=== PATIENT | female | born 1990 | race Caucasian/White ===

== ENCOUNTER → 2020-06-16 | Outpatient (CLI) | payer OTHER ==
[2020-06-16 12:48] LABS: HEMATOCRIT 42.8 % (36.0-47.0); HEMOGLOBIN 13.2 g/dl (12.0-15.5); MEAN CORPUSCULAR HEMOGLOBIN 25.3 pg (27.0-33.0); MEAN CORPUSCULAR HGB CONC 30.8 g/dl (32.0-36.5); PLATELET COUNT, AUTOMATED 232 10^3/uL (150-450); RED BLOOD COUNT 5.22 10^6/uL (4.00-5.40); WHITE BLOOD COUNT 7.9 10^3/uL (4.0-10.0)
[2020-06-16 13:31] LABS: FERRITIN 40 NG/ML (8-252); IRON (FE) 50 UG/DL (50-170); PERCENT SATURATION 15.7 % (13.2-45.0); TOTAL IRON BINDING CAPACITY 318 UG/DL (250-450)
[2020-06-16 13:45] LABS: HEPATITIS B SURFACE ANTIGEN NEGATIVE (NEGATIVE)
[2020-06-16 14:13] LABS: HEPATITIS C VIRUS ABY INDEX < 0.0 INDEX (<0.8)
== END ==
LOC: M LAB 09:50
PROVIDERS: ATTEND Student in an Organized Health Care Education/Training Program
DX: R74.8 Abnormal levels of other serum enzymes (principal)

== ENCOUNTER → 2020-06-29 | Outpatient (CLI) | payer OTHER ==
--- NOTE | 2020-06-30 10:13 | REP ---
INDICATION: VENTRAL HERNIA WITHOUT OBSTRUCTION OR GANG COMPARISON: None TECHNIQUE: Axial noncontrast images of the abdomen with coronal and sagittal reformations. This CT examination was performed using the following dose reduction techniques: Automated exposure control, adjustment of mA and/or kv according to the patient's size, and use of iterative reconstruction technique. FINDINGS: There is a midline fat containing ventral hernia extending to the towards the right periumbilical region which measures roughly 4 cm in diameter with an underlying defect through the rectus sheath measuring roughly 2.5 cm diameter. Lung bases are clear. Visualized heart and pericardium normal. Liver, spleen, pancreas, bilateral adrenal glands and kidneys are normal. The visualized enteric system is unremarkable and without obstruction or acute inflammatory process. No ascites. No free air. No adenopathy. No focal inflammatory stranding. Abdominal aorta without aneurysm. Musculoskeletal structures are intact and without acute osseous abnormality. IMPRESSION: Fat containing midline periumbilical ventral hernia. Small periumbilical hernia. <Electronically signed by Karel Villarreal > 06/30/20 [id number]
== END ==
LOC: M RAD 13:30
PROVIDERS: ATTEND Surgery
DX: K43.9 Ventral hernia without obstruction or gangrene (principal)

== ENCOUNTER → 2020-07-22 | Outpatient (CLI) | payer OTHER | LOC: M LABSMTC 11:51 | PROVIDERS: ATTEND Anesthesiology | DX: Z01.812 Encounter for preprocedural laboratory examination (principal); Z20.822 Contact with and (suspected) exposure to COVID-19 ==

== ENCOUNTER 2020-07-27 06:16 | Day surgery (SDC) | payer OTHER ==
[~2020-07-27] VITALS: Ht 170.2 cm; Wt 149.7 kg
--- OUTSIDE RECORDS SUMMARY | 2020-07-27 06:22 | CCD ---
Continuity of Care Document (CCD) Created on: 06/16/2020 Elisa Otero External Reference #: [id number] : 1990 Sex: Female Author Author Elisa CHUN M.D. Organization Unknown Address [address] [place] [address] Phone [phone] Care Team Providers Care Printed Circuit Boards Solder Leveler Name Role Phone Edith Perez M.D. [facility] [phone] Problems Description No Information Available Social History Type Date Description Comments Sex Unknown ETOH Use Denies alcohol use Tobacco Use Start: Unknown Denies Smoking Recreational Drug Use Denies Drug Use Allergies, Adverse Reactions, Alerts Active Allergies Reaction Severity Comments Date Latex Rash 06/16/2020 Adhesives Rash 06/16/2020 Medications Description No Active Medications Immunizations Description No Information Available Vital Signs Date Vital Result Comment 06/16/2020 9:20am BP Systolic 130 mmHg BP Diastolic 65 mmHg Height 67 inches 5'7" Weight 318.12 lb BMI (Body Mass Index) 49.8 kg/m2 [place] Body Weight 135 lb Weight 144.302 kg BSA (Body Surface Area) 2.46 m2 Results Description No Information Available Procedures Description No Information Available Medical Devices Description No Information Available Encounters Description No Information Available Assessments Description No Information Available Plan of Treatment No Information Available Functional Status Description No Information Available Mental Status Description No Information Available Referrals Refer to Reason for Referral Status Appt Date Prashant Chun M.D. UMBILICAL HERNIA Created 06/02/[address] [place] [address].[address] [place], [place] [address] [phone]
--- OUTSIDE RECORDS SUMMARY | 2020-07-27 06:22 | CCD ---
Author Author [facility] Organization [facility] Address Unknown Phone Unavailable Care Team Providers Care Cocktail Lounge Manager Name Role Phone Edith Perez Unavailable PROBLEMS Type Condition ICD9-CM Code CSQ30-NA Code Onset Dates Condition S tatus SNOMED Code Notes Problem Body mass index [BMI] 45.0-49.9, adult Z68.42 A ctive 414231893 Problem Morbid (severe) obesity due to excess calories E66 .01 Active 03689255342833 ALLERGIES No Known Allergies ENCOUNTERS from 1990 to 2020-06-09 Encounter Location Date Provider Diagnosis [facility] [address] [place] [address] Jun, Edith Chris Elevated liver enzymes R74.8 IMMUNIZATIONS Vaccine Route Administration Date Status Influenza (18 yrs & older) Flublok IM Intramuscular May 18, 2020 Administered SOCIAL HISTORY Tobacco Use: Social History Observation Description Date Details (start date - stop date) Never Smoker Sex Assigned At : Social History Observation Description Sex Assigned At Unknown Education: Question Answer Notes Level of Education: Finished High School Audit Question Answer Notes Total Score: 0 Interpretation: Alcohol Education Language: Question Answer Notes Languages spoken: Slovak Episcopalian: Question Answer Notes Episcopalian 33 None Drug and Alcohol Question Answer Notes Total Score: 0 Interpretation: No problems reported Tobacco Use: Question Answer Notes Are you a: never smoker REASON FOR REFERRAL No Information VITAL SIGNS No information MEDICATIONS No Information PROCEDURES No Information RESULTS No Results REASON FOR VISIT lab results MEDICAL (GENERAL) HISTORY Type Description Date Medical History asthma; rarely uses albuterol inhaler. Surgical History cholecystectomy 2018 Surgical History tonsillectomy and adenoids removed as a child Hospitalization History child Goals Section No Information Health Concerns No Information MEDICAL EQUIPMENT No Information MENTAL STATUS No Information FUNCTIONAL STATUS No Information ASSESSMENTS Encounter Date Diagnosis Assessment Notes Treatment Notes Treatm ent Clinical Notes Jun, Elevated liver enzymes (ICD-10 - R74.8) PLAN OF TREATMENT Treatment Notes Test Name Order Date HEPATITIS C ANTIBODY INDEX 2020-06-09 CBC - Complete Blood Count 2020-06-09 IRON (FE) 2020-06-09 TOTAL IRON BINDING CAPACIT 2020-06-09 FERRITIN 2020-06-09 HEPATITIS B SURFACE ANTIGEN 2020-06-09 Insurance Providers Payer Name Payer Address Payer Phone Insured Name Patient Relati onship to Insured Coverage Start Date Coverage End Date [facility] CLAIMS DEPT [address] [place] [phone] MEENU BLAKE self
--- OUTSIDE RECORDS SUMMARY | 2020-07-27 06:22 | CCD ---
Author Author [facility] Organization [facility] Address Unknown Phone Unavailable Care Team Providers Care Hoop Coiling Machine Operator Name Role Phone Edith Perez Unavailable PROBLEMS Type Condition ICD9-CM Code [id number] Code Onset Dates Condition S tatus SNOMED Code Notes Problem Body mass index [BMI] 45.0-49.9, adult Z68.42 A ctive 057789815 Problem Morbid (severe) obesity due to excess calories E66 .01 Active [id number] ALLERGIES No Known Allergies ENCOUNTERS from 1990 to 2020-05-19 Encounter Location Date Provider Diagnosis [facility] [address] [place] [address] May, Edith Chris Encounter for medical examination to [facility] Z00.00 ; Umbilical hernia without obstruction and without gangrene K42.9 ; Periumbilical abdominal pain R10.33 ; Morbid (severe) obesity due to excess calories E66.01 ; Body mass index [BMI] 45.0-49.9, adult Z68.42 and Encounter for immunization Z23 IMMUNIZATIONS Vaccine Route Administration Date Status Influenza [...] Education Language: Question Answer Notes Languages spoken: Kiswahili Pentecostalism: Question Answer Notes Pentecostalism 33 None Drug and Alcohol Question Answer Notes Total Score: 0 Interpretation: No problems reported Tobacco Use: Question Answer Notes Are you a: never smoker REASON FOR REFERRAL No Information VITAL SIGNS Weight 318.2 lbs May, Height 67 in May, BMI 49.83 kg/m2 May, Heart Rate 83 /min May, Respiratory Rate 18 /min May, Temperature 97.9 degrees Fahrenheit May, Oximetry 98 May, Blood pressure systolic 132 mm Hg May, Blood pressure diastolic 84 mm Hg May, MEDICATIONS No Known Medications PROCEDURES from 1988 to 2020-05-19 Procedure Date Ordered Result Body Site Immunization: Flublok Quadrivalent (18 years & older) 0.5mL IM (Influenza) 2020-05-18 N/A RESULTS No Results REASON FOR VISIT ESTABLISH CARE, abdominal pain MEDICAL (GENERAL) HISTORY Type Description Date Medical History asthma; rarely uses albuterol inhaler. Surgical History cholecystectomy 2017 Surgical History tonsillectomy and adenoids removed as a child Hospitalization History child Goals Section No Information Health Concerns No Information MEDICAL EQUIPMENT No Information MENTAL STATUS No Information FUNCTIONAL STATUS No Information ASSESSMENTS Encounter Date Diagnosis Assessment Notes Treatment Notes Treatm ent Clinical Notes May, Encounter for medical examin ation to establish care (ICD-10 - Z00.00) May, Umbilical hernia without obs truction and without gangrene (ICD-10 - K42.9) Abdominal wall defect is likely secondary to diastases recti as patient is 7 months . However due to significant size of ventral wall defect and associated pain will refer to general surgery for further evaluation. May, Periumbilical abdominal pain (ICD-10 - R10.33) Abdominal pain has been pretty stable as patient rates it a 4 out of 10. She denies any episodes of severe pain. Patient was advised that if she develops any sudden, severe abdominal pain, or any associated fevers, nausea, or vomiting with the abdominal pain she should go to the ER immediately. Patient expressed understanding and agreed with plan. May, Morbid (severe) obesity due to excess calories ( ICD-10 - E66.01) Patient was counseled on the importance of maintaining a normal weight. Patient was advised to increase physical activity and avoid processed (fatty foods/high in salt) foods to encourage weight loss which can lead to an improvement in overall health. May, Body mass index [BMI] 45.0-49.9, adult (ICD-10 - Z68.42) 15 May, 2020 Encounter for immunization (ICD-10 - Z23) Patient Educated with: FLU Vaccine, Inactivated [id number] (FLU Vaccine, Inactivated [id number]) Patient received flu shot today. PLAN OF TREATMENT Treatment Notes Assessment Notes Clinical Notes Umbilical hernia without obstruction and without gangrene Abdominal wall defect is likely secondary to diastases recti as patient is 7 months . However due to significant size of ventral wall defect and associated pain will refer to general surgery for further evaluation. Periumbilical abdominal pain Abdominal p ain has been pretty stable as patient rates it a 4 out of 10. She denies any episodes of severe pain. Patient was advised that if she develops any sudden, severe abdominal pain, or any associ ated fevers, nausea, or vomiting with the abdominal pain she should go to the ER immediately. Patient expressed understanding and agreed with plan. Morbid (severe) obesity due to excess calories Patient was counseled on the importance of maintaining a normal weight. Patient was advised to increase physical activity and avoid processed (fatty foods/high in salt) foods to encourage weight loss which can lead to an improvement in overall health. Encounter for immunization Patient Educated with: FLU Vaccine, Inactivated [id number] (FLU Vaccine, Inactivated [id number]) Patient received flu shot today. Treatment Notes Test Name Order Date HEMOGLOBIN A1c 2020-05-19 Comprehensive Metabolic Profile (CMP) 2020-05-19 LIPID PANEL (CARDIAC RISK) 2020-05-19 Next Appt Details prn Reason:as needed Follow Up:prnas needed Insurance Providers Payer Name Payer Address Payer Phone Insured Name Patient Relati onship to Insured Coverage Start Date Coverage End Date [facility] CLAIMS DEPT [address] [facility] [phone] MEENU BLAKE self
--- OUTSIDE RECORDS SUMMARY | 2020-07-27 06:24 | CCD ---
Author Author [facility] Organization [facility] Address Unknown Phone Unavailable Care Team Providers Care Javascript Application Developer Name Role Phone Germán Ricketts MD Unavailable Unavailable Germán Ricketts MD Unavailable Unavailable Germán Ricketts MD Unavailable Unavailable Germán Ricketts MD Unavailable Unavailable Germán Ricketts MD Unavailable Unavailable Germán Ricketts MD Unavailable Unavailable Germán Ricketts MD Unavailable Unavailable Germán Ricketts MD Unavailable Unavailable Germán Ricketts MD Unavailable Unavailable Germán Ricketts MD Unavailable Unavailable Germán Ricketts MD Unavailable Unavailable VITO REIS, Yovany RAZO Unavailable Unavailable Huron, Alla Unavailable Unavailable April, Alla Unavailable Unavailable Huron, Alla Unavailable Unavailable April, Alla Unavailable Unavailable Huron, Alla Unavailable Unavailable April, Alla Unavailable Unavailable Huron, Alla Unavailable Unavailable April, Alla Unavailable Unavailable Huron, Alla Unavailable Unavailable Huron, Alla Unavailable Unavailable Huron, Alla Unavailable Unavailable April, Alla Unavailable Unavailable April, Alla Unavailable Unavailable Huron, Alla Unavailable Unavailable Huron, Alla Unavailable Unavailable Frias-Dylon, Edgardo Unavailable Unavailable Frias-Dylon, Edgardo Unavailable Unavailable Frias-Dylon, Edgardo Unavailable Unavailable Frias-Dylon, Edgardo Unavailable Unavailable Frias-Dylon, Edgardo Unavailable Unavailable Frias-Dylon, Edgardo Unavailable Unavailable Frias-Dylon, Edgardo Unavailable Unavailable Frias-Dylon, Edgardo Unavailable Unavailable Frias-Dylon, Edgardo Unavailable Unavailable Frias-Dylon, Edgardo Unavailable Unavailable Frias-Dylon, Edgardo Unavailable Unavailable Frias-Dylon, Edgardo Unavailable Unavailable CANDELARIO GUNTER Unavailable Unavailable Basiouni, Basiouni MD Unavailable Unavailable Basiouni, Basiouni MD Unavailable Unavailable Basiouni, Basiouni MD Unavailable Unavailable Basiouni, Basiouni MD Unavailable Unavailable Basiouni, Basiouni MD Unavailable Unavailable Farrukh, Yumiko MD Unavailable Unavailable Farrukh, Yumiko MD Unavailable Unavailable Farrukh, Yumiko MD Unavailable Unavailable Farrukh, Yumiko MD Unavailable Unavailable Farrukh, Yumiko MD Unavailable Unavailable Farrukh, Yumiko MD Unavailable Unavailable Farrukh, Yumiko MD Unavailable Unavailable Farrukh, Yumiko MD Unavailable Unavailable Farrukh, Yumiko MD Unavailable Unavailable Farrukh, Yumiko MD Unavailable Unavailable Farrukh, Yumiko MD Unavailable Unavailable Farrukh, Yumiko MD Unavailable Unavailable Farrukh, Yumiko MD Unavailable Unavailable Farrukh, Yumiko MD Unavailable Unavailable Farrukh, Yumiko MD Unavailable Unavailable Farrukh, Yumiko MD Unavailable Unavailable Farrukh, Yumiko MD Unavailable Unavailable Farrukh, Yumiko MD Unavailable Unavailable Farrukh, Yumiko MD Unavailable Unavailable Farrukh, Yumiko MD Unavailable Unavailable Farrukh, Yumiko MD Unavailable Unavailable SHANTELL BAUGH Unavailable Unavailable KEMI DORMAN MD Unavailable Unavailable Lashay Nicolas MD Unavailable Unavailable Lashay Nicolas MD Unavailable Unavailable Lashay Nicolas MD Unavailable Unavailable Lashay Nicolas MD Unavailable Unavailable Lashay Nicolas MD Unavailable Unavailable Lashay Nicolas MD Unavailable Unavailable Lashay Nicolas MD Unavailable Unavailable Lashay Nicolas MD Unavailable Unavailable Lashay Nicolas MD Unavailable Unavailable Re-disclosure Warning The records that you are about to access may contain information from federally-assisted alcohol or drug abuse programs. If such information is present, then the following federally mandated warning applies: This information has been disclosed to you from records protected by federal confidentiality rules (42 CFR part 2). The federal rules prohibit you from making any further disclosure of this information unless further disclosure is expressly permitted by the written consent of the person to whom it pertains or as otherwise permitted by 42 CFR part 2. A general authorization for the release of medical or other information is NOT sufficient for this purpose. The Federal rules restrict any use of the information to criminally investigate or prosecute any alcohol or drug abuse patient.The records that you are about to access may contain highly sensitive health information, the redisclosure of which is protected by Article 27-F of the [facility] Public Health law. If you continue you may have access to information: Regarding HIV / AIDS; Provided by facilities licensed or operated by the [facility] Office of Mental Health; or Provided by the [facility] Office for People With Developmental Disabilities. If such information is present, then the following [facility] mandated warning applies: This information has been disclosed to you from confidential records which are protected by state law. State law prohibits you from making any further disclosure of this information without the specific written consent of the person to whom it pertains, or as otherwise permitted by law. Any unauthorized further disclosure in violation of state law may result in a fine or mcc sentence or both. A general authorization for the release of medical or other information is NOT sufficient authorization for further disc losure. Encounters Encounter Providers Location Date Indications Data Source(s ) Unknown [id number] [address] 06/08/2020 12:00:00 AM EST eCW1 ([facility]) Outpatient [address] [facility] [address] 05/18/2020 12:00:00 AM EST eCW1 ([facility]) OUTPATIENT [id number]-[facility] 12/02/2019 01:17:36 PM EDT [facility] Outpatient Attender: DANNI PADRON NP 5F-OB 0 11/20/2019 01:34:25 PM EDT - 11/20/2019 02:38:06 PM EDT [facility] OUTPATIENT 5F 11/12/2019 01:12:45 PM EDT [facility] 11/04/2019 02:05:23 PM EDT [facility] OUTPATIENT Referrer: DANNI PADRON NP 5F 0 10/29/2019 01:36:09 PM EDT - 10/29/2019 01:36:24 PM EDT [facility] INPATIENT Attender: SHANTELL BAUGH 5F-SLLD 10/11/2019 03:36: 43 PM EDT [facility] 10/10/2019 08:16:22 AM EDT [facility] Inpatient Attender: Aileen Gallagher MDAdmitter: AYAN DORMAN MD 5F-PP 10/10/2019 08:14:00 AM EDT - 10/14/2019 01:01:00 PM EDT [facility] Patient discharged. Outpatient Attender: DANNI PADRON NPReferrer: DANNI PADRON NP 5F-SLUS 10/09/2019 10:02:54 AM EDT - 10/09/2019 11:59:00 PM EDT [facility] Patient discharged. OUTPATIENT Attender: Germán Ricketts MD 5F-OB 0 09:57:15 AM EDT - 10/09/2019 11:17:05 AM EDT [facility] OUTPATIENT 5F 10/08/2019 03:19:19 PM EDT [facility] OUTPATIENT Attender: Alla RockReferrer: Alla carranza 5F-SLUS 10/06/2019 09:03:45 AM EDT - 10/06/2019 11:59:00 PM EDT [facility] Patient discharged. Outpatient Attender: DANNI PADRON NP 5F-OB 0 10/06/2019 08:31:22 AM EDT - 10/06/2019 09:51:48 AM EDT [facility] OUTPATIENT 5F-OB 10/03/2019 01:57:19 PM EDT [facility] Outpatient Attender: Edgardo ShawReferrer : Edgardo Shaw 5F-SLUS 10/02/2019 01:30:25 PM EDT - 10/02/2019 11:59:00 PM EDT [facility] Patient discharged. 10/02/2019 01:28:41 PM EDT [facility] 10/02/2019 01:28:26 PM EDT [facility] 10/02/2019 10:29:05 AM EDT [facility] 10/02/2019 10:24:58 AM EDT [facility] Outpatient Attender: Aileen Gallagher MDAdmitter: Aileen Gallagher MD 5F-SLLD 10/02/2019 10:23:00 AM EDT - 10/02/2019 12:32:00 PM EDT [facility] Patient discharged. Outpatient Attender: Edgardo Shaw 5F-OB 10/02/2019 09:32:42 AM EDT - 10/02/2019 10:42:16 AM EDT [facility] OUTPATIENT Attender: Alla RockReferrer: Alla carranza 5F-LB 09/29/2019 02:24:00 PM EDT - 09/29/2019 11:59:00 PM EDT [facility] Patient discharged. 5F-LB 09/29/2019 02:21:50 PM EDT [facility] Attender: Lashay Nicolas MD 5F-OB 09/29/2019 01:43:24 P M EDT [facility] Outpatient Attender: Alla Rock 5F-OB 09/03 01:06:55 PM EDT - 09/29/2019 02:19:40 PM EDT [facility] Outpatient Attender: Yumiko MARTINESeferrer: Lashay Nicolas MD 5F-SLUS 09/29/2019 01:05:42 PM EDT - 09/29/2019 02:23:00 PM EDT [facility] Patient discharged. OUTPATIENT 5F-OB 09/29/2019 07:02:41 AM EDT [facility] 09/25/2019 08:57:10 AM EDT [facility] Outpatient Attender: Alla RockReferrer: Alla carranza 5F-SLUS 09/25/2019 08:56:14 AM EDT - 09/25/2019 11:59:00 PM EDT [facility] Patient discharged. OUTPATIENT Attender: Lashay Nicolas MD 5F-OB 2019 08:55:59 AM EDT - 09/25/2019 10:33:27 AM EDT [facility] OUTPATIENT Referrer: DANNI PADRON NP 5F 0 09/24/2019 04:08:04 PM EDT - 09/24/2019 11:59:00 PM EDT [facility] Patient discharged. Outpatient Attender: Alla RockReferrer: Alla carranza 5F-LB 09/22/2019 09:48:00 AM EDT - 09/22/2019 11:59:00 PM EDT [facility] Patient discharged. Outpatient Attender: Alla Rock 5F-OB 09/03 08:32:49 AM EDT - 09/22/2019 09:41:03 AM EDT [facility] Outpatient Attender: Alla Rock 5F-OB 09/02 10:45:47 AM EDT - 09/19/2019 12:05:55 PM EDT [facility] Outpatient Attender: Alla RockReferrer: Alla carranza 5F-SLUS 09/19/2019 10:27:07 AM EDT - 09/19/2019 11:59:00 PM EDT [facility] Patient discharged. 09/19/2019 10:24:07 AM EDT [facility] 09/19/2019 10:23:51 AM EDT [facility] Outpatient Attender: Alla RockReferrer: Alla carranza 5F-LB 09/17/2019 11:04:00 AM EDT - 09/17/2019 11:59:00 PM EDT [facility] Patient discharged. OUTPATIENT Referrer: DANNI PADRON NP 5F 0 09/17/2019 10:38:25 AM EDT - 09/17/2019 11:03:15 AM EDT [facility] OUTPATIENT Attender: Alla RockReferrer: Alla carranza 5F-SLUS 09/17/2019 10:14:20 AM EDT - 09/17/2019 11:03:00 AM EDT [facility] Patient discharged. 09/17/2019 10:13:55 AM EDT [facility] 09/17/2019 10:13:40 AM EDT [facility] Outpatient Attender: Alla Rock 5F-OB 09/02 09:24:28 AM EDT - 09/17/2019 11:01:26 AM EDT [facility] OUTPATIENT 5F-OB 08/26/2019 08:21:57 AM EDT [facility] Outpatient Attender: Alla Rock 5F-OB 08/02 09:31:25 AM EDT - 08/20/2019 09:42:53 AM EDT [facility] OUTPATIENT Attender: DANNI PADRON NPReferrer: DANNI PADRON [employer] OPERATOR 5F-LB 08/06/2019 10:17:00 AM EST - 08/06/2019 11:59:00 PM [facility] Patient discharged. 5F-LB 08/06/2019 10:16:59 AM [facility] Outpatient Attender: DANNI PADRON [employer]ANT OPERATOR 5F-OB 0 08/06/2019 09:35:41 AM EST - 08/06/2019 10:12:10 AM [facility] OUTPATIENT 5F 07/30/2019 10:55:41 AM [facility] OUTPATIENT Attender: Alla Rock 5F-OB 07/05 01:18:27 PM EST - 07/16/2019 01:58:25 PM [facility] OUTPATIENT Referrer: DANNI PADRON [employer] OPERATOR 5F 0 07/16/2019 12:33:27 PM EST - 07/16/2019 02:48:42 PM [facility] OUTPATIENT Attender: CANDELARIO GUNTER 5F 07/04/2019 11:48:51 AM [facility] 06/16/2019 11:16:47 AM [facility] Outpatient Attender: Alla RockReferrer: Alla carranza 5F-SLUS 06/10/2019 12:21:12 PM EST - 06/10/2019 11:59:00 PM [facility] Patient discharged. OUTPATIENT Attender: lAla RockReferrer: Alla carranza 5F-LB 06/06/2019 10:44:00 AM EST - 06/06/2019 11:59:00 PM [facility] Patient discharged. 06/06/2019 10:38:50 AM [facility] OUTPATIENT Attender: CANDELARIO Dhillonender: Alla ledbetter 5F 06/06/2019 09:25:54 AM EST - 06/06/2019 11:59:00 PM EST [facility] Patient discharged. OUTPATIENT Attender: Alla Rock 5F-OB 08/2019 09:01:35 AM EST - 06/06/2019 09:52:27 AM EST [facility] 06/06/2019 09:01:32 AM [facility] Immunizations Vaccine Date Status Description Data Source(s) influenza, recombinant, quadrIvalent,injectable, prese rvative free 05/18/2020 02:56:00 PM EST completed eCW1 ([facility]) influenza, recombinant, quadrIvalent,injectable, prese rvative free 05/18/2020 02:56:00 PM EST completed eCW1 ([facility]) Tdap 08/06/2019 12:00:00 AM EST completed Tdap 08/06/2019 [facility] Medications Medication Brand Name Start Date Product Form Dose Route Admi nistrative Instructions Pharmacy Instructions Status Indications Reaction Description Data Source(s) Labetalol hydrochloride 200 MG Oral Tablet labetaloL ( NORMODYNE) 200 mg tablet labetaloL (NORMODYNE) 200 mg tablet 09/25/2019 12:00:00 AM EDT 200 mg oral aborted Gestational hypertension, third trimester Take 1 tablet (200 mg total) by mouth 2 (two) times a day. [facility] Gestational hypertension, third trimeste r blood pressure kit-extra large kit [id number] 09/25/2019 12:00:00 AM EDT 1 U Does not apply active Gestational hypertension, third trimester 1 Units 3 times a day. [facility] Gestational hypertension, third trimeste r Omeprazole 20 MG Delayed Release Oral Ca psule omeprazole (PriLOSEC) [address] capsule omeprazole (PriLOSEC) [address] capsule 08/06/2019 12:00:00 AM ES T 20 mg oral active Take 1 cap ruthie (20 mg total) by mouth 1 (one) time each day. Do not crush or chew. [facility] Sertraline 25 MG Oral Tablet sertraline (ZOLOFT) 25 mg tablet sertraline (ZOLOFT) 25 mg tablet 06/06/2019 12:00:00 AM EST active Depression affecting in second trimester, antepartum Ta ke one tablet PO daily for one week then increase to 2 tablets daily [facility] Depression affecting in second trimester, antepartum Aspirin 81 MG Chewable Tablet aspirin 81 mg chewable t ablet aspirin 81 mg chewable tablet 05/06/2019 12:00:00 AM EST 81 mg oral ac tive Chew 1 tablet (81 mg total) 1 (one) time each day. [facility] Insurance Providers Payer name Policy type / Coverage type Policy ID Covered constitution party ID Covered constitution party's relationship to mattson Policy [place] Plan Information [facility] [id number] 800 [facility] [id number] Self [id number] 800 [facility] [id number] MEDICAID [place] [id number] Self [id number] Problems, Conditions, and Diagnoses Code Display Name Description Problem Type Effective Dates Data Source(s) E66.01 [id number] Morbid (severe) obesity due to excess c alories Problem 05/18/2020 12:00:00 AM EST eCW1 ([facility]) Z68.42 [id number] Body mass index [BMI] 45.0-49.9, adult Pr oblem 05/18/2020 12:00:00 AM EST eCW1 ([facility]) Z33.1 state, incidental state, incidental Diagnosis 11/20/2019 01:34:25 PM EDT [facility] Follow-up Follow-up Diagnosis 10/29/2019 01:36:09 PM EDT [facility] Z34.90 Encounter for supervision of normal , unspecified, unspecified trimester Encounter for supervision of normal preg nazia, unspecified, unspecified trimester Diagnosis 10/10/2019 08:14:00 AM EDT [facility] Scheduled Induction Scheduled Induction Diagnosis 020 08:14:00 AM EDT [facility] O16.3 Unspecified maternal hypertension, third trimester Unspecified maternal hypertension, third trimester Diagnosis 10/09/2019 11:10:49 AM EDT [facility] Z34.93 Encounter for supervision of normal , unspecified, third trimester Encounter for supervision of normal preg nazia, unspecified, third trimester Diagnosis 10/09/2019 09:57:15 AM EDT [facility] Z34.83 Encounter for supervision of other ruby l , third trimester Encounter for supervision of other normal , third trimester Diagnosis 10/06/2019 09:03:45 AM EDT [facility] Hypertension Hypertension Diagnosis 10/02/2019 10:23:00 A M EDT [facility] O13.3 Gestational [-induc ed] hypertension without significant proteinuria, third trimester Gestational (-induced) hyperten mike without significant proteinuria, third trimester Diagnosis 10/01 09:32:42 AM EDT [facility] Z3A.36 36 weeks gestation of 36 weeks gestati on of Diagnosis 10/02/2019 09:32:42 AM EDT [facility] Z3A.35 35 weeks gestation of 35 weeks gestati on of Diagnosis 09/29/2019 01:06:55 PM EDT [facility] F41.1 Generalized anxiety disorder Generalized anxiety disor jameel Diagnosis 09/24/2019 04:08:04 PM EDT [facility] Z3A.34 34 weeks gestation of 34 weeks gestati on of Diagnosis 09/22/2019 08:32:49 AM EDT [facility] Z3A.30 30 weeks gestation of 30 weeks gestati on of Diagnosis 08/20/2019 09:31:25 AM EDT [facility] Z13.1 Encounter for screening for diabetes brian litus Encounter for screening for diabetes mellitus Diagnosis 08/06/2019 10:17:45 AM [facility] Z3A.28 28 weeks gestation of 28 weeks gestati on of Diagnosis 08/06/2019 10:17:45 AM [facility] Z3A.25 25 weeks gestation of 25 weeks gestati on of Diagnosis 07/16/2019 01:18:27 PM [facility] Z34.82 Encounter for supervision of other ruby l , second trimester Encounter for supervision of other normal , second trimester Diagnosis 07/16/2019 01:18:27 PM [facility] F32.9 Major depressive disorder, single episod e, unspecified Major depressive disorder, single episode, unspecified Diagnosis 07/16/2019 12:33:27 PM [facility] O99.342 Other mental disorders complicating preg nazia, second trimester Other mental disorders complicating , second trimester Diagnosis 07/16/2019 12:33:27 PM [facility] Z91.040 Latex allergy status Latex allergy status Diagnosis 06/06/2019 10:44:05 AM EST [facility] Z3A.19 19 weeks gestation of 19 weeks gestati on of Diagnosis 06/06/2019 09:01:35 AM [facility] Surgeries/Procedures Procedure Description Date Indications Data Source(s) Immunization: Flublok Quadrivalent (18 years & older) 0.5mL IM (Influenza) 05/18/2020 12:00:00 AM EST eCW1 ([facility]) CBC AND DIFFERENTIAL CBC AND DIFFERENTIAL Routine 10/14/2019 7:56 AM EDT 10/14/2019 11:56:00 AM EDT [facility] BLOOD COUNT COMPLETE AUTO&AUTO DIFRNTL WBC COUNT HC CBC W/ DIFFERENTIAL Routine 10/13/2019 5:58 AM EDT 10/13/2019 09:58:00 AM EDT [facility] BASIC METABOLIC PANEL CALCIUM TOTAL BASIC METABOLIC PANEL Routi ne 10/13/2019 5:58 AM EDT 10/13/2019 09:58:00 AM EDT [facility] CREATININE OTHER SOURCE MICROALBUMIN / CREATININE URINE RATIO R outine 10/10/2019 10:50 AM EDT 10/10/2019 02:50:00 PM EDT [facility] TOXICOLOGY SCREEN, URINE TOXICOLOGY SCREEN, URINE Routine 10/10/2019 10:50 AM EDT 10/10/2019 02:50:00 PM EDT [facility] URNLS DIP STICK/TABLET REAGENT AUTO MICROSCOPY URINALYSIS W ITH MICROSCOPIC Routine 10/10/2019 10:50 AM EDT 10/10/2019 02:50:00 PM EDT [facility] PROTHROMBIN TIME PROTHROMBIN TIME NO THERAPY OR UNKNOWN Routine 10/10/2019 10:01 AM EDT 10/10/2019 02:01:00 PM EDT [facility] THROMBOPLASTIN TIME PARTIAL PLASMA/WHOLE BLOOD PTT NO THERA PY OR UNKNOWN Routine 10/10/2019 10:01 AM EDT 10/10/2019 02:01:00 PM EDT [facility] FIBRINOGEN ANTIGEN FIBRINOGEN Routine 10/10/2019 10:01 AM EDT 10/10/2019 02:01:00 PM EDT [facility] BLOOD COUNT COMPLETE AUTO&AUTO DIFRNTL WBC COUNT HC CBC W/ DIFFERENTIAL Routine 10/10/2019 10:01 AM EDT 10/10/2019 02:01:00 PM EDT [facility] BLOOD TYPING ABO TYPE AND SCREEN STAT 10/10/2019 10:01 AM EDT 10/10/2019 02:01:00 PM EDT [facility] URIC ACID BLOOD URIC ACID Routine 10/10/2019 10:01 AM EDT 10/10/2019 02:01:00 PM EDT [facility] MAGNESIUM MAGNESIUM Routine 10/10/2019 10:01 AM EDT 10/10/2019 02:01:00 PM EDT [facility] LACTATE DEHYDROGENASE LDH LACTATE DEHYDROGENASE Routine 10/10/2019 10:01 AM EDT 10/10/2019 02:01:00 PM EDT [facility] COMPREHENSIVE METABOLIC PANEL COMPREHENSIVE METABOLIC PANEL Rou jennfyer 10/10/2019 10:01 AM EDT 10/10/2019 02:01:00 PM EDT [facility] BIOPHYSICAL PROFILE NON-STRESS TESTING US BIOPHYSICAL PROFILE WITH NON STRESS TEST Routine 10/09/2019 11:46 AM EDT Hypertension affecting in third trimester 36 weeks gestation of 10/09/2019 03:46:57 PM EDT 3 6 weeks gestation of pregnancyHypertension affecting in third trimester [facility] 36 weeks gestation of Hypertension affecting in thir d trimester BIOPHYSICAL PROFILE NON-STRESS TESTING US BIOPHYSICAL PROFILE WITH NON STRESS TEST Routine 10/06/2019 9:28 AM EDT care, subsequent , third trimester Gestational hypertension, third trimester 10/06/2019 01:28:2 7 PM EDT Gestational hypertension, third trimesterPrenatal care, subsequent , third trimester [facility] Gestational hypertension, third trimeste r care, subsequent , thi rd trimester BIOPHYSICAL PROFILE NON-STRESS TESTING US BIOPHYSICAL PROFILE WITH NON STRESS TEST Routine 10/02/2019 2:03 PM EDT 36 weeks gestation of Transient hypertension of in third trimester 10/02/2019 06:03:34 PM EDT Transient hypertension of in t hird [id number] weeks gestation of [facility] Transient hypertension of in t hird trimester 36 weeks gestation of CBC AND DIFFERENTIAL CBC AND DIFFERENTIAL STAT 10/02/2019 11:02 AM EDT 10/02/2019 03:02:00 PM EDT [facility] URIC ACID BLOOD URIC ACID STAT 10/02/2019 11:02 AM EDT 10/02/2019 03:02:00 PM EDT [facility] LACTATE DEHYDROGENASE LDH LACTATE DEHYDROGENASE STAT 0 11:02 AM EDT 10/02/2019 03:02:00 PM EDT [facility] COMPREHENSIVE METABOLIC PANEL COMPREHENSIVE METABOLIC PANEL STA T 10/02/2019 11:02 AM EDT 10/02/2019 03:02:00 PM EDT [facility] URINALYSIS W/MICROSCOPIC & CULTURE IF INDICATED <td><c ontent ID="[id number]">URINALYSIS W/MICROSCOPIC & CULTURE IF INDICATED</content></td><td>STAT</td><td>10/02/2019 11:00 AM EDT</td><td></td><td><paragraph styleCode="header">Results for this procedure are in the <content styleCode="[id number]">results section</content>.</paragraph></td> 10/02/2019 03:00:00 PM EDT [facility] HIV 1&2 AB/AG SCREEN <td><content ID="[email or web address]">HIV 1&2 AB/AG SCREEN</content></td><td>Routine</td><td>09/29/2019 2:25 PM EDT</td><td><paragraph> care, subsequent , third trimester</paragraph></td><td><paragraph styleCode="header">Results for this procedure are in the <content styleCode="[id number]">results section</content>.</paragraph></td> 09/29/2019 06:25:00 PM EDT care, subsequent , third trimester [facility] care, subsequent , thi rd trimester IADNA MULTIPLE ORGANISMS DIRECT PROBE TQ C. TRACHOMAT IS / N. GONORRHOEAE, DNA PROBE Routine 09/29/2019 2:25 PM EDT care, subsequent , third trimester 0 09/29/2019 06:25:00 PM EDT care, subsequent , third trimester [facility] care, subsequent , thi rd trimester BLOOD COUNT COMPLETE AUTOMATED CBC Routine 0 2:25 PM EDT care, subsequent , third trimester 0 09/29/2019 06:25:00 PM EDT care, subsequent , third trimester [facility] care, subsequent , thi rd trimester BIOPHYSICAL PROFILE NON-STRESS TESTING US BIOPHYSICAL PROFILE WITH NON STRESS TEST Routine 09/29/2019 1:44 PM EDT Gestational hypertension, third trimester 09/29/2019 05:44:0 3 PM EDT Gestational hypertension, third trimester [facility] Gestational hypertension, third trimeste r CULTURE, GENITAL STREP CULTURE, GENITAL STREP Routine 09/29/2019 09/29/2019 12:00:00 AM EDT [facility] US PREG UTERUS REAL TIME F/U TRNSABDL PER FETUS US OB FOLLOW UP/ONE TIME BIOPHYSICAL PROFILE WITH NON STRESS TEST Routine 09/25/2019 9:46 AM EDT care, subsequent , third trimester High blood pressure affecting in third trimester, antepartum 09/25/2019 01:46:39 PM EDT High blood pressure affecting in third trimester, antepartumPrenatal care, subsequent , third trimester [facility] High blood pressure affecting in third trimester, antepartum care, subsequent , thi rd trimester PROTEIN TOTAL XCPT REFRACTOMETRY URINE PROTEIN, URINE, RANDOM R outine 09/22/2019 9:55 AM EDT High blood pressure affecting in third trimester, antepartum 09/22/2019 01:55:00 PM EDT High blood pressure affecting in third trimester, antepartum [facility] High blood pressure affecting in third trimester, antepartum CREATININE OTHER SOURCE CREATININE, URINE, RANDOM Routine 09/22/2019 9:55 AM EDT High blood pressure affecting in third trimester, antepartum 09/22/2019 01:55:00 PM EDT High blood pressure affecting in third trimester, antepartum [facility] High blood pressure affecting in third trimester, antepartum CBC AND DIFFERENTIAL CBC AND DIFFERENTIAL Routine 09/22/2019 9:55 AM EDT High blood pressure affecting in third trimester, antepartum 09/22/2019 01:55:00 PM EDT High blood pressure affecting in third trimester, antepartum [facility] High blood pressure affecting in third trimester, antepartum URIC ACID BLOOD URIC ACID Routine 09/22/2019 9:55 AM EDT High blood pressure affecting in third trimester, antepartum 09/22/2019 01:55:00 PM EDT High blood pressure affecting in third trimester, antepartum [facility] High blood pressure affecting in third trimester, antepartum LACTATE DEHYDROGENASE LDH LACTATE DEHYDROGENASE Routine 09/22/2019 9:55 AM EDT High blood pressure affecting in third trimester, antepartum 09/22/2019 01:55:00 PM EDT High blood pressure affecting in third trimester, antepartum [facility] High blood pressure affecting in third trimester, antepartum COMPREHENSIVE METABOLIC PANEL COMPREHENSIVE METABOLIC PANEL Elvin gallegose 09/22/2019 9:55 AM EDT High blood pressure affecting in third trimester, antepartum 09/22/2019 01:55:00 PM EDT High blood pressure affecting in third trimester, antepartum [facility] High blood pressure affecting in third trimester, antepartum BIOPHYSICAL PROFILE NON-STRESS TESTING US BIOPHYSICAL PROFILE WITH NON STRESS TEST Routine 09/19/2019 10:48 AM EDT High blood pressure affecting in third trimester, antepartum 09/19/2019 02:48:11 PM EDT High blood pressure affecting in third trimester, antepartum [facility] High blood pressure affecting in third trimester, antepartum PROTHROMBIN TIME PROTHROMBIN TIME NO THERAPY OR UNKNOWN Routine 09/17/2019 11:06 AM EDT High blood pressure affecting in third trimester, antepartum 09/17/2019 03:06:00 PM EDT High blood pressure affecting in third trimester, antepartum [facility] High blood pressure affecting in third trimester, antepartum PROTEIN TOTAL XCPT REFRACTOMETRY URINE PROTEIN, URINE, RANDOM R outine 09/17/2019 11:06 AM EDT High blood pressure affecting in third trimester, antepartum 09/17/2019 03:06:00 PM EDT High blood pressure affecting in third trimester, antepartum [facility] High blood pressure affecting in third trimester, antepartum CREATININE OTHER SOURCE CREATININE, URINE, RANDOM Routine 09/17/2019 11:06 AM EDT High blood pressure affecting in third trimester, antepartum 09/17/2019 03:06:00 PM EDT High blood pressure affecting in third trimester, antepartum [facility] High blood pressure affecting in third trimester, antepartum THROMBOPLASTIN TIME PARTIAL PLASMA/WHOLE BLOOD PTT NO THERA PY OR UNKNOWN Routine 09/17/2019 11:06 AM EDT High blood pressure affecting in third trimester, antepartum 09/17/2019 03:06:00 PM EDT High blood pressure affecting in third trimester, antepartum [facility] High blood pressure affecting in third trimester, antepartum BLOOD COUNT COMPLETE AUTOMATED CBC Routine 0 11:06 AM EDT High blood pressure affecting in third trimester, antepartum 09/17/2019 03:06:00 PM EDT High blood pressure affecting in third trimester, antepartum [facility] High blood pressure affecting in third trimester, antepartum URIC ACID BLOOD URIC ACID Routine 09/17/2019 11:06 AM EDT High blood pressure affecting in third trimester, antepartum 09/17/2019 03:06:00 PM EDT High blood pressure affecting in third trimester, antepartum [facility] High blood pressure affecting in third trimester, antepartum LACTATE DEHYDROGENASE LDH LACTATE DEHYDROGENASE Routine 09/17/2019 11:06 AM EDT High blood pressure affecting in third trimester, antepartum 09/17/2019 03:06:00 PM EDT High blood pressure affecting in third trimester, antepartum [facility] High blood pressure affecting in third trimester, antepartum COMPREHENSIVE METABOLIC PANEL COMPREHENSIVE METABOLIC PANEL Elvin burger 09/17/2019 11:06 AM EDT High blood pressure affecting in third trimester, antepartum 09/17/2019 03:06:00 PM EDT High blood pressure affecting in third trimester, antepartum [facility] High blood pressure affecting in third trimester, antepartum BIOPHYSICAL PROFILE NON-STRESS TESTING US BIOPHYSICAL PROFILE WITH NON STRESS TEST Routine 09/17/2019 10:32 AM EDT care, subsequent , third trimester High blood pressure affecting in third trimester, antepartum 09/17/2019 02:32:59 PM EDT High blood pressure affecting in third trimester, antepartumPrenatal care, subsequent , third trimester [facility] High blood pressure affecting in third trimester, antepartum care, subsequent , thi rd trimester 50 GRAM GLUCOSE 50 GRAM GLUCOSE Routine 08/06/2019 11:[address] 28 weeks gestation of Screening for diabetes mellitus 08/06/2019 04:24:00 PM EST S creening for diabetes [id number] weeks gestation of [facility] Screening for diabetes mellitus 28 weeks gestation of BLOOD COUNT COMPLETE AUTOMATED CBC Routine 0 11:24 AM EST 28 weeks gestation of Screening for diabetes mellitus 08/06/2019 04:24:00 PM EST S creening for diabetes [id number] weeks gestation of [facility] Screening for diabetes mellitus 28 weeks gestation of HEMOGLOBIN GLYCOSYLATED A1C HEMOGLOBIN A1C Routine 08/06/2019 11:24 AM EST 28 weeks gestation of Screening for diabetes mellitus 08/06/2019 04:24:00 PM EST S creening for diabetes [id number] weeks gestation of [facility] Screening for diabetes mellitus 28 weeks gestation of US PREG UTERUS REAL TIME F/U TRNSABDL PER FETUS US OB FOLLOW UP TRANSABDOMINAL APPROACH Routine 06/10/2019 12:52 PM EST care, subsequent , second trimester 06/10/2019 05:52:00 PM EST care, subsequent , second trimester [facility] care, subsequent , sec ond trimester Results ID Date Data Source [id number] 07/22/2020 11:00:00 AM EST [facility] Name Value Range Interpretation Code Description Data Dominga rce(s) Supporting Document(s) SARS coronavirus 2 RNA Not Detected [facility] This lab was ordered by [facility] and reported by [facility]. ID Date Data Source [id number] 12/02/2019 01:17:36 PM EDT [facility] Name Value Range Interpretation Code Description Data Dominga rce(s) Supporting Document(s) Telephone Encounter [facility] PCXQXt4rGbGGLmCl59/NLQcsPFZjt9ZbDWxcPUo3PIvpFLEeV0UcTBT1gY4vZTM1YTcKXvEyNhNvLsAv lbm [file] YY5VOTO5JDLyHx6SHJFdLH5QGNHgSLUnLEKJTkDcLB AtZmQuDTBsOIAUBBulHUIkJ9KgXFX4EAMjMg8+YYpsDW3LI1UlONG0LEx6LF4+OVsrLU2IvUMGS7PduY QsJHsoM1HDEX8YPMC6WO5HbQPkIN3McZXZO8AfxGXhPg8yLQRwm2KbZe6gP3RGAJMQCSOcTIjbWXcuOT OaNKl8C2V4FDFlX3SGD048bPVroBn3Et4lX2WRBFnW OxSiSTzjNWlzNLSeKLn6M2P0FVIuH2JPG0ZlUjLzsuBkW4I+FnFvALTGOM1ILIUDMYc5D2J6xXCeL4M4 iDbWiXC1SP9MSU9BpENolCPbh10+ZzFXVyGvZ4MXE9YJBT5TYGt6Q7L8jUDnC7R6jLkBkFP5AN7AMI3T sJfpgAVvFo1nSKfyBWK+Jn3BZs5SJuMvOS8vjh8MNu LlZGQmDoyTMpt4V9ugefb8pYUhNnH5C4R2QtM9oZZpIY6OD1X8sJQcZUU8GRNmtGZ+Oz9Cm9JsCYDwKV h8H6mfRHVhQJOfJfIqwQ88G++6kfaeqRF0Q9q3CEPGsDRqiKsRfaMtK4bHMSI7d9B4ZJm/Ui1AKIE4aQ d3bKCmCFEoPFe7qD7ytEp7DfWdOF92IJOjDFhwzQ7p Kwj8P2Lel1CqSi3iDi9fnRSrMg5MNcNpPKT2xeGpSvAYJzF1nGvwwptmVTE9Q2y8sKF1Dg68d5llilQu a4ByBvC7FLsuHCJgJgRhcxRpNSP1rxLgsE8psyWnSa3VTIBhSJymuzZvCiTDCw2EPvAgDD57XtoefE5p dGE+DQogICAgICAgICAgICAgICAgICAgICAgICAgIC AgICAgICAgICAgICAgICAgICAgICAgICAgICAgICAgICAgICAgICAgICAgICAgICAgICAgICAgICAgIC AgICAgICAgICAgICAgDQogICAgICAgICAgICAgICAgICAgICAgICAgICAgICAgICAgICAgICAgICAgIC AgICAgICAgICAgICAgICAgICAgICAgICAgICAgICAg ICAgICAgICAgICAgICAgICAgICAgICAgDQogICAgICAgICAgICAgICAgICAgICAgICAgICAgICAgICAg ICAgICAgICAgICAgICAgICAgICAgICAgICAgICAgICAgICAgICAgICAgICAgICAgICAgICAgICAgICAg ICAgICAgDQogICAgICAgICAgICAgICAgICAgICAgIC AgICAgICAgICAgICAgICAgICAgICAgICAgICAgICAgICAgICAgICAgICAgICAgICAgICAgICAgICAgIC AgICAgICAgICAgICAgICAgDQogICAgICAgICAgICAgICAgICAgICAgICAgICAgICAgICAgICAgICAgIC AgICAgICAgICAgICAgICAgICAgICAgICAgICAgICAg ICAgICAgICAgICAgICAgICAgICAgICAgICAgDQogICAgICAgICAgICAgICAgICAgICAgICAgICAgICAg ICAgICAgICAgICAgICAgICAgICAgICAgICAgICAgICAgICAgICAgICAgICAgICAgICAgICAgICAgICAg ICAgICAgICAgDQogICAgICAgICAgICAgICAgICAgIC AgICAgICAgICAgICAgICAgICAgICAgICAgICAgICAgICAgICAgICAgICAgICAgICAgICAgICAgICAgIC AgICAgICAgICAgICAgICAgICAgDQogICAgICAgICAgICAgICAgICAgICAgICAgICAgICAgICAgICAgIC AgICAgICAgICAgICAgICAgICAgICAgICAgICAgICAg ICAgICAgICAgICAgICAgICAgICAgICAgICAgICAgDQogICAgICAgICAgICAgICAgICAgICAgICAgICAg ICAgICAgICAgICAgICAgICAgICAgICAgICAgICAgICAgICAgICAgICAgICAgICAgICAgICAgICAgICAg ICAgICAgICAgICAgDQogICAgICAgICAgICAgICAgIC AgICAgICAgICAgICAgICAgICAgICAgICAgICAgICAgICAgICAgICAgICAgICAgICAgICAgICAgICAgIC HcONDyRMTlEEAeZCRmCHSiCPUfADLqUDo3L4jhHRDqITFiAX6uYHv5Pg5+EJuZLzNvDKC3thOavW1RCP 8ob8DcONomUZMne4FtEQj3QP4YJAViCPkiGM5LHUrh tm1HYIWcOMWdcYNFi3trAoZuCBF8BHQhXcokCB4JZUDgO4twpqKvOGWjHXWEBC0ERfBjX2OihA68DKKU Cj4+LQgbhuKlVfuHOfDwWNSdy3LqKCq6GO7RUNBbFrote2VzHfQgVMNLUXtoDU6HTAN9CRUuCVHbDh4E TFHxR460srEyLY5XZu1HFdYwUI3aqo2POoRtRCCmOj tTYag8QVceNA8HuIVmPPqHZLeztUitgzUrGK5wx8GetXWpXYY1YFGtfkKjRRLmZ5ZrE0UfhI3uCVlNP1 exSLDiDc1zEU4cQXFqPEScRuD6KNEJOR3IAFVuFHCltWPeUJNdKJJCRC3LQMuuJRM8LmxywxAduQSzNA bhVR9WBBSatzGiKfGgEAXYKZu+Dk5MIO2pt9OmOYrn AQPrML3rmi2QOByPGaDyA0Q5bJOaT5K6BDqvDq0UANBuTLWzIbEbNWQQZIngNT4AYE6fmrI9YG1TwNFg LSYhSGLswBYpZSa3V64pmGLeFEwzII0OOBE+Lily+Nz8HJJRrDVLwBJEvPoOyJMTWJmAkL0AiL9CXz8Zw C8VrFB49fHebbaRtTOmaTR8TOX8xTIBsMFUKXB7EkR CeoS1nxqFdXzUqQLUHYiMaQ53xoQQwXLTeCPGnEAKvGr0GZHZbA1MgxnRnxIsfsjAsSLDnHAVQXF5JIT snnlKauRDryJgrXJ03gEipAB9MTh3LQrOqHW8uik9KeKQlGs9DPSUyUZ7ZWOZbDFAvCMFbRKH3VISiYf JdUUzxYORwVGZsMAZ3CNIvNYHjJQ9QJhIzJSYlHJx8 KQPaQIOcIPDrgs3IXRBnKOByEKI6QXLhBLIwCRUnWJduKYBiIJErJSS4QFNjUIApXJ3NGcChNVZrLSQi OkmhWPLcGZRivq6GZRBkYDEpURF7HOLuXPIoITKfDQfgKWZwPCSmVMS5DGXyCDVcNI0GGfGkVNMrLVW1 MJIxTVWbOTQeoz1VZCAiQTJrGtimKGOcNAJbWJDuWA ytHJOhPQHfJDz6CMKpZGAqPM8HLaZmRCObSOYjXAYqVMRgUTXyuq2PGYZkBUJiRIA0YpNeHWNaWHPoYE ouJADfJRP0AqWaLXZgGXBtHB1UKiCoNVHcDSW3GapsCXDiLWDfry0XVXElAVVkTvUmUdTrCCEbSLKqGZ nqPFLwLDC8Ovl9QPOdCPSeKN0SMdAfQXNrAEg3QcOg WLEyZPEbbk5LQWXdECYsYYG2AUJnGJGnVOTaLPogOVDiXHO2PvFhHOCoLXStKG9LQfTlUHFyTWo8ZeRf REKzQBKcpq8AYQQnIPJfTFEkZLDsPWFpVHIiHYcqIXHsLEDjQzy7DCGySZLjCH2CGrLhZQKoYsH4LPyc XZEnJSSewb7ASOSbZETwCDfeYsGbRXCoGOLnZTn9dh XcaKZtYGh3MH2OO3CaflOdEeUZQh1Jl280XFN9LHWiJw2TD6jvId1zUNWyVJAICs4PEMo0MKShTYJ3HS SgTMIwMnCoSYYdNLOeUQN8KmegSuQ2KSS+AVz4DoG4TJb0VzC2JPQ5VrBwIQStRFO3SIN5KDAaPCmoED 1bTTPDWs3+YXimxOBmqAfnWTGDHjKyPDDpWOljHJBHFw7E ID Date Data Source [id number] 11/20/2019 02:13:46 PM EDT [facility] Name Value Range Interpretation Code Description Data Dominga rce(s) Supporting Document(s) Progress Notes [facility] JXERYo4yHsFISnSo26/TVTblDFOtv2YaUJoqBVa6HGhmLLVrF5TrEMK8rV4yVGY6XZwMAdNwCnPiEhX9 lbm [file] HdFkYEvcGHBDVu3C ID Date Data Source [id number] 11/17/2019 07:59:05 AM EDT [facility] Name Value Range Interpretation Code Description Data Dominga rce(s) Supporting Document(s) Progress Notes [facility] VCFXWd2mEtYPZwYw25/RTMtaXSZvg0EnGOcqBUz0SOgxQQVeA4WxAGO8uI6eMLS6ICcTMeVyOpTqHdN0 lbm [file] LlXlCM3GCl7YRqJ4WPI6rLEtZb2CXcZ9FqIPDsYvMI1FAEk= ID Date Data Source [id number] 11/12/2019 01:12:45 PM EDT [facility] Name Value Range Interpretation Code Description Data Dominga rce(s) Supporting Document(s) Telephone Encounter [facility] RUTLMr6lYuUYQeBl30/EIYtmJEIqb9PiVNrfQSl7VYesINKhI2YmVRK7tS7eZDJ5HBhTHjLjPgBdMnHc lbm [file] BhNzViZjBiMzlhYzkwMWI+ET0gUCt+Ne2Mo3TllgR6rmSsMMjjCOq1Md5ZWJMHU4YBYg== ID Date Data Source [id number] 10/23/2019 09:28:43 AM EDT [facility] Please note additional history should in clude hypertension affecting pregnancyin third trimester.Report edited for Marta Crowell MD 10/23/2019 8:41 AM Electronically Signed by Marta Crowell MD 10/23/2019 9:28 AMPatient: MEENU BLAKE : 1990 PACS [facility]: ULTRASOUND BIOPHYSICAL PROFILE WITH NON STRESS TEST Provider: ALLA DRAKE BIOPHYSICAL PROFILECLINICAL HISTORY: Encounter for supervision of other normal , thirdtrimester.An ultrasound biophysical profile was performed.Comparison was made with a prior ultrasound biophysical profile dated 10/02/2019.There is a single live intrauterine with a cephalic presentation. Theplacenta is posterior. The amount of amniotic fluid is within normal limitswith a normal MARIELA of 150 mm. The cervix was not visualized. The heartrate is 150 beats per minute.The biophysical profile score is 8 out of a total of 8.IMPRESSION: SINGLE LIVE INTRAUTERINE WITH A BIOPHYSICAL PROFILE SCOREOF 8 OUT OF A TOTAL OF 8 AND ADDITIONAL FINDINGS ABOVE.Report edited for Marta Crowell MD 10/06/2019 10:45 AM Electronically Signed by Marta Crowell MD 10/06/2019 10:49 AM Name Value Range Interpretation Code Description Data Dominga rce(s) Supporting Document(s) ID Date Data Source [id number] 10/15/2019 03:44:03 PM EDT [facility] Name Value Range Interpretation Code Description Data Dominga rce(s) Supporting Document(s) Progress Notes [facility] DLKRWo8lFyDQLaNd60/ETWgdURTjj1IoNVohQGz7MWdyKBJmA7XnIAG7qI6tOGN0JYsSJkPjDbXuPLGi [facility] [file] AgICAgICAgICAgICAgICAgICAgICAgICAgICAgICAgICAgICAgICAgICAgICAgICAgICAgICAgICAgIC AgICAgICAgICANCiAgICAgICAgICAgICAgICAgICAg ICAgICAgICAgICAgICAgICAgICAgICAgICAgICAgICAgICAgICAgICAgICAgICAgICAgICAgICAgICAg ICAgICAgICAgICAgICAgICAgICANCiAgICAgICAgICAgICAgICAgICAgICAgICAgICAgICAgICAgICAg ICAgICAgICAgICAgICAgICAgICAgICAgICAgICAgIC AgICAgICAgICAgICAgICAgICAgICAgICAgICAgICANCiAgICAgICAgICAgICAgICAgICAgICAgICAgIC AgICAgICAgICAgICAgICAgICAgICAgICAgICAgICAgICAgICAgICAgICAgICAgICAgICAgICAgICAgIC AgICAgICAgICAgICANCiAgICAgICAgICAgICAgICAg ICAgICAgICAgICAgICAgICAgICAgICAgICAgICAgICAgICAgICAgICAgICAgICAgICAgICAgICAgICAg ICAgICAgICAgICAgICAgICAgICAgICANCiAgICAgICAgICAgICAgICAgICAgICAgICAgICAgICAgICAg ICAgICAgICAgICAgICAgICAgICAgICAgICAgICAgIC AgICAgICAgICAgICAgICAgICAgICAgICAgICAgICAgICANCiAgICAgICAgICAgICAgICAgICAgICAgIC AgICAgICAgICAgICAgICAgICAgICAgICAgICAgICAgICAgICAgICAgICAgICAgICAgICAgICAgICAgIC AgICAgICAgICAgICAgICANCiAgICAgICAgICAgICAg ICAgICAgICAgICAgICAgICAgICAgICAgICAgICAgICAgICAgICAgICAgICAgICAgICAgICAgICAgICAg ICAgICAgICAgICAgICAgICAgICAgICAgICANCiAgICAgICAgICAgICAgICAgICAgICAgICAgICAgICAg ICAgICAgICAgICAgICAgICAgICAgICAgICAgICAgIC AgICAgICAgICAgICAgICAgICAgICAgICAgICAgICAgICAgICANCiAgICAgICAgICAgICAgICAgICAgIC AgICAgICAgICAgICAgICAgICAgICAgICAgICAgICAgICAgICAgICAgICAgICAgICAgICAgICAgICAgIC AgICAgICAgICAgICAgICAgICANCjw/xODuU9tqvDHg cjY4U9drCt6TWy3JAW4ip8VvRCGzVIgsvbFiWylZEoGoBTOiCpaXRdn2XChxVE8UgZPzH8GtY4XuEPwl TK9YWCMsGMInhONhRKRuKOAcJbO0HXJaQOmxZC0MpAInXTqkZWAnCYMfTmBcYMPgCYYhPEXpWY8NHBHa Z938ljCkRy5WMr9PIuKzAX5wrf8EIBJuMFCrUopBLz u4CPigDL6IoHBomWB0WUVdQTJWLxQuI5ola7DrWJVoIHGPDTkcTS7Bx8DpgWTyJSq+Lh8SMF7fv8NyUR e0TILbOB9tws9RFAfYNiYwY8RdvQcaLMOfp2uvJZYwSY4eoTJyUBP3YWlcMX9fGGh6OBizLRTpWTLxQH 83EnQsOgBaBFX3WZVqXI7dJNraVT9VSMD2TCrfQICg QSKoR0hYCpQcDUfnYJNhoCdnWG2UUaAhP9CtbjTubSI1NUNxAEEJAn7+KAydtsIyYhtMYkTdCXBoe2Sk ALy2IG5LXKHgDUmcEL9KDESrzP6hZRetYX4NVuNqAVYdQMDLAvDfA95qeXAkEEr3U7FkIyQeXTYpIjrc ZXMgPDwvTmFtZXMgWyBdDQogID4+ID4+SZgoMJ3UBF xhxqLnLNEcXf6SRCGvLUXpEJ4mGIEtTBHqX9K7jGmjJHOCIcXgN7zzxfujUN7tZEWfR628zZozkcWoFO QtILZcNk4BGXVsJXE7YYVboEAoHpnvBYROGWhkRX0KeFWjZBI2eI4xCVmiYBPtWBJeW0pQIzNdeGngFG 51bGwgbnVsbCBdDQo+Vi4ADV5wb9NlETx6vdCuFDpk LRDuJNzvCJEmGQVjCIYeHMY1DTF4JPAOKgSgXBDlZTQvDUyzLTKfOKCqmy7DHSDxCLR9ZaN5NzCzBRKt WLInPFzaCUYtNTM3RNc7GAIkUKLaDS8RThBhEJIcIMAlJZjnSVOiDOSixx4QXGQcSQZiOaldHDGpGCSe TIUkPQdiVCXfCQFnFLI0ETDrSJRoDF8EZfHqEVFuDO M2YAPhSPPaAJShvr4YJEKiZVFyAAApUQTyABIsXRVyBQpfXJDbHEK2JRTrOBCzPAVaFV5NAbDoITVmPJ x5VsEoXDCwZTVfax3TXWYoTEDaZOW8JJNsGBPuWQLtCNgsYLStBUV1Awj6HIJxPBEgQK2YReKkQFSmCW t8FRKhZDTmFWAkav4ZZDApLECcYWu4SQGaDXDnCFAm NSnkLZYtMTXsOQGzZYTlYILeFB2FLpUnEYFnISDpFjCaEZSjODAygz3FMDJqRCIxSxD5RAHoHUAkTBUz FAbvFIVwSEMxBPiyDZBbAQZgML5WRyJnSXUrOdYpZThqGQPiOFLmqm8UBHTaHOPsApEnJPOhREFfWDHm UDorZSJmNCObEYj0UMNwGHWkHH8SNbDgTIMxKrL6Wk bfYUMxFEQojx4XVFAuPTXtZEbzLkPxZGTcUDNiEZgqAYGzDGL0EYs9OBAzRURxBT5ALzXfJVYtOiL8Ql gaHBHiGDZipk9MRCZgCBNaAuLmYWYcQODwMXEwHJjkYUIsWOW4VVt0GVJwZKPoBU5BSbMsESYfKrorDt ngBKNcUCFgne7CKFJrCDKnKyTbPPPgYRKxHKLoNSsd WAGjJEK8KCm6JJOuVIHaPY6RLzQzPNCoUAN0KXoqDPIyMQXzjp9BLOFgMKR8EXQmWcEzUGNtQEBjGSmh DLNbMHSmKvLuVFLwLAEyCC1XLsXvIICsHRI1RDBtBYUrSXAyzm1NYGIwORO6QLb8XGCoJXKxRUGsWRnx KDIgQSVsTxipLFXrFMVxUB7IWnVfEXMgMTN1PlDcRW XtBVXwwa3TQBQbQMP0IgW1YCTaSRQzJHMiXDqbPLQlXPTxFDM7VJCbHHVxVK9DBfEgFCRyNDA9XGCsDF VjCJHghu9PPYBhMKH4CUM0QaGzAIRxUWFjWIazKYZnGCE6UTr2OCNnPUQhWW7SVvKjYVaeIFIHBjw8ZJ dlO8s9JQC7Yn9ZN2Jwj2ZoKGInBAZXRWueQM9nteHz RAQfPq0SX2dKKal8GKP1QpFpADL1VSh9XmPjOoSfBJbgYCNpPkLjDKYbRf8iNUvtRkRaAtB9KahbSLr7 SpToSAF4GTI8M8SpLsH6IaLvHhDwQO4RFx3HMuT4ULA5tOGgMa2GXIC1ZQSOIiFsVA0ODDy= ID Date Data Source [id number] 10/14/2019 03:29:58 PM EDT [facility] History provided is care. High blood pressure affecting inthird trimester. History of preeclampsia. Hypertension affecting inthird trimester. Obesity class III.Report edited for Nazia Vazquez MD 10/14/2019 3:17 PM Electronically Signed by Nazia Vazquez MD 10/14/2019 3:29 PMPatient: MEENU BLAKE : 1990 PACS [facility]: ULTRASOUND BIOPHYSICAL PROFILE WITH NON STRESS TEST Provider: ALLA ROCK Sonographic evaluation of the uterus was performed as a limited exam. Theexamination was performed specifically to assess the biophysical profilescore. Anatomy not assessed at this time. Biophysical profile score is normal 8out of 8. Please see the data worksheet below.IMPRESSION: LIVE CEPHALIC PRESENTATION IUP. ANATOMY NOT ASSESSED AT THIS TIME. NORMAL BIOPHYSICAL PROFILE SCORE.Name: MEENU BLAKEPatient ID: [id number]-Xoc-Ioh:1990 -29 yrs -FemaleRef. Phys: KATINEBURDICKExam Date: 09/17/2019Exam Site: CARMELOYOUSIF [id number]:bpp, nopain, HTNProcedure: ULTRASOUND BIOPHYSICAL PROFILE WITH NON STRESS TESTFindingsExam Notes cx=4.0cmposition: cephplacenta: pos terior, grade 3KCA=444mpjTVF=197wbNFG=7/8Report edited for Nazia Vazquez MD 09/17/2019 10:39 AM Electronically Signed by Nazia Vazquez MD 09/17/2019 10:43 AM Name Value Range Interpretation Code Description Data Dominga rce(s) Supporting Document(s) ID Date Data Source [id number] 10/14/2019 01:05:45 PM EDT [facility] Name Value Range Interpretation Code Description Data Dominga rce(s) Supporting Document(s) Care Plan [facility] ATCDSf3dBxYLUgVi26/AONklVAQfy3WcYBooCVl3XVdiPQZjZ1AuFTI4cZ1mUQG6IJkAHgZcWhLqHCEs lbm [file] ID Date Data Source [id number] 10/14/2019 01:05:20 PM EDT [facility] Name Value Range Interpretation Code Description Data Dominga rce(s) Supporting Document(s) Nursing Note [facility] NDJTCt6hJhHDNsKr69/PUBwrVYBsv0QjBTgmEGp0NKdnPFTdP6RyAQT5pG9mCXS0HYhYBvXgAtCmTGHb lbm [file] AgICAgICAgICAgICAgICAgICAgICAgICAgICAgICAg ICAgICAgICAgICAgICAgICAgICAgICAgICAgICAgICAgDQogICAgICAgICAgICAgICAgICAgICAgICAg ICAgICAgICAgICAgICAgICAgICAgICAgICAgICAgICAgICAgICAgICAgICAgICAgICAgICAgICAgICAg ICAgICAgICAgICAgICAgDQogICAgICAgICAgICAgIC AgICAgICAgICAgICAgICAgICAgICAgICAgICAgICAgICAgICAgICAgICAgICAgICAgICAgICAgICAgIC AgICAgICAgICAgICAgICAgICAgICAgICAgDQogICAgICAgICAgICAgICAgICAgICAgICAgICAgICAgIC AgICAgICAgICAgICAgICAgICAgICAgICAgICAgICAg ICAgICAgICAgICAgICAgICAgICAgICAgICAgICAgICAgICAgDQogICAgICAgICAgICAgICAgICAgICAg ICAgICAgICAgICAgICAgICAgICAgICAgICAgICAgICAgICAgICAgICAgICAgICAgICAgICAgICAgICAg ICAgICAgICAgICAgICAgICAgDQogICAgICAgICAgIC AgICAgICAgICAgICAgICAgICAgICAgICAgICAgICAgICAgICAgICAgICAgICAgICAgICAgICAgICAgIC AgICAgICAgICAgICAgICAgICAgICAgICAgICAgDQogICAgICAgICAgICAgICAgICAgICAgICAgICAgIC AgICAgICAgICAgICAgICAgICAgICAgICAgICAgICAg ICAgICAgICAgICAgICAgICAgICAgICAgICAgICAgICAgICAgICAgDQogICAgICAgICAgICAgICAgICAg ICAgICAgICAgICAgICAgICAgICAgICAgICAgICAgICAgICAgICAgICAgICAgICAgICAgICAgICAgICAg ICAgICAgICAgICAgICAgICAgICAgDQogICAgICAgIC AgICAgICAgICAgICAgICAgICAgICAgICAgICAgICAgICAgICAgICAgICAgICAgICAgICAgICAgICAgIC AgICAgICAgICAgICAgICAgICAgICAgICAgICAgICAgDQogICAgICAgICAgICAgICAgICAgICAgICAgIC AgICAgICAgICAgICAgICAgICAgICAgICAgICAgICAg WQBbYHVtHNSxRVGpHUHcCCLjWCWrTOGrZGQcGVQgMUBkNJTyXZNbAKIxFIh6W5bxZFCxLDFuHT0iGVm6 Jz8+PTnDCmLcBDE6hvGhyO3WOL4mf1HnQHayHIMou0QbEFd2UV6WRILsDOlnWN2VZAiyqg2CPAWeARGr sZBPf7zjEbMdIJV0MDYwXxbyER4HAUSeJ7yxewBiKS EwITZKZC6CRdAbZ6SimU31ZMUTHc1+SQndufSiLsvKRrNcFDJvj3VyTEv4SP6PQJEgCrljg6YlKqRkHH HZBRzkLB9OEAE5NEKmSVEsGk3TZNGuA668bkJlJV9DOa5OOiAoMN7bno5BBjOaOAKsBijWRhg1OFvdIV 6JvNOtOXvTwCVuiD8iSJ3zrMGdQrzqHTMexM8fZFD2 NHHwLD5osidbZd1qIUKfHE8tEg1vOWXiMTJfVxW8YNDNVF6ZBYSdYRVdqNDaOUBkHSMOKI5YPOxbZXC1 CinkhbHqgPKrDSxbZZ0AQKLvhuNnGbAsZRJSZIb+Gd0IFU3yc4OrGJfeZEHzQN5zva7AXWyPVcXaJ7O4 rPCvY0Q9IWasYr7RONOuBSXeZpSnTTIVKIobIE8WWM 1lnlB7VQ0JvUOnONUdUBJntNVcOFp1U66vnUIpHAgjCI8VVBH+Lily+Xf5GLOLhONFdKANoYcNiFJJXKm YrX6HcL9URk0RsT2DnCT71tKcfgvWyQRpfKZ5MHC6oNEUuWOYVKS9JuQSkzS1bvlObOxVsIKRHUfMrM8 4cjKQnQJWrBTHyHQNcLf1NBUUsX0TyptFhnJscqrOi BHEmGBNHOS6VHMmztrJimGPdzCtcAU25cXqlLN4SSx4VVhBcHV8zrl7ZpOPzDc1XDSUgLO3GFSVyLUGn VJDuVAP9MYSfMiZlWDjqKOMkQIOeMPZ9OWLaSMSjTV3PRzDnVYXbOWg0SXFlVJQgTVWrvs0DVTCsEYLn GKV8ZkSoJDSlPVJqPIltASNoXNLrLUW1UVYlKRMeNU 6AHoAzAPHiSKGwKADpCNEtLPHzzi8KPGUxJAPiWGH0JQFpIXGpSGAjGZsdETRuLHLzIjO8ABOwSWBxDV 9MRbSrZJYkHRG2RZusABMqWZZfdv9VIKHgUZMcAccyLdWkTSMsSBTpSDudGOXnXCUtLzigNPCnTBKtUM 3HScNfDDGhALY6PYryHTYqQJQvvj2OYZXpQFMnZNK6 EZHaLSNiWIGuMHgxBSSrKHY6AZZmRRPyOMHrUV6OBlBpVOBgILM3TtHoDDJnDFTzrv0JJCHfFCRpEnw1 VHArKNEnCHRyEZadEJKgHGX7PWk9DLGdQEPnUE2FFqBdTZPpURzoFfZmBMYiUIStop5AIZLhLTRdVCP3 YuMrPQGrRWJfAGezXCWlATN3BMD0TJYzVAXcLW5TZi ThAYPfTYs4RpFdPXAmOSFjtf3RJWFiZPCmMCV0WfNxNRIlYTAuJXfjQYHhSJIuAIy9NDXuSZWeIE3YKm EcFJCnCdO3YBUvKLZvKGCbat0UGNIgBCKrWBdyMGZjSGLtFOQxNZv6gyLmvUJgFHc1EU0RT0XpcaDgDj HGAk7Jf581HSP6MMWbFz9VK9qzMe1uLDAxJXJMPr4X PRu7JrtnJMLtEDL9KfmlLkRcAPndKICaTJMpRgMgWAN0WEi+JEqtINNzIxFnDoZ2UZDvM4XnAkWzIDD1 DKBpMVK6KEPfGZ5kXDWFVc4+NKmkuRTtvWsrFZHKVrKgCEU6SRevRZEYIc8B ID Date Data Source [id number] 10/14/2019 11:47:09 AM EDT [facility] Name Value Range Interpretation Code Description Data Dominga rce(s) Supporting Document(s) Discharge Summary [facility] PZDQWj4lGeJZGbYz80/DWMydWKFek7XzHSatGOj6ROjeRDEyJ4BzWLP7pH3sNUE3RExRVaQnIgRxPOEl lbm [file] C5XLujKjDyAwI3Rc4vEHXYHj2+KEsxbFIdfLhtJFPNJnFwPCCnYSguSJIZVl3K ID Date Data Source [id number] 10/14/2019 08:38:47 AM EDT [facility] Name Value Range Interpretation Code Description Data Dominga rce(s) Supporting Document(s) Note [facility] FDKEWk1zGrGWEcCj21/EDKeaURGyp8YsAPjtJYa8YUaaUYOuV5VdQRO4jJ9bCNT7GOsOSlLhQeSuIKJb lbm VlCcoAVtIoJAQwAdnCZhXtUWxuZljlwKWaKG0DcCC8ISPcW78wKPIhXEEpA6IpDSCaZnB+Bz4HADCcoN YwAF3EKrwR7NkSlnRIPY4d4Q+d2pBQySku7YLayEzbVs2aFdKesHGevGM6JgrlPHi3V+Zcsy4RkKEhAr wXmmWZ4oe21q9zyZugm527iVFKWjx/rx+u7XCDAy2u nLHjjCxluG5EW2jqgerCAmqdY/07fdL2hdtAJjca8AOkp6yy4qAAVHzIPbIB49IQy9aeVSKrNFED2D1M Vs5NIZkRViqFE4GrTfsf5LMsYdrE/vznIQ0+rDzprnDCC7ot6awnFRxvCo3EbRa2WDPO4io7qowZRWL0 cXkvWHyYCWBkuLMq3nndZ6Ep4a0OuLEM46TCejZRRv 3LFZnZoDHMvd+1cmgg9ZddVzPv3tIZ5lEXEj8UIEWRlDUNCzOnOkmKOIxkobP9mVIJ7vAiCoWGJ1xg1q Bi+ffSmYJ3Q9ZYrrLLZOFdu7/7KOlXq9DQzMQVfaUycONlTcgDdIDt/dq3ru1Ji2h3euVzwWyuKEuz/O ir1nTQrD/+SKYf5YaV5wSWRIXGj9iGZXoBhiBeKMMd Y4MSr1Uo477iSqdfBKR8aFw0I3+VujR/vaPB65/wCQf2ulLFCnofdx9uWI+liMIuWtxho3mtAXJ1bwut f94TZ67pxV9StuWt35wBerSkB6xzMUUtQDVBQ9qKcprzL3uTe/4M+0vgrsbdR63ESD2cK+n/72ks6ipd ol8XTV+ULd2jBGwvo4uCDyookeccEe7Fp98Zw1sno7 Jpy9pm23ddqb0QSnem2Yxp0n0UakLxXulni9avLjtIjlh//ZTCEdYWQhkw86coxLHjs73rwXEsKnexxu o+Alice/7F1IQLNEuf0sqRrCZjyXniko6q52FarmXNAAKTII3b4QDjw1jnI9N0hQOgSWkhTP3vH17tx03F [file] RhNWFjNDhkMTQ+IQ8qQRq+Wl1Jz4LcbuE4qlLpQVaqQCZ8SM3PBVXQI5NDBh== ID Date Data Source [id number] 10/14/2019 08:32:06 AM EDT [facility] Name Value Range Interpretation Code Description Data Dominga rce(s) Supporting Document(s) Nursing Note [facility] UTTVBi8iHsEHJrZb80/LHGhaXWBsv2GcPWfaXKl2GMeoKTGbH7ZqAKW9wQ4hQDW7DLnZSfImGrDlJCNs lbm [file] upVUN4XKKiLBPsWWC0MFZ+GU7zSCv+Zh8Fq1HttzV4omGwTXbdQSK8Gp4PPVHAW2KIVd== ID Date Data Source [id number] 10/14/2019 08:17:00 AM EDT [facility] Name Value Range Interpretation Code Description Data Dominga rce(s) Supporting Document(s) WBC 8.94 x1000/ul 4.80-10.00 Normal (applies to non-numeric re sults) [facility] RBC 3.86 x1Mil/ul 4.20-5.40 Below low normal [facility] Hemoglobin 10.5 g/dl 12.0-16.0 Below low normal [facility] Hematocrit 31.9 % 37.0-47.0 Below low normal [facility] MCV 82.6 fL 81.0-99.0 Normal (applies to non-numeric resul ts) [facility] MCH 27.2 pg 27.0-31.0 Normal (applies to non-numeric resul ts) [facility] MCHC 32.9 g/dl 32.2-37.0 Normal (applies to non-numeric resul ts) [facility] RDW 14.2 % 11.5-14.5 Normal (applies to non-numeric resul ts) [facility] Platelet Count 172 x1000/ul 130-400 Normal (applies to non-numeric results) [facility] MPV 12.0 fL 9.4-12.4 Normal (applies to non-numeric resul ts) [facility] Neutrophils 70.2 % 40.0-74.0 Normal (applies to non-numeric resu lts) [facility] Lymphocytes 20.7 % 19.0-48.0 Normal (applies to non-numeric resu lts) [facility] Monocytes 5.8 % 3.4-9.0 Normal (applies to non-numeric resul ts) [facility] Eosinophils 2.2 % 0.0-7.0 Normal (applies to non-numeric resu lts) [facility] Basophils 0.4 % 0.0-2.0 Normal (applies to non-numeric resul ts) [facility] Immature Granulocytes 0.7 % 0.0-0.5 Above high normal [facility] Nucleated RBCs 0.00 % 0.00-0.20 Normal (applies to non-numeric r esults) [facility] Abs. Neutrophils 6.27 x1000/ul 1.92-8.31 Normal (applies to non-numeric results) [facility] Abs. Lymphocyte 1.85 x1000/ul 1.20-3.70 Normal (applies to non-n umeric results) [facility] Abs. Monocytes 0.52 x1000/ul 0.14-0.97 Normal (applies to non-nu meric results) [facility] Abs. Eosinophils 0.20 x1000/ul 0.00-0.76 Normal (applie s to non-numeric results) [facility] Abs. Basophils 0.04 x1000/ul 0.00-0.22 Normal (applies to non-n umeric results) [facility] Abs. Immature Gran. 0.06 x1000/ul 0.00-0.02 Above high normal [facility] Abs. Nucleated RBCs 0.00 x1000/ul 0.00-0.02 Normal (appl ies to non-numeric results) [facility] The above 24 analytes were performed by [place] [id number], ,[place] [address] ID Date Data Source [id number] 10/14/2019 07:12:04 AM EDT [facility] Name Value Range Interpretation Code Description Data Dominga rce(s) Supporting Document(s) Care Plan [facility] OHEPIf3nUuWADpDp40/PTShcXHHct5DzVAvgOQs3VDmrJPJnX5PwECL3zY3dWIE5LKpUMzLnOhFdVERt lb [file] JQSFRuKoHU6LESu= ID Date Data Source [id number] 10/13/2019 02:47:17 PM EDT [facility] Name Value Range Interpretation Code Description Data Dominga rce(s) Supporting Document(s) Progress Notes [facility] AGVMWg5gMsXBGuWd83/EKGfhPJZlu4SsZGnsMIz4KNiyTZJxQ3VeRJL3hF1eVXX1YSvUJqGzBoKyEIDu lbm [file] ID Date Data Source [id number] 10/13/2019 11:04:02 AM EDT [facility] Name Value Range Interpretation Code Description Data Dominga rce(s) Supporting Document(s) Progress Notes [facility] HVESFf7qPvTSDiBr93/PRQpcUDPjk4AwFPqhCYy6HQppYDUtX7WqIUK7uW2oZEW1TPoGRmTqClHxCOGw lbm [file] VEY0gMQnXx7VLKM2XCYDTaOqFJ8UYZi= ID Date Data Source [id number] 10/13/2019 09:15:46 AM EDT [facility] Name Value Range Interpretation Code Description Data Dominga rce(s) Supporting Document(s) Anesthesia Postprocedure Evaluation [facility] TNLHEh5fQsIOXmEr86/USCroHMLzk3JcKSlxDIh7RRyxJLMbG1LdKQQ6aH9qVED7QLmBLbXmHvIrVDTn lbm [file] lou+U6+/9N+/J/2y3+r2l6loumaV0ok5ga52yzaSx8f /IxEgbqshRt8UEHhJnSavy0FppgywcKcg7wbQrHIeoedCG/jiPGqFlaNsiN02f+HZul8S4C0R/jujw0q Dj26xGtj3chagIhBqlob228orq5GtWz27x3a0vWqXL5i9KJ5rE9HdodqxXz+FE0/7eho8h90qGJZ13XB /wjWTjeSP8c7VNlBDco0ZyHjeU0BdHsyQrotGIEr+1 nvnBtUvtnYaSIoGrm4zq1WpWRch3OBpd5RaymABti+r3IElIFwJl6q9NHHqBf4O5Xidg9Ah9R5/SxqrX 2NeNgL/L7TB1NMpHQyZ2R80xc4w1m8cch19E7juYMyw0On5rA2iqfn+E4NqC6dqG90jxCW+X9C5w14pS g2igUBwizd3kp6L8iVk6jWN774NuxTn50OXFCuWG26 46y/lpsIymf7ZuuK6s1oOpI82hRMq930Ptc40Tb/WLyQfxYyHNBA2FYbOu4S+DGMk1/BD2g6/C+DGtjb Ggr4jvUUEtyg5le0jGg7jHhmm/bZxXU3EUpLM3ifuiMt6Jf+cL5PQbjTa5xxUsJUFB8ly//O5wrMr+Julián [file] ONJfGxBnXK3SSx2WUeE6SXW1tLZvOl8OZuUvRRGQSvVgZQ3JGSi= ID Date Data Source [id number] 10/13/2019 06:36:00 AM EDT [facility] Name Value Range Interpretation Code Description Data Dominga rce(s) Supporting Document(s) Blood Urea Nitrogen 7 mg/dl 7-18 Normal (applies to non-nume mary results) [facility] Creatinine 0.70 mg/dl 0.51-0.95 Normal (applies to non-numeric resul ts) [facility] N-Acetylcysteine (NAC) and Metamizole zhang ve the potential to falselydepress Creatinine results. Baseline values before medication adminstration are recommended. Patients undergoing treatment with phenindione will have falselydepressed results. Patients on phenindione therapy should be tested with an alternativeCREA method. Glomerular Filtration Rate >90.00 mL/min/1.73m2 [facility] GFR Reference Ranges:Normal Function or Mild Renal Disease,if clinically at risk:>or= 60Moderately decreased:30 - 59Severely decreased:15 - 29Renal Failure:<15 Please note that the MDRD equation requires an additional adjustment forAfrican-Americans (multiply the GFR result by 1.210).Glomarular Filtration Rate (GFR) is estimated based on the MDRDequation, which assumes a steady state for creatinine (Jennifer Int Med 139/2 137-149, 2002), as recommended by the NationalKidney Disease Education Program in conjunction with the National Institutes of Health and the National KidneyFoundation. The [place] method used in calculating this result is traceable to IDMS standards. Glucose 72 mg/dl 70-110 Normal (applies to non-numeric resul ts) [facility] Sulfasalazine has the potential to false ly depress Glucose results. Sulfapyridine has the potential to falsely elevate Glucose results. Baseline values before medication administration are recommended. Calcium 8.8 mg/dl 8.5-10.1 Normal (applies to non-numeric resul ts) [facility] Sodium 139 mEq/L 136-145 Normal (applies to non-numeric resul ts) [facility] Potassium 4.2 mEq/L 3.5-5.1 Normal (applies to non-numeric resul ts) [facility] Chloride 109.0 mEq/L 98.0-107.0 Above high normal [facility] Anion Gap 11.2 [facility] Carbon Dioxide 23.0 mMol/L 21.0-32.0 Normal (applies to non-numeric results) [facility] The above 10 analytes were performed by [place] [id number], ,[place] [id number] ID Date Data Source [id number] 10/13/2019 06:19:00 AM EDT [facility] Name Value Range Interpretation Code Description Data Dominga rce(s) Supporting Document(s) WBC 10.35 x1000/ul 4.80-10.00 Above high normal [facility] RBC 3.85 x1Mil/ul 4.20-5.40 Below low normal [facility] Hemoglobin 10.3 g/dl 12.0-16.0 Below low normal [facility] Hematocrit 31.5 % 37.0-47.0 Below low normal [facility] MCV 81.8 fL 81.0-99.0 Normal (applies to non-numeric resul ts) [facility] MCH 26.8 pg 27.0-31.0 Below low normal [facility] MCHC 32.7 g/dl 32.2-37.0 Normal (applies to non-numeric resul ts) [facility] RDW 14.0 % 11.5-14.5 Normal (applies to non-numeric resul ts) [facility] Platelet Count 172 x1000/ul 130-400 Normal (applies to non-numeric results) [facility] MPV 11.9 fL 9.4-12.4 Normal (applies to non-numeric resul ts) [facility] Neutrophils 66.6 % 40.0-74.0 Normal (applies to non-numeric resu lts) [facility] Lymphocytes 24.2 % 19.0-48.0 Normal (applies to non-numeric resu lts) [facility] Monocytes 6.4 % 3.4-9.0 Normal (applies to non-numeric resul ts) [facility] Eosinophils 1.3 % 0.0-7.0 Normal (applies to non-numeric resu lts) [facility] Basophils 0.2 % 0.0-2.0 Normal (applies to non-numeric resul ts) [facility] Immature Granulocytes 1.3 % 0.0-0.5 Above high normal [facility] Nucleated RBCs 0.00 % 0.00-0.20 Normal (applies to non-numeric r esults) [facility] Abs. Neutrophils 6.91 x1000/ul 1.92-8.31 Normal (applies to non-numeric results) [facility] Abs. Lymphocyte 2.50 x1000/ul 1.20-3.70 Normal (applies to non-n umeric results) [facility] Abs. Monocytes 0.66 x1000/ul 0.14-0.97 Normal (applies to non-nu meric results) [facility] Abs. Eosinophils 0.13 x1000/ul 0.00-0.76 Normal (applie s to non-numeric results) [facility] Abs. Basophils 0.02 x1000/ul 0.00-0.22 Normal (applies to non-n umeric results) [facility] Abs. Immature Gran. 0.13 x1000/ul 0.00-0.02 Above high normal [facility] Abs. Nucleated RBCs 0.00 x1000/ul 0.00-0.02 Normal (appl ies to non-numeric results) [facility] The above 24 analytes were performed by [facility] [email or web address],[facility] [id number],[place] [address] ID Date Data Source [id number] 10/12/2019 11:28:46 PM EDT [facility] Name Value Range Interpretation Code Description Data Dominga rce(s) Supporting Document(s) Care Plan [facility] AWJHQd6lOxAGDpSw15/JFCaaHPWxm9OxVVgkTAz3BMpyYJEnM4SfPCZ7zY1uCGS5RRbMHiVoYlWfSQUc [facility] [file] AgICAgICAgICAgICAgICAgICAgICAgICAgICAgICAg ICAgICAgICAgICAgICAgICAgICAgICAgICAgICAgICAgICAgICANCiAgICAgICAgICAgICAgICAgICAg ICAgICAgICAgICAgICAgICAgICAgICAgICAgICAgICAgICAgICAgICAgICAgICAgICAgICAgICAgICAg ICAgICAgICAgICAgICAgICAgICANCiAgICAgICAgIC AgICAgICAgICAgICAgICAgICAgICAgICAgICAgICAgICAgICAgICAgICAgICAgICAgICAgICAgICAgIC AgICAgICAgICAgICAgICAgICAgICAgICAgICAgICANCiAgICAgICAgICAgICAgICAgICAgICAgICAgIC AgICAgICAgICAgICAgICAgICAgICAgICAgICAgICAg ICAgICAgICAgICAgICAgICAgICAgICAgICAgICAgICAgICAgICAgICANCiAgICAgICAgICAgICAgICAg ICAgICAgICAgICAgICAgICAgICAgICAgICAgICAgICAgICAgICAgICAgICAgICAgICAgICAgICAgICAg ICAgICAgICAgICAgICAgICAgICAgICANCiAgICAgIC AgICAgICAgICAgICAgICAgICAgICAgICAgICAgICAgICAgICAgICAgICAgICAgICAgICAgICAgICAgIC AgICAgICAgICAgICAgICAgICAgICAgICAgICAgICAgICANCiAgICAgICAgICAgICAgICAgICAgICAgIC AgICAgICAgICAgICAgICAgICAgICAgICAgICAgICAg ICAgICAgICAgICAgICAgICAgICAgICAgICAgICAgICAgICAgICAgICAgICANCiAgICAgICAgICAgICAg ICAgICAgICAgICAgICAgICAgICAgICAgICAgICAgICAgICAgICAgICAgICAgICAgICAgICAgICAgICAg ICAgICAgICAgICAgICAgICAgICAgICAgICANCiAgIC AgICAgICAgICAgICAgICAgICAgICAgICAgICAgICAgICAgICAgICAgICAgICAgICAgICAgICAgICAgIC AgICAgICAgICAgICAgICAgICAgICAgICAgICAgICAgICAgICANCiAgICAgICAgICAgICAgICAgICAgIC AgICAgICAgICAgICAgICAgICAgICAgICAgICAgICAg ICAgICAgICAgICAgICAgICAgICAgICAgICAgICAgICAgICAgICAgICAgICAgICANCjw/lSGqJ2hjqDLv nxJ3F4hrAs4RJh5ZJG7jo0ZeLQXoERgnzzSbShvFUkEoEXWyRrwZDny1BNvjHP3JrJUeS1AeW4SaDVht RT1GQZUkUCAyeCFxIKDbQCDlRlG7QMQoSSdxYO7AfY XkVBunBKYvKSHmTH6MNAOyX398mvYaBY2MBo1TZvCrAZ5fwk5YEgNeJSRqKyxHQed5RNieDU5EmPDqxY VnVxXsPBTWSgHrL4khl5TqSzBlQRFDIBhpCK7Iy1NulSUrNDl+Ty1EAB8gv3IrMKieJyVkYD9cjd1DZJ eFAjGnM6UfmMgkPONvkuKlUVvtkhEmkVGFjHzhe1Wc EBSZHYYlcsoiSy8dQTFaEL4gDW0iKHAlBOYnHoB7SHSCNY6GNEGuHYUseQHiHHGpOBGOJZ4UUNttEKE8 UrpqduWnqROzZCpkZR5QTGKytuHuBgKsYJYUQOj+Oe1OUY5zg8WuIXpxEFKvJK4jiu8YIJcNDtCiA8M2 rUUpW6J7IUyaFg9HNRQiAKObZfNbYJHYRJxzLQ1GSJ 4ksdX8BY1KvFRaWSDxTOLfmCNyAKd1V88cuVDnNWneVV9UFAX+Lily+Xb4LFFHdUFUcELFtLoBaNNECQw FeL2UwI4REy1VtB9WaWL95uZnbseFhQRjxAN5TZC0jUBYpNOSONT8MxCTryI7jkrMoKmJyAMMVEhAjS9 7fxEVdCOElPXDfUAFrVr9WFTWbR6PruvMbxMmpcaJm NEWaTZNVCJ9WZTqnfyYgcZCzkJmdYH51nCouAO5XRb0CTvSgWW0pgf1FwCQmVj2FRUFeQW7BLBLaLWLu SHJaSED9GCHfFaVwQGaiMEJgDOBvHAX2VMRxPLEiQR8NDgMfZVPcKHfiZIDkKVYaKTSxor1OQLEkBWSo BAO4CIWbSHSuFJPfYEwxRWZyAAJsNRQ9WFHnTWBqEH 7MOjFgDTTsXDK2GTfjNKQcEDFbaj2PGFGzAQLoFXH3OMVrELWzPIJbKDzrGBNaFXAiKSV4GYMeORTmLO 7UVjJnXNZwBBHxDAJgPAOoBBExbo9QAQBoSBIbRyPaJYFbRJYnBKJwPKkiKBGhCQWoThj6WSChGZCzXA 3NVlGdZUBcYND3WFFeMPKyEVHddl3OTGBrKXJyKyc7 QxIpAJNoWNVkXIlaLXPkWWA5YQFxMHJrPRAuZQ2LHpWdNWSuQSW2ByebMHYuKUNdty4RMURjPVPvDrN6 GoJfTWFbWSXcXNatNTYwQKO2BGc9GRKuJJNmRO0JKfVvSXOqDYjnOfRdLFHvXKWcdo2ZDYGdUTEvFwl0 QZOjYKDxXJGmBNhvNBAsGIE8XHFaQVHeTBBgZC1OSp BjHEVcAWliHqDoGUDiOWGlib4TLAGmFJLwZKx3BVTfFOYxHKWbYEyhQZGlRAUgHPm2CYCmQDDrQD5AQx KwBIQxEwDmTGklYJXuSAUezn8XQMKrFVRvEZEwPhBiNFFhQLEvTAx1kxDzzUZuREo8TY3RC1RdjzZbEy QZLg3Le191UDY3TEZhXq6XA8nbJb1kTQPmLJNPJt2Z WSq2THX9ASO7QAYlRLA7W9Y1KLAnAFXiBSXwTKrbXYOhRPb+PYu6RRe3LFKuXhO6UnJkINgiIYWfVOZv SIGzR3GgWeUuVZ6iPXDOGb6+CIwkiAGnlSxrWBYLRbQzCrV7KVikCWAAGo3U ID Date Data Source [id number] 10/12/2019 10:01:49 PM EDT [facility] Name Value Range Interpretation Code Description Data Dominga rce(s) Supporting Document(s) Progress Notes [facility] JRRESl0zIeNLSwUr53/VUIwwJENcg6LpXZgmPAt3WDxbDUPrI3PtXTY7zR4tHAB3PQzOGjRcAgUdNZSm lbm [file] AgICAgICAgICAgICAgICAgICAgICAgICAgICAgICAgICAgICAgICAgICAgICAgICAgICAgICAgICAgIC AgICAgICAgICAgICANCiAgICAgICAgICAgICAgICAgICAgICAgICAgICAgICAgICAgICAgICAgICAgIC AgICAgICAgICAgICAgICAgICAgICAgICAgICAgICAg ICAgICAgICAgICAgICAgICAgICAgICANCiAgICAgICAgICAgICAgICAgICAgICAgICAgICAgICAgICAg ICAgICAgICAgICAgICAgICAgICAgICAgICAgICAgICAgICAgICAgICAgICAgICAgICAgICAgICAgICAg ICAgICANCiAgICAgICAgICAgICAgICAgICAgICAgIC AgICAgICAgICAgICAgICAgICAgICAgICAgICAgICAgICAgICAgICAgICAgICAgICAgICAgICAgICAgIC AgICAgICAgICAgICAgICANCiAgICAgICAgICAgICAgICAgICAgICAgICAgICAgICAgICAgICAgICAgIC AgICAgICAgICAgICAgICAgICAgICAgICAgICAgICAg ICAgICAgICAgICAgICAgICAgICAgICAgICANCiAgICAgICAgICAgICAgICAgICAgICAgICAgICAgICAg ICAgICAgICAgICAgICAgICAgICAgICAgICAgICAgICAgICAgICAgICAgICAgICAgICAgICAgICAgICAg ICAgICAgICANCiAgICAgICAgICAgICAgICAgICAgIC AgICAgICAgICAgICAgICAgICAgICAgICAgICAgICAgICAgICAgICAgICAgICAgICAgICAgICAgICAgIC AgICAgICAgICAgICAgICAgICANCiAgICAgICAgICAgICAgICAgICAgICAgICAgICAgICAgICAgICAgIC AgICAgICAgICAgICAgICAgICAgICAgICAgICAgICAg ICAgICAgICAgICAgICAgICAgICAgICAgICAgICANCiAgICAgICAgICAgICAgICAgICAgICAgICAgICAg ICAgICAgICAgICAgICAgICAgICAgICAgICAgICAgICAgICAgICAgICAgICAgICAgICAgICAgICAgICAg ICAgICAgICAgICANCiAgICAgICAgICAgICAgICAgIC AgICAgICAgICAgICAgICAgICAgICAgICAgICAgICAgICAgICAgICAgICAgICAgICAgICAgICAgICAgIC AgICAgICAgICAgICAgICAgICAgICANCjw/kAZjA3eqhLOtmtJ2B1klOi2ZNj3IMG7ce5DmJCCdUIfqpe XwQrcYWcGdLREyCxiRCvj6BLjkVU9ZzGSyF1EnR0La VPkiKI3TCTPnBFZqnJBaXADvBMNgGbE7REBcVEdmPU1VwXRjMAhvCRIdZVZkYOZhJQCzYU1VHNJzZ123 qbJvYa2RIh1XVlMgNR2ahc2QSwAdGEJnFrcYQkb0JWhcKD2IbHLpaCCyJcXbLZUEKjFvF0jqb9IyZatb ETVZFYsgXE2Ds4XzwGTlBBn+Zk1OPO7by7JlFWhoIy VlMT5qkg1LQSjBDxHcX1FcyJgwRHZoh0ggBLHvWR3buGIlUDA8RQw7lJyvhbJRGLogb25qLP9VJJX8MW QcAPOnOqPhJHUuZnliKcVUHBnQFdPpL1Atd8OyUfM3ASEwCpMkNVksSOVoNjL0RS04aShiHK3CYHAsMR RwLT17ZZI6WAVuAa6EQz1HVdGgSU9gbr8ZXhSpYD7g hs2MYImMYaJhR0F2oEQcD6Uqyy67HS5DxAR1aLPfEL5HbS6iPS3Yo4YmXLXyFvSzRTHmIZXdAFFuBUHm RfWvBI5ESDSrZbNkeEDrOJJkJADjAUMiXgH8BOTvOT0FSUSfFAInfUXjZPWrLJsuYDMwVNSzQJUymLim EI9wYWgvAQ3JNLa5J0DpA2xhGN0yBk1jKMa+Pg0KZW 4wc8KjFZqoNIQiPL1qkw2ZTZkRSnBoO1L3uZZsX0V0YGgqSc5TGMMrZSVbRhIqSMPSMUgxIG2TAW1jzd S7AC7ZnKFwICZaVPXdvOXkGTs4L00inGKlAOzaVF5NVEU+Lily+Sk1KADLvTYPhOUSlOwCcWOKFAjShH3 JhV0UWu5StO9JfZO94uBylciPpLQupPT0VAN1dHMVa JUNQYA8OzMBkjH3pfqXzQuOvGYAZQcUpG96knRBzZSMqKZN3MSOfNn6ISREhF4PrgfCajQtbwsWkSEJj KSPNZC5NFTeiosVmoUQjtXcjJH77oLyqGX8LTr9NFdFeYC8wga0MiFObZp0WIWCqAM9IMMKsPZBnVZKc KGY3OACjRjUdZWqqASAgUNLcRQC1MWKxXPVuDV0SQt RhIBWpLOP9CxQnPYYgPAMnfi1PBTWqRSMrFjKsFFMmJUNfZWJvTJbxTHEbGZAsCUD3LFObIXNpQD0UBm SnUKCnKMF1AmPhSPQaRGEest1YOYVmRENpCncyHeUxMMYfVMWrFXtmJFNpLKPgWwO3HBQmOYQtST4XQk YbMJZmKPO8FjArSMSwKRQqma9WVJUjUTHaTAT1ZTUx AYHpSLTrLQizOSImZBJ1MTI9BNNuAAHePL0ZBvFaGYKhTIVjYypyYRQmAYBefy0WYIZdSOVfHfFgCcAk BWOkTHQxQImsPLLkZRC2Hbv0BCOlRHLgUS8BLlPwAFExMYz4UDHvAOMqRWLqxk4GAMRfDQQvMvs6EtDn AVJdEXMyNYufVFNoKZR6MbY9ZKHkPIIgXO3QJaOvUX SnGQs6ImVaGOGqSOIiyx4WWBUvGMQoIJKlASHoNCQrWYLnCNrfBFMoQELlDZY4UXHwBODtZP5GKtLlGV HaMUKcDqGeUULpZGPsxc1PSLUeSPHjWYR3PsMvJMYeTRMgVMelHRRmOJBuNGT1YYWsMQZxPT8CQwViNA NqRWG5KwDhVUTbUYIegk2GOPMbRQSiBIgsDAKzKAJw OUTaJCmrYYJpJAPlCpH8TTGwQAIpXW5UTnGiMKTkFBV0BVTuNGKnDOKqgj8AIKZvMINbFdw9IMGsIWTt AMIkKOcrEQXtCJI0KHm7BCFgALZwTF1RPoXhLFbmPRQXKad6GHkfD6d7EROtHP0FC3Hfj6PdIjjoIAFZ ZDuoLG1xfxLbHAGzKw6UK6gWBhzwXBf3WdQaVuviQt QfFmFnQOVxIxQjBAHfVXrvTLSdXd0qRUUsRUggSfThLMPjJUTcCxO4SuWuGDCdQxRfMDA1KsHcLtXfEV 9IEe2ZQlP0DCV1tQUwFf7STJVaTZWHLqUvVC2IVMf= ID Date Data Source [id number] 10/12/2019 06:33:20 PM EDT [facility] Name Value Range Interpretation Code Description Data Dominga rce(s) Supporting Document(s) Nursing Note [facility] PEVLTt3dIfCZXrIs41/LKWwtOESks8UaHWdwZZa9DEkaLMKuI9ZaZGX2xS8rZAW4ICqTYsRkNxDfOEYp lbm [file] UaBIOhDHTaHvYpTQ7UXc7UCpW0ORL6pAWjAb3PShFoTZbPXfHbIZ1TDNj= ID Date Data Source [id number] 10/12/2019 08:17:38 AM EDT [facility] Name Value Range Interpretation Code Description Data Dominga rce(s) Supporting Document(s) Anesthesia Procedure Notes [facility] QRFUIo2iMmQWSdFi16/DEGrvNYOxi3WtCGadUSa2LGccBYMwL9BxINU7tB5qGSH6EWjYYgZnLmJjFVSf lbm [file] Zw8ZQgR4TWfCAtBpDR1YJWj= ID Date Data Source [id number] 10/12/2019 08:17:18 AM EDT [facility] Name Value Range Interpretation Code Description Data Dominga rce(s) Supporting Document(s) Progress Notes [facility] TOGSRp8xCuJDWlCa33/HEPuyNEWqk6IfUVdtJVh8GEhvBUDvA3DmDVF8lS8wLAN4QVnSYhCzFtPmADUa lbm [file] fyB1ogGtKCnaLLb4MN6JGEYME7YQZe== ID Date Data Source [id number] 10/12/2019 04:15:21 AM EDT [facility] Name Value Range Interpretation Code Description Data Dominga rce(s) Supporting Document(s) Progress Notes [facility] WXVSKk7wUdVOCmDa94/EJEljGWZgp1NqFFvuWDr7TWhdOQQxA2XyOFC5mJ3gEKJ5AIrQPfUzTzTtCSDt lbm JiCunIOiEyHLJzAtqUIrPsFAufWczveYOjUG4RcIR5QKEzF27jOGJvIKKoW1IvNJQ5SOH+Pp1TTLXefG FyTR7PVbpE1Msaifz8AO7l4J3hIgO78QWppKrg6sluSDwjSvy8udJxyIeqqhcaMj4qwA4Mb0D4C6ggdg JJODdX2NNvEttAuDIevwJh5RNX+11R3liByFF8/25+ HqjO9nN1/cwp0Hggf90Vk0jLjWXQxgs8Jo6gI89+4CQPbJU3PpeBZbzmTjIzGArRDE+0NLOanJNXKfmX jHv+iPCjWwC2vEcDOy8H6h/EovTrfAcGt9M49YA/tnVwj/YfIRZvgqoiY1SaGfaA3YHlndtYEm7k5DDj twkFCHJNQF886i1gbCV1ZgVmOeBBtR7cb6gOLuCh31 YuBD0NKXaZVZbXBwbEBCiOuKYNtH7gqejkzYMgAv9xZg9mPpnAeH+ztCoApNaYKtvJA4vlM8d2YV9ZBS MgBqYB3Lqu7x1ASMBNzvcw6I99HigzahGm57IQKcQDnHtusln3i/odAPhlPgHsU7ISfh2sK6rYsDJpJn H+7WsHcNPkhsKBEKksNSbV3VOFSHnjpaScAoX16kZn pV839gjk4df+YW1S3KdfRrMt4WaNT0s03H5es3gsTBr3VMM8sz0QzObFGnuR9BBc7lvFDcVzir38+O0s iCjpRSRNXY16R5+l9IT/7sbtE939m8kzEwvWhN19GGa9YVJP7PXz4XC1OqlLazxzJAwGodwVGp0K8kT6 iXNl8ehmScfl6ynP9FgNjH5Q+UzyBd2oYDUk/fD+Ws xI0PKfcxj3/k6tcxG6LX2wLGs3+U4hmy9Wj85WOU2JVBxulwliHNPlHILv/Buul1LTeFb0sDJQfWDgBk DDYq81U+gd9L04NN+JnqEF2RsuuA3fJfQPGjQLTufFEaXao3X8ui39CU+B0BTysa0lWxli2kRh5V5uHg EB54je81pd9p8znNHHGK5RIwba7CgPZA/presley++zJ+V [file] AgICAgICAgICAgICAgICAgICAgICAgICAgICAgICAgICAgICAgICAgICAgICAgICAgICAgICAgICAgIC AgICAgICAgDQogICAgICAgICAgICAgICAgICAgICAg ICAgICAgICAgICAgICAgICAgICAgICAgICAgICAgICAgICAgICAgICAgICAgICAgICAgICAgICAgICAg ICAgICAgICAgICAgICAgICAgDQogICAgICAgICAgICAgICAgICAgICAgICAgICAgICAgICAgICAgICAg ICAgICAgICAgICAgICAgICAgICAgICAgICAgICAgIC AgICAgICAgICAgICAgICAgICAgICAgICAgICAgDQogICAgICAgICAgICAgICAgICAgICAgICAgICAgIC AgICAgICAgICAgICAgICAgICAgICAgICAgICAgICAgICAgICAgICAgICAgICAgICAgICAgICAgICAgIC AgICAgICAgICAgDQogICAgICAgICAgICAgICAgICAg ICAgICAgICAgICAgICAgICAgICAgICAgICAgICAgICAgICAgICAgICAgICAgICAgICAgICAgICAgICAg ICAgICAgICAgICAgICAgICAgICAgDQogICAgICAgICAgICAgICAgICAgICAgICAgICAgICAgICAgICAg ICAgICAgICAgICAgICAgICAgICAgICAgICAgICAgIC AgICAgICAgICAgICAgICAgICAgICAgICAgICAgICAgDQogICAgICAgICAgICAgICAgICAgICAgICAgIC AgICAgICAgICAgICAgICAgICAgICAgICAgICAgICAgICAgICAgICAgICAgICAgICAgICAgICAgICAgIC AgICAgICAgICAgICAgDQogICAgICAgICAgICAgICAg ICAgICAgICAgICAgICAgICAgICAgICAgICAgICAgICAgICAgICAgICAgICAgICAgICAgICAgICAgICAg ICAgICAgICAgICAgICAgICAgICAgICAgDQogICAgICAgICAgICAgICAgICAgICAgICAgICAgICAgICAg ICAgICAgICAgICAgICAgICAgICAgICAgICAgICAgIC AgICAgICAgICAgICAgICAgICAgICAgICAgICAgICAgICAgDQogICAgICAgICAgICAgICAgICAgICAgIC AgICAgICAgICAgICAgICAgICAgICAgICAgICAgICAgICAgICAgICAgICAgICAgICAgICAgICAgICAgIC SwVYHoKGDpXIIwJTZfEWHfZYq7V3tlTGFkHLZePQ5h FDn8Wh6+ODxEVyElITM5jmJvgM2EBO1nu6IwIOvhOLLti7YrWKs9GI0XKNMuPJlpPD1SVOdmzb0QXUXj WXVleEXPs8wvUcOzLLQ1IYIlVlkhWG2EEQOgG0gqmbKxGWAfBUNGJP7GQhMaF8HrfK54ABWJUz0+DQpl ehEeFizVGwT3OJRhi1EwHFn8HT3ZWUJgMcphk5UvPi sdEGENMWxwQH3YJOT6IXO3VBIvWw2XSIEvD802wbRiGD8NGn4JVcFbIB2jyz4BOkepWLQgWffYNas0UY kyTD6FfJWfCMuAhh8zcdTlxaQLg6HasqPggDSRzbcrfeVLOYV6nA2tq86rouEBIKDmskzmTPBmTSKrZS 9uQV3rRFMnAIS3TzAkNFSWXV6CUZEzRLWqwAAlJVVk FAIHAW6BDKobYXV1IbulzhBgiUFxZEjcJW4VRUXshrEfWqwuAWLFBMo+Pd7EVL2xp7DjQXapHFYdAH8t bc1LUTzXHyIlB4V3fLZvE1V0TSxcUc4CYVQcSYGsOtGzRWXUYPygAK8XJT0kvhG5TR2AqYVaDAVvFZNc uIUhRIp3G82oaKJqBQjcUI1SBZO+Lily+Xx7DARSqRS FxRNHrXtGnAQGLBqHkN2FnV9OMx1TxJ9CgUG18pZzsjzJqDOgmIN6FNT1zMOFeTBUOMS2UlZXfqY1cxb QhCUVrOIDMGiAsD38jjIXbSUJzTNX3ISNxNy6DAZGpZ8JwkiPzpVpikkWjOFArFONXLE9UQUabdvNmxH NhxEmmID77qRwwVB4OFz6HLpMvDG7xis1NqMJmSg4B SLLsXJ0JNORkDKOjITHcTJN6NMDxKgFmGNzsXBGdTDWcFIF1SDWeUVIqIH3WDdEcTWGhWjLgZSQoUOUu SDRwma6TZBDpJUAcGil5ToCfTGMnEMYoKVthQYElYHKiOME8ERLqMIEnIO5WOuAfEZXhDMHaRyVqCCCc XWEtka7VIFQfPDCdDwCgOCOkWOTzFBDsIRsqKMYkXG WoYrgtKFSnAMDkHU5UFqZxHMPpNRS4IZJwYTBpRXSvlz0FOVZeITCrZbL4VULdAIWqJTSwVLreQJUqDH I0MrB3LDIjAEKsVX5LPbMrDUKvENE3LaBaNPQgVVLuvu7LPDHrWFIdWYJvZpMuAKCbZECjNGtaDIAnJG X7VrF9RAWuOZBpEF1IKxPbRJZlZAo1KtPxLKKtNJGq qk2BRARdQXJhAqi9YYMcFUDdQWVjTEjvPDKuQAZ2IBIlUSQgYYLiCE1PDvHrLLBtYZevYdZzBRLhRUZk ir9LKMOuEEDjSBYsTOWaYGOzINVxWVyaYQXsROX3NxhkETRgJUXuTQ0VNpSfGWGcUDn1JdKxLDToNKJo jq6ZXBWpOYXaXNRgFESpENBuUECeXJwuPBPmSLGdUw nzRJUhKZJvJT4PEqIhYNSqXjM9SnJyCVErZNUhtc5LIFQnHAYvNJirKEPeBXDcEKWxSYpqLXUnYKZxNM VqHGVjDIFgGS4XBxVhGPEcThHuTswrPZWcISLevc9ZQDGzLTWcFcMtGfSmXNYrLUZjDHxfTZEdTOS9GG O3OETmJEHeKI3MRkStWZXtBrNsPdTxKLCtSOCifg7S XAPkUCKlNBO8HwVrDFMnIFKiIJk1weUteJShYYy8FF1UQ8IybhTkZoGZEw5Oa109TMIcGWTyRz9UR5uf Yz8nHUPyRKQIOr4WYUl5SXf3WFOzNjEcOMYeMUX0ZdFtDnOjTVQjPpImZjLiI9G+OFb1Shp9FZJ6QgP9 MsZ8WUfxOCWgVcYxEqV4OLX1EOPbAY5gVHOZEf1+RXhumMFmhWoqFPQZFxQ1JCM3PQxsYFJGCt7X ID Date Data Source [id number] 10/11/2019 07:37:47 PM EDT [facility] Name Value Range Interpretation Code Description Data Dominga rce(s) Supporting Document(s) Progress Notes [facility] VAKNOr3nFyXARfLo54/XHQuhXDWck6HoIEtpPGn5JBpdFZWnY4TwNAH2zO5gAAC5PNyHYjFqBoQqGFG1 lbm [file] AgICAgICAgICAgICAgICAgICAgICAgICAgICAgICAgICAgICAgICAgICAgICAgICAgICAgICAgICAgIC AgICAgICAgICAgICAgICAgICAgICAgICAgICAgICAg PH7WJJEtPDUpPRTbNPAsQKYpKMHcNWHyVSKpMCKfBKWbSZNqRSDqEPOxQOBnCWBcHWPbPXQgKVDdDETa FSIjIFAnLAQyPNPcRCCjVMRfJLXcCVTuRRGiCRKtCNMwNNJuAQUvMBKpFW0QRVJtVEXbEBSfHMQzTYRi ICAgICAgICAgICAgICAgICAgICAgICAgICAgICAgIC EySNFqGOXpVEIlVJOkJKDzUIMzGOGiMFFoNRKtYMDyLGVwBKGkFZAoMPUvKEPvXWQrZXLaFZ0RQIXiAI AgICAgICAgICAgICAgICAgICAgICAgICAgICAgICAgICAgICAgICAgICAgICAgICAgICAgICAgICAgIC AgICAgICAgICAgICAgICAgICAgICAgICAgICAgICAg ABCzMO4GVNQeYNAnDLNnIICaBLSfBMWgWDLgWDVgJMCrMMCdZKXgLQQyEXVcITBnJIOrHDKbVATqFCRt HDMmJYDtVZXrVHVrSEQaFHYmLHVhKGJmZTQgWYVvAVNqINXrJBVmSACeBRYvYN5TTLLvTQGiNHQhRTSv ICAgICAgICAgICAgICAgICAgICAgICAgICAgICAgIC PaRAIkACUyNYUkYIHlIYMyWLPtIMNjHGTxYMPzEZYuQGUnLHPgPETiOYLqFRJcTEHkAIYqGDPdDS1EFV AgICAgICAgICAgICAgICAgICAgICAgICAgICAgICAgICAgICAgICAgICAgICAgICAgICAgICAgICAgIC AgICAgICAgICAgICAgICAgICAgICAgICAgICAgICAg SIGnVMUfJX3ZMWTwONZbZPHwIMUvTVTyVQWzIUMwIGDrOWSnBVEwAIEsSVWzQAUdZIPxOEUoNZIgXLIz JEAkQOJmFVGqUYElRCIhEESrTJAaUARgCAYnJCWvRRAwVVYwEOZzXDZmRFJpDOQaHZ7TVZMlOEBrQMGe ICAgICAgICAgICAgICAgICAgICAgICAgICAgICAgIC AgICAgICAgICAgICAgICAgICAgICAgICAgICAgICAgICAgICAgICAgICAgICAgICAgICAgICAgICAgIA 0KICAgICAgICAgICAgICAgICAgICAgICAgICAgICAgICAgICAgICAgICAgICAgICAgICAgICAgICAgIC AgICAgICAgICAgICAgICAgICAgICAgICAgICAgICAg IDRrBEQeVQHjVC4ZJR57sUFll9T3UQUgUE7xiqo/Wq9ZDRaapvPwaYNaMF9NWnDrLW8ide8YTnKvXH7w se8XVHcUYyAeZ8G9xDQfOJDkDMTTBuRjP37oRKxcXp31XLqjPGIsJaEmHDi7Wj1PWxQlV5xiBCXcFiH3 GNWmEqGtSAkzKG7Bx7FocOIxSLv+Sa3AZD0hy1CdME zlXRWsQE1geo1TBPeSJpNkV7GyqjD7PYY6UTBnXv3ZLAAoLWEbwXZfPOCcNHVPCbRpE9PsdC95BRYBLf 4+ZVliaxQiPsiTXpB7PLWtx8ObPFs9BX7LJOYbBJd6gUZvOXFuU1Olx9SbIl00ARJwLqyxHkDcJE4dJb TbgIeccU9zTRgdXYNvjm8hOH3BOSW0ZFLnWG2gXZDs YNC6StG9UOQGYO5FMGNnDCZxaGVvYGYjSMINJO8JUNlgDOH7PlssolHolYWtDQhtXE3JBQTmrjQdKlmo MCBSDQo+Pk9MCP3xe5CiHDbaNJKtXS6tdc0BTWsBVuJyS9D6yDNzX8I0IBcaSv5YJBMqNHYqStGwGSOB GAnvBZ3POH9mmyB3LU9AiLXwJFIfRZSbrLVaGHg5I6 6maNLoGFlcRM2OLYV+Lily+Bv8RRUAzJDVaTANwDqOiTICAFpEaR1FbL1YVe6FoH9DvHM98aMepwyWtFG idCN9NEG8nEJEaCYIZFB7WoFTkyS5ulvRmIYNpIDIOIiDrJ23cyHWkIKKlJMS0VYUmWc1RUBHuB4Jwfh IeeOrnzwAqTGThKBZWPM2CGYjxujXwgDHkvIhrMC64 jJrpHF3KQf4IAzCeAH5skv0YzEJkQj8OWMYeXF4ZNBRaUKIoMDJuBVR7TZQuZyOzMPlfSEEkVAGpTUZ0 RGQcYLWaMR5HUaQnIAVuQyR2NmwlKJVbIQNpgi7YOXKoXKAwIGW6QFKwQXOoJWEcDVpwTIQhWLTtCSC3 WDHeKLGwKR0FZhJvABCpRWY7AFixUYUrHYFmdc8JOR ZkFIRyKtR9WsEnSGVqBTGpHYcwNVSgTEPcDwXlTLLmGLBkVF7QBqToVUObQCT2HMEcMOYnMENljf2TUP WnIUIxGni6NeHeSAJjCHQjWVqgHOPcAYZ0KAI4QXKiJVUyJZ5YGaCdWRKfGYHnOFCjVGFbFVNzna3EVH SpHHMtVBBhNNClPQVuELHaAAviWBByBMJ6DpofTEEp WHSsWM5YJqVzHCJoKRk4AYaaNOQzYSWgcz9VGAErMBMcBXEsZUGuXXOrDXAkBErsAUEjLPI3KCU4DRJm ZELwAZ3IKpIqAOQlQNi0FXZmREJtDRUewf8WCDWqDSOsVIShWaNkMNBrEDLhXEjtJIYnGUK1KxDkJACu EJDrMB5IVmDnJPAuYRy9PTZgLOCmVZDamc3DVJItZR KrBYepPuSuOIByVYXiGPmlUTRyOGOgCIHvVYLqWVIuOJ0RBwLxQVEiEzDgJWArPIToOEFmsl2CHYLsAY WiEvPoBiHzIUQrCWAaRWzlVXBlZLVvYoV6DSZxBAVmWZ2TWlYpHWIdPsR9VLCpIOUtYBMvsu9MSRBgTI JmZxl6HMHnNJKfDIPiNRahGDUcBQU8QsisRDHqNNMn YJ7WOwYlIYUpSyZ8KtToISGzKJVwup2TVZEaBDRlZSMrXNMhAUJqZDDbJId4qwGmcIFvBCw2LY4XZ7Dc xvOpOqQOFd5Em464XBPrNDYjCf0FG9yqVv8hCGBxLOIXJj2GYDb2OsR8IXZrQqOiVZJmVDuzOTP1BzJh N1M5XSpwMNw9XGB+OUykASpaY0P1JYLfILN2ZPYmGC KmWZUaGytsWtB4RFu6Cl1pSPAECl7+RClzqYKryUfvKGMPSpH9BTB0SQsmTMJVYq9A ID Date Data Source [id number] 10/11/2019 04:47:32 PM EDT [facility] Name Value Range Interpretation Code Description Data Dominga rce(s) Supporting Document(s) Anesthesia Procedure Notes [facility] EBHDDg9uAqHRTqDy41/IFTalMRYzj5VqOVipKIx2CCykRQYoB9ClWAB4aK6fSKV8EJfFPbUjGiPxHPX9 lbm [file] ICAgICAgICAgICAgICAgICAgICAgICAgICAgICAgIC AgICAgICAgICAgICAgICAgICAgICAgICAgICAgICAgICAgICAgICAgICAgICAgDQogICAgICAgICAgIC AgICAgICAgICAgICAgICAgICAgICAgICAgICAgICAgICAgICAgICAgICAgICAgICAgICAgICAgICAgIC AgICAgICAgICAgICAgICAgICAgICAgICAgICAgDQog ICAgICAgICAgICAgICAgICAgICAgICAgICAgICAgICAgICAgICAgICAgICAgICAgICAgICAgICAgICAg ICAgICAgICAgICAgICAgICAgICAgICAgICAgICAgICAgICAgICAgDQogICAgICAgICAgICAgICAgICAg ICAgICAgICAgICAgICAgICAgICAgICAgICAgICAgIC AgICAgICAgICAgICAgICAgICAgICAgICAgICAgICAgICAgICAgICAgICAgICAgICAgDQogICAgICAgIC AgICAgICAgICAgICAgICAgICAgICAgICAgICAgICAgICAgICAgICAgICAgICAgICAgICAgICAgICAgIC AgICAgICAgICAgICAgICAgICAgICAgICAgICAgICAg DQogICAgICAgICAgICAgICAgICAgICAgICAgICAgICAgICAgICAgICAgICAgICAgICAgICAgICAgICAg ICAgICAgICAgICAgICAgICAgICAgICAgICAgICAgICAgICAgICAgICAgDQogICAgICAgICAgICAgICAg ICAgICAgICAgICAgICAgICAgICAgICAgICAgICAgIC AgICAgICAgICAgICAgICAgICAgICAgICAgICAgICAgICAgICAgICAgICAgICAgICAgICAgDQogICAgIC AgICAgICAgICAgICAgICAgICAgICAgICAgICAgICAgICAgICAgICAgICAgICAgICAgICAgICAgICAgIC AgICAgICAgICAgICAgICAgICAgICAgICAgICAgICAg ICAgDQogICAgICAgICAgICAgICAgICAgICAgICAgICAgICAgICAgICAgICAgICAgICAgICAgICAgICAg ICAgICAgICAgICAgICAgICAgICAgICAgICAgICAgICAgICAgICAgICAgICAgDQogICAgICAgICAgICAg ICAgICAgICAgICAgICAgICAgICAgICAgICAgICAgIC GzGBOcQSCdKRXuYPYuMOHnQEBvLAThJNDgRTTaKAIpOQKfDVQkTXHkPBHgGYXfVVDrHFGkGLNhNAj9H3 rxJKHfJDQrSH9gZSj2Ad8+QUkEOtMiYHD5krIjmP7BTE6yy4CnNMkaLIXch0OtYHx6MY4AUQYrPZuoAH 7OUSrhgc9NKNZiBCEvpUGSx4whFgKpAWO9VGLpSjai SZ6FEEObO5ktbhTcATIdRPENCK9TEjQxU4QzlJ54SWCEEu1+AYifgvDkXqqRDlR8SCNul2JhPWo5AD0S JNBgLoxsh5UyKbMbHXOCTFkkZE9JUEA5KMI7RTFbCg5IFNJqS460hdHwWO9OHs9NVkVePK2ztr7HEuOo BEGoWglVNvw4ZEquKJ0YsQVsDKcJusGfwHisz1szWK Tpf8DtVIUpAXUBt2DquuBgkCTVMVmxj0FiWNzdprXrmJ3esC1gXMAXCo1HCWK5XGOxZM7yMFGkHHA9Ft G0FASQZA5GZEMlCSUevMQmHQMtLKIFIR3UBWvsWTX9SfzcruUkzCCxCGjyZW2YJCLxugHpBpJyPMUXEY o+Nb6VLA0qz3YjQQmoDuYrCP4qck4BXNqDOtOuY5V0 wDGmA2M4VOoyOy5UGATrKGAsSnWiJEQGGFljID7XZU7sopK8KC2GoYFyLSAbWWMerKXlUPv1F24suVWs BLonSN3LPRD+Lily+Xq1NWRJsMLMqCXXvDhNcYOFHAxGxT4EkW2KBg3LxV6WzJV23rTrjxcFaFXqcDL7U LJ9tAZMySRXUPR2CcEXidR2owxAoXXPzFSIUHfDjS8 6vmYYtSPEoSRF7HKKoFi5LIELlK5VesjVzrBvobsAhVYWeASJSIZ4FHGurwtNleRMzgQhfVV82kGopQL 7LEl6MHeDkGX9olf6HjKBlKd8BULEsFA8PSXQmOGWcAKYcHJV4YYCsUyJrQDtzVKQpRUHpNLB1BSFlUX BeZT8OLtBmGIXrNtE8RlobZFTlOSVucr3TBIVyETZy TsR1TQBpOCTsYOVcXFtvOWVcHTVeORP0FSBpNWXwRS2SFdOjUBSwLOO1HUwhGYUzQNFqcp5UQSXsSNQm Kci3YcCoYCPiSCZjHVguMPLxEYRbTIXfACIwJJSjAJ5RIjIeNAEzULNxKCCoTDWbXYDnso9ENDEjWKGr ILM7GvAyXMQbPSRfMNtjCLUhBEH2SzL7ECPgGEFhFI 1JRnLzYZMzOBN4XBPkRSXtDRJbfx3PTZMgYWClFERiPQLbPDWzLJXsVTvtSVMmIVE5HVd2FQTaJZBsXR 0GWsXsEYHeYBigOUNyFUTzCVGbsi3YRPJlPKBkHDOhQFOfLCFpOALzWYsgRELoACD2FbW6OCDiQAFvWI 3OYxXhWKHiOIe7JOIoKSZhIAYsbj5AULNwBJYnRSbu LCEpAZOlEBAeMFzrMHSaSVGfXTK8CBVsECGdDE1PDpObITZaRhGwOVciNIPnUFUgyd3INSHxSEAvVCI7 DPIrXFGiRTXgADckPWGwOJPmXeA5HBDoYGEeDY1DXyTbEWWbNgA7HQvmXNUtPCOcwd4KQYPhSNJmBZbp UPLzGWQfMARxDOswLOUqGBWpLuy8NFIsSGEzFT8WAd TnZXNeLyT4VXlwBUDuYJGmjf4WTXMlJWRvZqCuGYMnNJCbQCFfBSy2ncVhlPCcDGp6BQ2EF0BvpgUtFp dQPx8Ev097BAC2XPXpFm8KF4kwSn8nBDWsTOOJOk5EUMe0EIAfXbbwJMfsU9OhZNQ7FEIbKVK6UzAfYQ d9DmQ1BUA+IDxhMmEyNzFlNzEzYjJhYTkwMGUxZjkz NbAoDicoGtU4Ze7pFMQYRc9+GPlwsHXeoTwaFAQDGqTaKZM6SJpwGFRNVh4M ID Date Data Source [id number] 10/11/2019 04:39:12 PM EDT [facility] Name Value Range Interpretation Code Description Data Dominga rce(s) Supporting Document(s) Nursing Note [facility] XPCUVp3kJyQOBtOs46/CMXpeTVKlx8LfUZosIGi6YIvrWRGcP2DtMNU2wC2pNUB1WRyQRyIiFhOoXDB7 lbm [file] LpwiEUSlRHZsCTV5YGZ7WPF+PS2xPTa+Ad2Vh5RsfjW5ypCmEUrsUFT7Hq7JVOWJI2PYWi== ID Date Data Source [id number] 10/11/2019 03:46:59 PM EDT [facility] Name Value Range Interpretation Code Description Data Dominga rce(s) Supporting Document(s) Nursing Note [facility] BBXTLa7nZkEJFeYn02/IXRjkMGQlf1TnTDlrKWs6JLndRMLzH0VvSZL2dS5fIOI1LUkCXyHuKzHpVXK6 lbm [file] AgICAgICAgICAgICAgICAgICAgICAgICAgICAgICAg ICAgICAgICAgICAgICAgICAgICAgICAgICAgICAgICAgICAgICAgICANCiAgICAgICAgICAgICAgICAg ICAgICAgICAgICAgICAgICAgICAgICAgICAgICAgICAgICAgICAgICAgICAgICAgICAgICAgICAgICAg ICAgICAgICAgICAgICAgICAgICAgICANCiAgICAgIC AgICAgICAgICAgICAgICAgICAgICAgICAgICAgICAgICAgICAgICAgICAgICAgICAgICAgICAgICAgIC AgICAgICAgICAgICAgICAgICAgICAgICAgICAgICAgICANCiAgICAgICAgICAgICAgICAgICAgICAgIC AgICAgICAgICAgICAgICAgICAgICAgICAgICAgICAg ICAgICAgICAgICAgICAgICAgICAgICAgICAgICAgICAgICAgICAgICAgICANCiAgICAgICAgICAgICAg ICAgICAgICAgICAgICAgICAgICAgICAgICAgICAgICAgICAgICAgICAgICAgICAgICAgICAgICAgICAg ICAgICAgICAgICAgICAgICAgICAgICAgICANCiAgIC AgICAgICAgICAgICAgICAgICAgICAgICAgICAgICAgICAgICAgICAgICAgICAgICAgICAgICAgICAgIC AgICAgICAgICAgICAgICAgICAgICAgICAgICAgICAgICAgICANCiAgICAgICAgICAgICAgICAgICAgIC AgICAgICAgICAgICAgICAgICAgICAgICAgICAgICAg ICAgICAgICAgICAgICAgICAgICAgICAgICAgICAgICAgICAgICAgICAgICAgICANCiAgICAgICAgICAg ICAgICAgICAgICAgICAgICAgICAgICAgICAgICAgICAgICAgICAgICAgICAgICAgICAgICAgICAgICAg ICAgICAgICAgICAgICAgICAgICAgICAgICAgICANCi AgICAgICAgICAgICAgICAgICAgICAgICAgICAgICAgICAgICAgICAgICAgICAgICAgICAgICAgICAgIC AgICAgICAgICAgICAgICAgICAgICAgICAgICAgICAgICAgICAgICANCiAgICAgICAgICAgICAgICAgIC AgICAgICAgICAgICAgICAgICAgICAgICAgICAgICAg ICAgICAgICAgICAgICAgICAgICAgICAgICAgICAgICAgICAgICAgICAgICAgICAgICANCjw/eJGoI3fs zNGjscZ8O6geNf5EFx6JCW4le3AmFOWdAYbnzyYjKjoDXkSfVLFvUnyHOlb1XHdlXM8BxWPyM7EyS1Vh KVitUE1MTOHrMQSdsKWpPGUgGQEmYxV1HXLyHOjgWW 4FtJKyBSutBNZyNJYhEW5HMVGiH560ybSjUC6LHa0GDfKyIA2eax4ZFqIqJYYcXbnLPjm8LYrvYV5RnZ OqxRUvOeKpCMFHCiTqT7gkj8LnIvKaFWOIDHzkBR1Cu7UwuSQnZSi+Tt2THC1sb7HgUXzfZfAjYF1ukl 5KFScMBdLeG2ZrjSamTC34diUoriumWw59PYWyuNKP CP3rqIPBp133BCzkRTLJSJN2SFPlXA5dPODrGPLmSqD1PCONLR9ZBFYvNHAjdHZrYGIgJXYZCH6SUYsj FUD3ZboasuBnxJNwWGqmVI7YJDAodyMnIrTcCTZNPBs+Ww3RUI2sy1VhWHycLOMzGR6gmb4FPKmUSnMs X5H8fIOeR0H5ZDynMk6SMMNoSJDeNdGfFYKWMQynAW 6GNB2qluF9BV6DdKGnFYYaEXSftWKxIXa2H08wtRNpIXvoIZ3EOBU+Lily+Hf1PWWIkFOBgXZXiAnEiGA ZVRwQbN6PdC3AEx2YaB0HgAB12zSvsxoXgKEelLO2TZS7wCSFoURXUOT3HtABvkT0bjmOpKxJfDCHHUa YrG15cjGUrIBYaNJXtAEAnTi8SLUDmK8NkzjYntBbq zjUnTTWlMDYBHR1LMXzkcdRqgWEmlEmfBG87pBisHV3KWc5SMhYsDF9xtq9YuVTzYx4IHONaHZ8ZCWAk HDMwMRPlLLX6BLFjNqFvJKivTLWjHYRfKCS2KMErLGDqUE4ZRxWyVMAnKKzoSNivIDKxQRSocy6ZFYGk OWXaDEF5RmHxDWEtWPQeHPzmNBFxEVDgCWK2GJCkBU LgML9PYvIaHFImYHB0OMCsPOVnOUIupw5DSYKaWDTtVNW7KLSxPZWxXZMaHGznTXZeBNXiWZSwJIYvDY FuYL3FNkInHLZhRYLtJLEoGKZuGFPmug2MEKMgVNJqWhStZGWbJSXhWEHoDIvvYHLaHOVhFvg9SRKwDD DuTJ5IVfRuLYVvMTU9JGPiFRDaZQTcpd8BJQJoRGEi Zbk4UgKcLEEbRQIuFJvoDRWoWDA7ZZN7GQTqWLXzEG7ZHpPwAARlHFJ7MFZhTVJsVVPqun8NWUQbLMYs ZeQ4KDSuVOUpVLGxHUccPVMvADW2ROwpJYFiKJKlZR7ZHqJfEFTlHAkpUlRjEOBlWPLbvp0ZEJWgTHUx Woc9CJShQPLiZRPlCZxhYDNlSXY0YGBzYMVdFJSnIB 0LKsViEQUlGIhgJtNmXGFxASEbus1XKCJbHZInYHt5UkRzKSYtGIVmQOdaPWIhFBQmJThmTKTdXSJgKE 0RFbQkMWStGqYvHbFzVMWaYTAiqp1HFFFeCFAoFHSzLYLvVHUyTIAdWXd3kdLzzVKpXKv2UV1VX4Lqjj LkNrRWDw5Nn622LQX4CCBtNh9BI9znGq9kZKEdUNDD Ms6DVNt2IQrqDKw0YMJwGEB9QCHlM4KxStYkI4J7CWD8GsB5TwP+PYfdSBJ9QOE4ERTzVfDpR1RqJgPf MlLxADq1Jqj5CEupOE1bRAFIJw8+YTjnqRBphTrmTSDDQvVpHtZ1FJrpJDRPLq4Q ID Date Data Source [id number] 10/11/2019 03:36:43 PM EDT [facility] Name Value Range Interpretation Code Description Data Dominga rce(s) Supporting Document(s) Anesthesia Preprocedure Evaluation [facility] WYNDYc5wXcVWViEl82/RSJspSHNjn6CvXVaaOZw9EMrcTUTdG8XrKZF6oO3dPDL9KXrXBzYnZrByXTQ3 lbm [file] XSANCj4+LCskiBPgvRklCTEIQcO3YSOrFXsvWIQGZi4S ID Date Data Source [id number] 10/11/2019 02:00:47 PM EDT [facility] Name Value Range Interpretation Code Description Data Dominga rce(s) Supporting Document(s) Progress Notes [facility] EKDRNe8sDnJNItEv47/NXAgcLULch7TnBMqcMPr9ROcvSHJhY2SbSZR1qL7vJKO9SSjJAyTtNzHmIPB2 lbm [file] AgICAgICAgICAgICAgICAgICAgICAgICAgICAgICAgICAgICAgICAgICAgICAgICAgICAgICAgICAgIC IfWRBxACGyMYTtFKGbZHDkZA0IHYEhLOQvBSBiNJRiBONkEZAzETBzSGGaZOJxAFJtDFVoGLOfNOUsVQ AgICAgICAgICAgICAgICAgICAgICAgICAgICAgICAg ZVUwQVZrSKEpXJMpWWYmNLMlKFJaJJWpCGQbSP6ZUXHmLTZyFHJeLWKqARLxUNLxYIKrLSJnEQZaGMXq ICAgICAgICAgICAgICAgICAgICAgICAgICAgICAgICAgICAgICAgICAgICAgICAgICAgICAgICAgICAg GLQlXFWgFGRwMB3UFLVpSQHeOEPrAGKdECBzBDJoDC AgICAgICAgICAgICAgICAgICAgICAgICAgICAgICAgICAgICAgICAgICAgICAgICAgICAgICAgICAgIC LmVSNyFDVdKWSpJGUqKINjMFXqSY8RSSZhLHYzANXeCUZhADBwLSQbEVOzAKPkJQNtPMLuGEMuTHIoGF AgICAgICAgICAgICAgICAgICAgICAgICAgICAgICAg KMCwRZSmCTIfXDQvSPWgHZUsMUOgVRRyYKOvLELmWG0UDGIeTSRmZTSwKPPpOOElQSHyXTVvIYHiJXDy ICAgICAgICAgICAgICAgICAgICAgICAgICAgICAgICAgICAgICAgICAgICAgICAgICAgICAgICAgICAg KNPkYNZdPWUcATQrPB3ZKRCcSSYpWEGoRIUgQNBwMT AgICAgICAgICAgICAgICAgICAgICAgICAgICAgICAgICAgICAgICAgICAgICAgICAgICAgICAgICAgIC ZpTJQpNUEuOYXkIJIkYKYwGJYpXGDiGF9PSGJzBOWcJKLbVBSeCXNbWTSmSROxHVSmRHHjVJGgRPBbLN AgICAgICAgICAgICAgICAgICAgICAgICAgICAgICAg HPFyVOYtSBVwYHFiXFNiWUObJUMxSIVcCROqAFRmHPBsKO2SUBFfPAPzCYUlGUZrXXMxDFTqNUQpBTWz ICAgICAgICAgICAgICAgICAgICAgICAgICAgICAgICAgICAgICAgICAgICAgICAgICAgICAgICAgICAg ZCXsYIIlBEXfDHIaLVQyKB7CXKNhMCShOGZjJZVqRZ AgICAgICAgICAgICAgICAgICAgICAgICAgICAgICAgICAgICAgICAgICAgICAgICAgICAgICAgICAgIC EeZMMnHPBnVEUcJABlIOEzKFNeFNWwXNFwXC4PJJ58rEIns9G7XHDhSV5kegp/Sq5ZJOqzfdAdmZXzFY 5QGeYjBK1blx8ZBjBqOM8vte2YLLeYEoMeN7B9qIEt XWDjPJETLwPlH16kJCocGy74VXixYJRmTsTsSCp2Qy7LMoUuV0miPGNdUcZ0UODtEdLyUTgoRT3Qk4Dh dCAxDQo+Ib6CMT2pl9ZcMJjnVLOpLJ7lyh3PSUaVIsDhD2JfytN8ZYD5XVBkVy3BTWVdIBUqhNCwBGIk EROUQcOpM0DkaV18ZYSYCr5+OTfjtfFfDwpLHgW5JQ Nuy7MeODc5XQ7BYSCnJOi0xPZtHKGuH7Rkt8KgLq62AHApUlvfGkQuFJ7qIoDlhYwkfP5nETqbRUFugu 6yXA5SRKO4BFFbXS2jSJAoFKGzCkM0NSUUHP6SXJKeFMTtcEArUDYqYDISKY7JKFkiEMB8LqzfqoMknA JrNRsxAP5QJDMnfkZsQybcIGWXDTn+At8SRN3he4Zf EGpcVRKzSN1rqi9QAStUQmWoU8H8vSBhJ9Q1UUmzHk7LGORmHGNzZjWzXSHYZUqaHZ3QIO9ivkO9WP0D vRDcWBRtKZHcnGAyADe5Y73hrVCgIGycAA5HRQJ+Lily+Nt2UFKNjLPWpNFCiLlAnLYQLDgWbD5BrL3UC r7FkL7ZvCB72fOyxdnVwFXpwAN9MAV7eUFAnEZMPIP 6OyKOxfD2xttPcUMJbTNPHWiEvB92myLPvKAVxCKI6QWIqZb7GEUKrP4YfrzOqvHdketJbQDKgPUBPKO 0MOVytsiWdrHNetPvyAS94tJamGY3QVr8IWzObOB0plf9QdHYyOw0BXGSxXE6RTFNzQFAwYHEgOTY3NV CuIlFrADwjDPHtBBIkLSN8QNCfOCWzBV9BOqAeSQBk VgU5FACtEYUpKFIqoa7FVANlBVMoEHEpMXHoBYFyUOTiENmqBOTeKZVwKSK4PFSmMNHrAA0XTnYpBMIg XPVtVvTnDSPlWSIrcw8MXCQjMBAzQeD2WvWzVIGuZGEzIMlrXTWgIHPwUBW1DPPsDFReMC6UMaIzSERr TLK3RfZqCUDxFSJfae8ZMMGsCIGgPcxoWBZhIQGpJC HwZCwyMERwGAD9RSwxTQLnHSVnYO1ZUlBjURZsLMGqIsbgLUDzJLTvwi3QFXQzAMDyWYP1MIVqYNIiEF UxHSnyQCWvAQL5NqG8WSJvFDFuDM2FFbGnTAMgQZh3RbTaQULbHVZaej0CYXSvIVQmOHAxZhUuOPIxWC UlEOuuEIYcPKG1BgseDBRdDQHqPP1ARlQmHXOoPXd0 CSkjNCFaAVUgjg2FZGLwJWWjTWR2HAKjGZIsXXPsZCcwEELxAUK1XiG4JEOgJVRnCJ4CLtDuLUIdHBk3 BWrvOEJaBWSfar8NIVTuNWEvMVp1IRRgXWFfZLZcPZzyQKLiJFJwSRT9LKMdBKFlLD6FAmZwJWSiMxWy ZEjuOCZoZCBpfs9ACOWaORBaQmQ3JbDeSBXiZWJrYC grFSUkQPKiGqLrESCyAXVaAG6QMqVcMWKgDkW5YlKvXKSoIRXmwi9DRYQnIIGfBnd4RJOuSCKbCBKdTL wzKTGjGML1ObS1GZXeVVIrFQ8YAiQtGSBiSmLmVTvlBDStOZZhlo1TBMVmXUYrIXZ2UKVhQPVhQTHiLW p3fhBqnSQtZNs3QH0UQ1GzxaMnMvMRBj9Tx161KGXh GBJbSt2BJ0wbIh9xXYAeKAOYLv0UNFi3HBZsBsR8TGBiHJkbOQuyHvXuDMClQQXxEWLqZ5FzIEW+IDww OvO4OkksFGZxUNIpSJWoKxGhArT9FvSdZgPiUJT3PW8mCOQDMb0+FWeycEDxtCotEJPDZdF4Vhq7EMfz NNOTJq9O ID Date Data Source [id number] 10/11/2019 01:55:32 PM EDT [facility] Name Value Range Interpretation Code Description Data Dominga rce(s) Supporting Document(s) Nursing Note [facility] JMZTPw7wCeTUIwLx77/DYCnsZRYqz6LeIKjgAVy9MCmfHPNcU3BkEYM2eL7eAGD7DElNKcEgGaLhMMH8 lbm [file] AZJ7FXb5RiAwHBm8HJo1TrWdEN1BTw9POvQ2TQT8oEIjXz2EIhK4BOIKDiEfOF9JPHy= ID Date Data Source [id number] 10/11/2019 12:00:52 PM EDT [facility] Name Value Range Interpretation Code Description Data Dominga rce(s) Supporting Document(s) Nursing Note [facility] TDPDOj8gHoQKQfTn50/XYDooKNSxa5VxVFmxWKq8GCbwCSDrT8RaKSI3oW0hSTS2XUsSQbAfVeCqMNG1 lbm [file] ICAgICAgICAgICAgICAgICAgICAgICAgICAgICAgICAgICAgICAgICAgICAgICAgICAgICAgICAgICAg ICAgICAgDQogICAgICAgICAgICAgICAgICAgICAgIC AgICAgICAgICAgICAgICAgICAgICAgICAgICAgICAgICAgICAgICAgICAgICAgICAgICAgICAgICAgIC AgICAgICAgICAgICAgICAgDQogICAgICAgICAgICAgICAgICAgICAgICAgICAgICAgICAgICAgICAgIC AgICAgICAgICAgICAgICAgICAgICAgICAgICAgICAg ICAgICAgICAgICAgICAgICAgICAgICAgICAgDQogICAgICAgICAgICAgICAgICAgICAgICAgICAgICAg ICAgICAgICAgICAgICAgICAgICAgICAgICAgICAgICAgICAgICAgICAgICAgICAgICAgICAgICAgICAg ICAgICAgICAgDQogICAgICAgICAgICAgICAgICAgIC AgICAgICAgICAgICAgICAgICAgICAgICAgICAgICAgICAgICAgICAgICAgICAgICAgICAgICAgICAgIC AgICAgICAgICAgICAgICAgICAgDQogICAgICAgICAgICAgICAgICAgICAgICAgICAgICAgICAgICAgIC AgICAgICAgICAgICAgICAgICAgICAgICAgICAgICAg ICAgICAgICAgICAgICAgICAgICAgICAgICAgICAgDQogICAgICAgICAgICAgICAgICAgICAgICAgICAg ICAgICAgICAgICAgICAgICAgICAgICAgICAgICAgICAgICAgICAgICAgICAgICAgICAgICAgICAgICAg ICAgICAgICAgICAgDQogICAgICAgICAgICAgICAgIC AgICAgICAgICAgICAgICAgICAgICAgICAgICAgICAgICAgICAgICAgICAgICAgICAgICAgICAgICAgIC AgICAgICAgICAgICAgICAgICAgICAgDQogICAgICAgICAgICAgICAgICAgICAgICAgICAgICAgICAgIC AgICAgICAgICAgICAgICAgICAgICAgICAgICAgICAg ICAgICAgICAgICAgICAgICAgICAgICAgICAgICAgICAgDQogICAgICAgICAgICAgICAgICAgICAgICAg ICAgICAgICAgICAgICAgICAgICAgICAgICAgICAgICAgICAgICAgICAgICAgICAgICAgICAgICAgICAg ACVdBHAdNBWkZSVjKQYzPMn8A3uiIXJbKDRkVO6iOR d3Jz8+INoNLiHgEAE1tmOeuI1KUG6yn8MpQIduOGMdh3FqKUt5XY9SNJMxGIzzFD3LVFkjcj9RJBDrPH FxmCUVn5bhCkBrYQL5HJRpCvvwHH0EGGZoW8egwrCnNNTyCGTAKM7TTjViQ3QnoI70GMTYDn3+DQplbm DiLgtIGrFyVVVoq7YoJXy3SU2QICFxJsecb8AyJeQe HOZUAYicBF3IAHC5IOUoYNVpLz1QMEZrJ701bjFrOG8YSm6CKpBjRA5luc0TBvZwCRMdFyaKFrb7JZmp FY3LjGErSMuKjNOpjD0iNA0wwGRhBekwEjTnL8fvY05xi8W5KNRFPdUvuBP3PgogEhIlJVIwLOogTWUI EPaBToWaP9Pji6QhOlF0SXFpSoQgUIxhHCDxDqU9UF 88iQdsXE2UUGAuUUZdEL85NXDvAPOkMo0KWt0UAgRfBS1hph5ZGoApJHJkObqFSjl0SWchLS9WmDLhA9 GozICzz2kHVaYyR1OHOIQeLAXnBi0EBBXvKiBeEPVfJGccPT7uKDCvQHHLaPxzerO3YB3OVB8eykDzSD 3NScYlDg7tNs5DNjVrV9ApD3WcFCWiLWFSXKgzQT1Q HMrnUG6nLO3Vy8YOyZXhuS8ahh3MMUJgOOIjUyjptl3LYfzwF0R8jEiqPNSmGdTvGSCLYBzzCO2KRSXa ETD2FCVyZIAlBDLKUeLhE73aNU4WS2Wzs34lLmJ0ZWKySiCiLCxkJY08aLaucvJjyBPogYmrYP9CKw9+ DQplbmRvYmoNCnhyZWYNCjAgMjUNCjAwMDAwMDAwMD NsQiU6YyNfVq8MXAOqEUTfWLSoYwJpNFSuJPDcIIqpGKHcZSA3WJDkQCRtUYDdLX0KYuEaSQTzJwIiBv htYTChHJPihf0HGLBbIIOsEPC3IcAgGKBzQYYjPVkgEYDxQQEoTRr4BLNeEQOwQU6PQnDrUUBsUEIlRt zsVJJqXRMnwk0CWSGaOENoVnEcLwLgDPOjTOQmVElw PZWoWBNjFhX3OFLoEOAfTI9UHqPhHIHfXBA7MmAsFJQcJPSdrz1VDLXjUFRiEbH2HqBpCKNiSRIrZNgu JDQdCSLwOuy4QZOcKZSwLR0HGdRfSRUcNBO3YgQgHIDpLEFfdt7VWJVpCRFhCpCyRQKzRQQwCIMqPMck AKPuUIS0KTY9FBPyWLXfCT0MVgGzCDIrEFF8GcJsGM NaSOFdbu1SBYSlYVVxYhi7MUNdMMUkSTYfCHtoSUUgQFK1DZUjBFAiEAPoEI2CRjXeFLBdDYwkAmYmVI ItPRTstv5BQGJvUVAgFRN7IVOvSRRpDXPsDZuaZQEcBLJ7EMZlFQIrJQYjYL1BPcZmVRHtLUg5GzcdFW AaBXBmzd1MOESmZHPpIRU0HDWhBCHfVNVfEXbgQOIa JKTwYhQ6GWRsNHWuVQ5KMpVmUXJtHaS8WCArGRKjYKKewc3PgQIslBpyoj7MCMuUIp1HtUteUPE4HVhp Hq4whKTaXMMqYRYZEt5KubKrMDDeWTYRJIjlDDWqNJYbFQVdAOCwQIAwJfA3FXKzIYA6MMHgSHnoBpdp YiCwDwX1WoZlRVHpGTZgWULzFtC1VAGtOhp0LDEjZv JhCKK8YcM+AW8tGXf+Qp9Vs3HuzeM6atUxOHmoQGylVC6BJGJOY9WMGu== ID Date Data Source [id number] 10/11/2019 10:22:10 AM EDT [facility] Name Value Range Interpretation Code Description Data Dominga rce(s) Supporting Document(s) Nursing Note [facility] KRTTIv8sMzVOZtTc66/ESNicGVMal4NgIVkiCUx3LCssXYQfP6KeSML0oO1qBGP7NDgTXqQxPqSoRAD6 lbm [file] 8ugkw6R+VtQKaq25P/ZBpJYSkDYLa3HiFRKeVa/[place] [file] OzZ0NpEiDmRuP6BIJsKeNePJHnOUShZkPhWN5LXv3ZRyN5OUE8nURpOj2MJqY3BWAQQtXjNN0BFPg= ID Date Data Source [id number] 10/11/2019 10:10:25 AM EDT [facility] Name Value Range Interpretation Code Description Data Dominga rce(s) Supporting Document(s) Progress Notes [facility] SJQSWm5jBqPNNxVt23/KEGlwZYZsv7WePAsjJDm0YCrbPPCuR9XhEXZ1hO8bLRX9KGaNVaXpYrWjYEJ5 lbm [file] L6Ekl2XDLzVJR0ZXb9SFK+OP2eSSr+Rf5Nd9QynlD5hnNlRCeaXDasZQ9XOORXC1NTYp== ID Date Data Source [id number] 10/11/2019 07:58:02 AM EDT [facility] Name Value Range Interpretation Code Description Data Dominga rce(s) Supporting Document(s) Progress Notes [facility] BLOCBo2sBhPTGvCo38/SIJsuXOFup4XzVCetJIs1BLqvTCXtE1BxAQT0lR6tEVN4GQoJGjUvWiKjIJA6 lbm [file] I3TsUYY2NTPqPjzgRPB8QNQ0HJT0ZW5oKKUHWl5+LFqcvGPtdFvwSVACWmEoJji2YJqkGNDPRy7C ID Date Data Source [id number] 10/10/2019 07:13:44 PM EDT [facility] Name Value Range Interpretation Code Description Data Dominga rce(s) Supporting Document(s) Care Plan [facility] VSZLUr6tFrIEAoYp64/UEDkoZSUxl0BjTMzaMOq6SSkfQSSnO3KjGPR2kZ4lKWW8FCsSZjUwBiZjTHH3 lbm [file] 4+SIgxoTUeuWlvORHTFlR3ThM5ZMfuUJFBDz8U ID Date Data Source [id number] 10/10/2019 06:32:57 PM EDT [facility] Name Value Range Interpretation Code Description Data Dominga rce(s) Supporting Document(s) Nursing Note [facility] YWXKYw7qSlLMVoZi16/XWYdrDYVxp2UoWQneNXy5TFctRTUaS2QcERB4vN2tDRE4YRcRBaVlLyQpYXT1 lbm [file] KQH1uNHeZv4JPoQ1JAGKVqVvUS3MUQx= ID Date Data Source [id number] 10/10/2019 06:10:14 PM EDT [facility] Name Value Range Interpretation Code Description Data Dominga rce(s) Supporting Document(s) Nursing Note [facility] IHDFVq6cReNRLyGt41/GUSmiQATlo9JjMMtuYXb8JCtmQMDrE6ErTME4gC0pLRU2QArQNpGzAcBaPZX0 lbm [file] 0gDQo+Yr8Pn0UughZ4noDrWXnuRHx9CX6QFNLVW4GJOq== ID Date Data Source [id number] 10/10/2019 03:09:29 PM EDT [facility] Name Value Range Interpretation Code Description Data Dominga rce(s) Supporting Document(s) Care Plan [facility] HCKAYg6vZtNMJkCx18/WUGitTLMmi3RaILbkNYn9TVpmBQPeN8GvCGB1iZ2iIUE8UIrCEvWxZmNjSSU3 lbm [file] AgICAgICAgICAgICAgICAgICAgICAgICAgICAgICAgICAgICAgICAgICAgICAgICAgICAgICAgICAgIC AgICAgICAgICAgICAgICAgICAgICAgICAgICAgDQog ICAgICAgICAgICAgICAgICAgICAgICAgICAgICAgICAgICAgICAgICAgICAgICAgICAgICAgICAgICAg ICAgICAgICAgICAgICAgICAgICAgICAgICAgICAgICAgICAgICAgDQogICAgICAgICAgICAgICAgICAg ICAgICAgICAgICAgICAgICAgICAgICAgICAgICAgIC AgICAgICAgICAgICAgICAgICAgICAgICAgICAgICAgICAgICAgICAgICAgICAgICAgDQogICAgICAgIC AgICAgICAgICAgICAgICAgICAgICAgICAgICAgICAgICAgICAgICAgICAgICAgICAgICAgICAgICAgIC AgICAgICAgICAgICAgICAgICAgICAgICAgICAgICAg DQogICAgICAgICAgICAgICAgICAgICAgICAgICAgICAgICAgICAgICAgICAgICAgICAgICAgICAgICAg ICAgICAgICAgICAgICAgICAgICAgICAgICAgICAgICAgICAgICAgICAgDQogICAgICAgICAgICAgICAg ICAgICAgICAgICAgICAgICAgICAgICAgICAgICAgIC AgICAgICAgICAgICAgICAgICAgICAgICAgICAgICAgICAgICAgICAgICAgICAgICAgICAgDQogICAgIC AgICAgICAgICAgICAgICAgICAgICAgICAgICAgICAgICAgICAgICAgICAgICAgICAgICAgICAgICAgIC AgICAgICAgICAgICAgICAgICAgICAgICAgICAgICAg ICAgDQogICAgICAgICAgICAgICAgICAgICAgICAgICAgICAgICAgICAgICAgICAgICAgICAgICAgICAg ICAgICAgICAgICAgICAgICAgICAgICAgICAgICAgICAgICAgICAgICAgICAgDQogICAgICAgICAgICAg ICAgICAgICAgICAgICAgICAgICAgICAgICAgICAgIC AgICAgICAgICAgICAgICAgICAgICAgICAgICAgICAgICAgICAgICAgICAgICAgICAgICAgICAgDQogIC AgICAgICAgICAgICAgICAgICAgICAgICAgICAgICAgICAgICAgICAgICAgICAgICAgICAgICAgICAgIC AgICAgICAgICAgICAgICAgICAgICAgICAgICAgICAg ZLNkRFHjNLg3V2orLUGiZWXfUQ9yOJs4Ls2+EIfJTlVtQUK9siThnD1RKX9fa5FiWLffATSrp8GlCOu2 HG3BUGBfIZjjQO7DDDdvsa0ZPWIcBOUwpJPMz6wkGbJjNLF3FQUeFlcaTG5UAWPrT7ynmkXmZVWjYDJC KF5UEvFqZ2MdpJ61VMOGXq7+AUnhtoZrOfwWLhD7YV Hwn8TtZJi4YN8BCHPfVghyj2WjGsWuWEPWYNsoIH0NAXQ2NOK8GIHnHe2IWTNkY134obGxQO7WRe7BSx QyHF6jwv6QXeAhXCGcSxpLUbd4TCrhIR5AdEBxVJcYHIVpFCRsFV5sUvlbV0fapFO5gYIFhQJ1dNZfRX UPUTD4YZUlXQ8xOGYhNULxXjJ2NKJKRX7XXCHpFGPb fBTqUSLoJLDYLI5OAFxmGQQ3XmhwpiKynSTgDKbmKG3GBWYqugTtWnGeKTYMYHo+Wo0AYO4yi3ZhMGid QpUdHY8jcg6JARoZHqYpS3N0aVKpI6H2HPtuJb4RRZKbHTStPgXsDNELQFgpGR1JWM6bczQ6LW8FkNNm ZJObHVKuwSHhINn2D79eqTLgWDfmLN7YTVB+Lily+Pg 4QERChHAZpTPKjTnKqYHPEDuFbW2IoZ5LXu1NlF6UyNV89iYfgnfIxMZjmJI1PWK7vFWRzRBNTLV6PcM InlY0boxAcGIRpDPVMCsWqI81unFIzYGRcDMD3LCEkFr3TORKsF7UeqkThnJmohsEwJKVvEYHQPK2QUQ msjsRlrTFzsTcmQM75fLdyUG3DIk3DVeJmEP6fhh6Z dOOdHi4ADMTnTQ5GMBLtLMXrBVMiEIA6IATlDaBbSNguOPWpRYTtNRN4OCGaDTEsXO2JGjOfSCFtGkMp QmRkIIOvPKFvrk5OCJTaLPCiEqg3GYMpQWFoZIPdKKguZDDjGQWqCAG1ATWyAXZeNM3TUcMrKWEjCNQb ThIaYFXlLCUoij0MPRYkYBIgVdIpXJKlORKlSHLdLB egAIPsOJPpHmiiWFQkRTImLD8LZtPxPPEiWJA4FZVzAFQxEDOxdv2XZUHhBVKlEpo1TYNmACVwVQQuVR efEUJvDYT8SaU8OTCaEGBuBT5IJmTyOCKuEKZ1SdEtEWRdVCRmax1SPVTlWBHwHNPvWoUwRSQbRCJhGC qiGRZrSWY5DOF0DUVfOTYlAA8BRhUgHERhYSe6LETa GBJyGRYmeu6GDNZbLIXePxt9RPNrEOMlNSHePEojPMUaGJN2HpZiSLHaXIGpRH2XMqUmAKNkWVgpXzfd GUAuOUOpro9QPSNiCGRhLEIpAPIkYHMaPZJhWXjcWDJkKTH2YEM0TJFnJFZsJB2ZNlXsJXHxCNz7JOEw YCFqZNJlhy7SDERnSUTpKBG7NKGeZTToBJRfUAivVL FnEVWjXYGrRRLvDNKkMT5NEvOoDMHyBkTbNFGhDMFnWFTcmd8DAJZpSDScAYPbJKYdMHKmPPYrZLzzWN RtIUCiBFvzAGOpWFPdYE6JZqCnPIUjToU7FHHaKSKfLHEmgp5OODGvQRJnQeD1ToIfEKWeSXEjPXh4me ItkDUrYFf1HU6QE6MabdGyGsfTFq1Rk516AQI0VDJh Lp9NH8izGl9oOWNmEAMBTo8WLIq0CmI9HpH1QbX6T2CbTxL8PQJwOqp1JgcjAme7AGUoLxW+CUv9IMFp TPugAEz2McApZIa0R9SbWrwkUYOfNVQ1SlE8Us0sASBQMx6+DQpzdGFydHhyZWYNCjIzMzMxDQolJUVP Rg0K ID Date Data Source [id number] 10/10/2019 12:32:18 PM EDT [facility] Name Value Range Interpretation Code Description Data Dominga rce(s) Supporting Document(s) H&P [facility] HNIXDy0oDsMLRqHh63/NVDfcYXHng0DgJJirIFk2TXlsSAEpA5PxFNE0iL7mUYU4CUpEGqNrDhLzOXL9 lbm [file] AVENDAÑO+dkPLQGoLa2JRdKOCCov4/NAB6EXsRMVcIslQiy2oDrTogxnyaciJNHxPHwv9w5q0JSlTLBU6jKs/ [file] Rodríguez+hgvyMtJb+VljqshdJW5e+F/oaZAa50I1VB/6d2C4aA2vT4lRZ1S/nRUH++tKPn9/xegVhbNEbza [file] ICAgICAgICAgICAgICAgICAgICAgICAgICAgICAgIC AgICAgICAgICAgICAgICAgICAgICAgICANCiAgICAgICAgICAgICAgICAgICAgICAgICAgICAgICAgIC AgICAgICAgICAgICAgICAgICAgICAgICAgICAgICAgICAgICAgICAgICAgICAgICAgICAgICAgICAgIC AgICAgICANCiAgICAgICAgICAgICAgICAgICAgICAg ICAgICAgICAgICAgICAgICAgICAgICAgICAgICAgICAgICAgICAgICAgICAgICAgICAgICAgICAgICAg ICAgICAgICAgICAgICAgICANCiAgICAgICAgICAgICAgICAgICAgICAgICAgICAgICAgICAgICAgICAg ICAgICAgICAgICAgICAgICAgICAgICAgICAgICAgIC AgICAgICAgICAgICAgICAgICAgICAgICAgICANCiAgICAgICAgICAgICAgICAgICAgICAgICAgICAgIC AgICAgICAgICAgICAgICAgICAgICAgICAgICAgICAgICAgICAgICAgICAgICAgICAgICAgICAgICAgIC AgICAgICAgICANCiAgICAgICAgICAgICAgICAgICAg ICAgICAgICAgICAgICAgICAgICAgICAgICAgICAgICAgICAgICAgICAgICAgICAgICAgICAgICAgICAg ICAgICAgICAgICAgICAgICAgICANCiAgICAgICAgICAgICAgICAgICAgICAgICAgICAgICAgICAgICAg ICAgICAgICAgICAgICAgICAgICAgICAgICAgICAgIC AgICAgICAgICAgICAgICAgICAgICAgICAgICAgICANCiAgICAgICAgICAgICAgICAgICAgICAgICAgIC AgICAgICAgICAgICAgICAgICAgICAgICAgICAgICAgICAgICAgICAgICAgICAgICAgICAgICAgICAgIC AgICAgICAgICAgICANCiAgICAgICAgICAgICAgICAg ICAgICAgICAgICAgICAgICAgICAgICAgICAgICAgICAgICAgICAgICAgICAgICAgICAgICAgICAgICAg ICAgICAgICAgICAgICAgICAgICAgICANCiAgICAgICAgICAgICAgICAgICAgICAgICAgICAgICAgICAg ICAgICAgICAgICAgICAgICAgICAgICAgICAgICAgIC AgICAgICAgICAgICAgICAgICAgICAgICAgICAgICAgICANCjw/bWHdK5wzqOLgkwD0A6ssDo7TWv0APJ 8lw2VvEIUjEJqqilFyBouUIbYlMPQjWaqMScq9LOggZJ0WeCAmL4KpJ1JkLFmyNM8NOJSkQSKqwCCtFK ImSJVyTdA5HSDiCBqnQC1HxHAvOQdxSWYrISVoVjYw HRNlVXXaMLVmJDNaGAIZFVLsRSTkIkHtUOFuIMSiALicTPIWFL8OPhGmC0GasP56TGdHDo3+DQplbmRv TozRDeK1KGYer4JhHUu1SH2GVSXuBsnil9RtLFFnENMVIFxbEY8FOXP2TLC2IADvBg4JVBErY714roKd KL1OEn6YYoVlWG1oqq8SDFEzHGNeRrhLPad1YAkyJC 7KrLVuTNaPMhHhFkelBBYnyMCjTDJsBSYtGPduTUKfEVAzZG29YcTaBbAeUSy3MGlzBI8uDGebJJ1MJI C6ILlqQJSkHSVlL9cYZaAzGUscRBVliSasRK8QVyKqS3HbinAudAV0WCZxOGNOUr5+DQplbmRvYmoNCj G0NOCqa9PkBLs0WU7RGLSvJXwxDI8STKRehO2cCLwk VS3NXjS3WiLuIBLTOxQlO80itQZuPVl8F5HlDrCbXVAxRlthUKNcXDzlLvKeBJVzMqFeAZucXS5+ID4+ PLalEV7LFDsobbVlZSPsCq0ORFQiTZOxFT6jEKKsLGHnA4J6aAlkOKHICpDbZ0ljrcofRF3xKPUuO432 bDwzlcVmZPF7YAItOm0BKBTdEVX4LEMxbOLiSPBsPN XJNSywRO2HyWKxIGU8zL5dCQznVEMhOLGnW8wOCgRgxEwuGF12rDkybtMunJSkYQl+On1TLE8hj3MoBI h4uhBnVZqcSUO9OEleYCUiUTRtHCAjFZD0LFR2FAVVRuAcRFPtJENsHGyzPWHyZKReon8OMLZzAKF2XQ a0ShLeTLTlWZXbTAfnYYNsVAXsESM3PBXiGFKrAK6Q YfXhKPPfEMQnMXhnQWXlTZRghx8DNQTkZJHbKwK3UTReIVRyADPgCIjdANHcOGMqEol1BDVjRHQgNI2K AnScPUMiEXR6ERCcWVZwYEJrpd1QWKPiVQWeDMhaBCQeNDFuTQLaGWlsPCCbDXW5EXf3ASZnJFVfGD8R RfJfPBWkKXmeTDXsWHPbIKVtxu1TGTCnKWHxPAU0WI EjXEWbUBQcEMxbZXHlSPAgGcJjPGYeKWHzHA3UIyJrOYPrRSEoNkQuVQLfKPFybf0ATGUdVYPoJKM8ZH PgNWTuITYuJVynLRMdXZR0ArZvYFInWOUgTI0HDqFkPOKrQSx6SosuUYZhMDDjkc4RPTFxNFTaAUe5BP QjCZGaBECyKPktGZRiHVBmZHQpZDZwPHWnBH3FPeWh QUGmXwEoOCwuFRZfQFQxug4CMWGlZAAaTLJ7IFAmRXZjPQVaYHugMAWbERZtDKQ1QYGwONYbNG5HGmKk NXTsBgG2WLswFUBkORNgxo3COKUgCCPhUxWxEuWdGMTbDLSoTNxjMSTcTOTfRbg7HEJzOFAtQE7TUqDz JOFgQpysLSMdYWVoEKKxhg0HGWEkRHSyYIhfVDUoSK PwMKKgPNabXOFvXIN6RXR9FMDlGFUkXK4EIwEwUFJpTBH4VDYeHZFvKBBtys4CITGwYNN9HPS2OnRzTR AhXAYsOAinQHZdAYSjKGl5EWGlUZAtNA0GSvQfEJOgQWP8SFJmTQNcTTMaed2RITUsAJP4YRy6GVMfCS PxEIDoFRbzCYKsPJTlIMU9GQVkCLShNL9EDgOlEWBf NSS5FYFoFWIyYCXipf7PFGMmIHI9EbB7OONiJROiPCHkIUgcSZGyBSR1RTh3XXZeUICgPP7OEyFdIIDw KRU2OPOwBRPsTNWjum9XLMMnVXA5YrTmUIVsKYCkKSRdPNbkLJRiIBB5EpF3QSEmBVUeII7QWxDyFUVz ZPv3CGjlKCMuBZQzjg7CTBYuMGI1YOH5MDKpYONeRP FxVNoySLNuJWN8NRAiQARzXJEfGO0SPnDjCZBlMRn8AsEcLTDkZNAvdw3AGUKqVLD4NDZ5YlVaJDKzQZ ThATdnMPFuQKGqRrX6WGKtRPGmPJ7KPfHmOETyVlQ7FwIxNRIpGEAxxr7LEAQpTTB5HMp7WZVlYIWrCJ VgVFy7exPcdXGkKVe7NY9HO2DuloMkPLwJFe0Mh965 FQL8MZXrSw8OT9dnRl8oISJeZZUJGb0BGSx2SCCkAyj0OjK7OJy8NnYrB7HgRdHwCHAxAIB2CoK3ZcL+ DFhzWMEpYDHgIBd9AlBpBzNhKJIfTQV0UICbKnL2OEzaAM4hEUCJXf7+DQpzdGFydHhyZWYNCjYxMTE1 NIduBPCHXo6J ID Date Data Source [id number] 10/10/2019 11:20:00 AM EDT [facility] Name Value Range Interpretation Code Description Data Dominga rce(s) Supporting Document(s) Urine Creatinine 235.00 mg/dl [facility] Random Urine Specimen Urine Microalbumin 22.7 mg/L 0.0-20.0 Above high normal [facility] Random Urine Specimen Urine Microalbumin/Creat. Ratio 9.7 mg/G 0.0-30.0 Normal (applies to non-numeric results) [facility] The above 3 analytes were performed by [facility] [id number],[facility] [id number],[place] [address] ID Date Data Source [id number] 10/10/2019 11:13:00 AM EDT [facility] Name Value Range Interpretation Code Description Data Dominga rce(s) Supporting Document(s) Amphetamines, Urine Negative Negative Normal (applies to non-nume mary results) [facility] Barbituates, Urine Negative Negative Normal (applies to non-numer ic results) [facility] Benzodiazepines, Urine Negative Negative Normal (a pplies to non-numeric results) [facility] Cannabanoids, Urine Negative Negative Normal (applies to non-nume mary results) [facility] Cocaine, Urine Negative Negative Normal (applies to non-numeric r esults) [facility] Opiates, Urine Negative Negative Normal (applies to non-numeric r esults) [facility] PCP, Urine Negative Negative Normal (applies to non-numeric resul ts) [facility] Methadone, Urine Negative Negative Normal (applies to non-numeric results) [facility] DrugMinimum Detection Threshold (Conc.)A [id number] ng/mLBarbiturates 200 ng/mLBenzodiazepines 200 ng/mLCannabinoids 50 ng/mLCocaine Metabolites 300 ng/mLOpiates 300 ng/mLPhencyclidine (PCP) 25 ng/mLMethadone 300 ng/mLOxycodone 100 ng/mLNOTE: Phentermine may interfere with the amphetamine analysis.NOTE: This urine drug analysis is a screening procedure. [facility] recommend submitting positive specimens to a referencelaboratory for confirmation. Oxycodone, Urine Negative Negative Normal (applies to non-numeric results) [facility] The above 9 analytes were performed by [facility] [id number], ,[place] [address] ID Date Data Source [id number] 10/10/2019 10:58:00 AM EDT [facility] Name Value Range Interpretation Code Description Data Dominga rce(s) Supporting Document(s) Urine Color Yellow Light-Yellow,Yellow Normal (applies to no n-numeric results) [facility] Urine Appearance HAZY CLEAR Abnormal (applies to non-numer ic results) [facility] Urine Specific Hext 1.032 1.015-1.025 Above high normal [facility] Urine pH 6.0 5.0-7.0 Normal (applies to non-numeric resul ts) [facility] Urine Protein 1+ NEG Abnormal (applies to non-numeric results) [facility] Urine Glucose NEG NEG Normal (applies to non-numeric re sults) [facility] Urine Ketone TR NEG Abnormal (applies to non-numeric r esults) [facility] Urine Bilirubin NEG NEG Normal (applies to non-numeric results) [facility] Urine Blood NEG NEG Normal (applies to non-numeric resu lts) [facility] Urine Urobilinogen NORM <0.2,1.0,<2.0,0.2 Abnormal (a pplies to non-numeric results) [facility] Urine Leukocyte Esterase NEG NEG Normal (applies to non -numeric results) [facility] Urine Nitrite NEG NEG Normal (applies to non-numeric re sults) [facility] Urine WBC 2 /hpf 0-2 Normal (applies to non-numeric resul ts) [facility] Urine RBC <1 /hpf 0-2 Normal (applies to non-numeric resul ts) [facility] Urine Squamous Epithelial Cells 25 /hpf 0-0 Above high norm al [facility] Bacteria 1+ /hpf NEG,[none] Abnormal (applies to non-numeric res ults) [facility] Mucous SLIGHT /lpf NEG,[none] Abnormal (applies to non-numeric re sults) [facility] The above 17 analytes were performed by [place] [place] [id number], ,[place] [address] ID Date Data Source [id number] 10/10/2019 10:14:16 AM EDT [facility] Name Value Range Interpretation Code Description Data Dominga rce(s) Supporting Document(s) Progress Notes [facility] ONLGMi3yRdQYRuDh82/LISvlRKBhr2MdCXysQIb9QAprIDDiU8GpEAZ4eD0mRVJ5IWoIKjWdVwPbRNN2 lbm [file] ICAgICAgICAgICAgICAgICAgICAgICAgICAgICAgICAgICAgICAgICAgICAgICAgICAgICAgICAgICAg ICAgICAgICAgICAgICAgICAgICAgICAgICAgICAgIC AgICAgDQogICAgICAgICAgICAgICAgICAgICAgICAgICAgICAgICAgICAgICAgICAgICAgICAgICAgIC AgICAgICAgICAgICAgICAgICAgICAgICAgICAgICAgICAgICAgICAgICAgICAgDQogICAgICAgICAgIC AgICAgICAgICAgICAgICAgICAgICAgICAgICAgICAg ICAgICAgICAgICAgICAgICAgICAgICAgICAgICAgICAgICAgICAgICAgICAgICAgICAgICAgICAgDQog ICAgICAgICAgICAgICAgICAgICAgICAgICAgICAgICAgICAgICAgICAgICAgICAgICAgICAgICAgICAg ICAgICAgICAgICAgICAgICAgICAgICAgICAgICAgIC AgICAgICAgDQogICAgICAgICAgICAgICAgICAgICAgICAgICAgICAgICAgICAgICAgICAgICAgICAgIC AgICAgICAgICAgICAgICAgICAgICAgICAgICAgICAgICAgICAgICAgICAgICAgICAgDQogICAgICAgIC AgICAgICAgICAgICAgICAgICAgICAgICAgICAgICAg ICAgICAgICAgICAgICAgICAgICAgICAgICAgICAgICAgICAgICAgICAgICAgICAgICAgICAgICAgICAg DQogICAgICAgICAgICAgICAgICAgICAgICAgICAgICAgICAgICAgICAgICAgICAgICAgICAgICAgICAg ICAgICAgICAgICAgICAgICAgICAgICAgICAgICAgIC AgICAgICAgICAgDQogICAgICAgICAgICAgICAgICAgICAgICAgICAgICAgICAgICAgICAgICAgICAgIC AgICAgICAgICAgICAgICAgICAgICAgICAgICAgICAgICAgICAgICAgICAgICAgICAgICAgDQogICAgIC AgICAgICAgICAgICAgICAgICAgICAgICAgICAgICAg ICAgICAgICAgICAgICAgICAgICAgICAgICAgICAgICAgICAgICAgICAgICAgICAgICAgICAgICAgICAg ICAgDQogICAgICAgICAgICAgICAgICAgICAgICAgICAgICAgICAgICAgICAgICAgICAgICAgICAgICAg ICAgICAgICAgICAgICAgICAgICAgICAgICAgICAgIC QcAGCsXLUcWJHeMYVzSFg5F4utJADxGPYjLM3eEWo9Em9+VKhWQcDsXAV4ytTfqO6KSQ3wr6CnLTfwIH Xrz5EtTCs5AC3FADZvESjzSY6YWAtpgk8LEFKiEVWilZSXe0lgHwAuTPU5FFKvZuarYL7VODMgW5llor BxBOReTVOSPG2ZKjNwW9RguI11QNSISc2+DQplbmRv UosFQxMuUBVon1WlFOl0PD0ITYHiPwoke6OyXcBqPYOEPIjiQA2CAGP9PKXjBFXwFg0GBLTzG038ejIm AL8WVu4KMeNnDH4kpg1ZZjMgYVUhZkkNZvr8ACegBG5VhIFtFDwSso2mieUsouFJv7DssvPdhWMZf61e glafcMWyUTNxeGXrBO4ZJDT6VOLhBI5lZOXwPGHpKt A7GXTXKZ9YSHFoGVYcfTDzMKLqWENJYM4VIOnpSPD7CiqmpyLsiYQaHWdfYG6HINPouwHrObAbPKSFHE o+Og7BAS5ss1CqREojXwNtSE4nnw1WRKbWNqQxK4A9rJLcT1X8EDkwRp2PIBLcWMGcLCjoLPSZLXvuEA 6YSS2zexI5YK5JsHVkOHViEXZzxNLuSPa0C20afZPn SUlmQA6RNLL+Lily+Mp8NQEZiXJBrJDBhFoFeNUONVcTpD5YlG4WSq7LrT2ClZJ67bOklawBpJMuyUG7D PP7aVEPiHDWORG6PlSKzsS2cpgSoQSXkOJVEXpTtH08yuGEnVFOlZIZ8HKPeQf0FDNJpO6RsguYbbWml zwOjAHQrSQXJLT6DEFfxthBclUKrjUjlAX91zQmdLB 2PLq6QYuAoSU4dey2PxXPjTm8THVPpLm6WKCLzSMBkITRnFJI7YDLkRqFlUHlfRHYzZOFeXBO3KCSrHU YtVY5DXiIbGJCaKLq5NQAwSTWuVCJpcv0ASEJzRAMmPYNqGNLpJHNnGQPaHXokXEEoLBSwUIJ4EAOcMG BgRZ1NQmTeCNRaZJK0WSQtMEAyQNYkiy0IXAUsIXPk DjA6KkMeJOLeIQSvBSthDNHwZVJ1YNT8NJXnMNHgIC0WVeBxYEHiXRIwRQIyCFHfUJDvbx2PUZIaGQZa UYC4MIBcZYVgNUIjFSyhPZKzBJD7ZyW4RWRzXQJaMH4GJsZaBAIpNPR3VPOqTXTxIHQfhq6INHPrEPHr XGotSTGaEKYgZBNvTTujIDQvZUS7Fdf3CEGkGBSbAY 9XOaArNIRxTJE3PGAzXTUiPPLtfa2ICCZxRZKbCpY3SVBtHWCyHMDzCNqhWZZmWHX2VWDpAKFvCYDzWH 0FBoHnKNFrQEbvSVTlGEDjGIZmtt0TTCMpAEEiXDLqHPArXIVuTLAeOFrmWRRqIWQ0MAU3RAWoWNZqRK 9TKyZcICSmNIVhUHMwKPZtAOExro0EYNYgURSnGTY0 IhWsYGElEWOvKXnzULSlCXZqIHX2XVVtBFEgDL3YGbMaXNybYGSDPck8KAnmJ5n1BZZqXo4PQ8Cxh0Gx HoViCBIPSIvwHI7rgbQrWCEyAx2ZI1cBEfdlSNF5IBMoL4L3JPSrTRN4NjknEAWvKkN0RDTsTITtEi5e UOWgDrr0UeNoMFThUoE4ROGqWfLaVvTmFvq1V4Y7IO A2GfBlGY0SRm1EKjR5FZP4vBFaDx9QOXC7WdPUMlJeWP5AHVd= ID Date Data Source [id number] 10/10/2019 11:21:00 AM EDT [facility] Name Value Range Interpretation Code Description Data Dominga rce(s) Supporting Document(s) ABO-Rh Typing A Positive [facility] Antibody Screen Negative [facility] Specimen Expires Date/Time [facility] PATIENT HISTORY Pt Hx Checked [facility] The above 4 analytes were performed by [facility] [id number], ,[place] [address] ID Date Data Source [id number] 10/10/2019 10:35:00 AM EDT [facility] Name Value Range Interpretation Code Description Data Dominga rce(s) Supporting Document(s) Uric Acid 4.1 mg/dl 2.6-6.0 Normal (applies to non-numeric resul ts) [facility] N-Acetylcysteine (NAC) and Metamizole zhang ve the potential to falselydepress Uric Acid results. Baseline values before medication adminstration are recommended.The above [address]es [address] [facility] [id number], ,[place] [address] ID Date Data Source [id number] 10/10/2019 10:35:00 AM EDT [facility] Name Value Range Interpretation Code Description Data Dominga rce(s) Supporting Document(s) AST 13 IU/L 15-37 Below low normal [facility] Sulfasalazine and sulfapyridine have the potential to falsely depressAspartate Aminotransferase results. Baseline values before medication administration are recommended. ALT 20 IU/L 13-56 Normal (applies to non-numeric resul ts) [facility] Sulfasalazine and sulfapyridine have the potential to falsely depressAlanine Aminotransferase results. Baseline values before medication administration are recommended. Alkaline Phosphatase 144 mIU/ml 50-136 Above high normal [facility] Total Bilirubin 0.20 mg/dl 0.20-1.00 Normal (applies to non-numeric results) [facility] Blood Urea Nitrogen 11 mg/dl 7-18 Normal (applies to non-nume mary results) [facility] Creatinine 0.72 mg/dl 0.51-0.95 Normal (applies to non-numeric resul ts) [facility] N-Acetylcysteine (NAC) and Metamizole zhang ve the potential to falselydepress Creatinine results. Baseline values before medication adminstration are recommended. Patients undergoing treatment with phenindione will have falselydepressed results. Patients on phenindione therapy should be tested with an alternativeCREA method. Glomerular Filtration Rate >90.00 mL/min/1.73m2 [facility] GFR Reference Ranges:Normal Function or Mild Renal Disease,if clinically at risk:>or= 60Moderately decreased:30 - 59Severely decreased:15 - 29Renal Failure:<15 Please note that the MDRD equation requires an additional adjustment forAfrican-Americans (multiply the GFR result by 1.210).Glomarular Filtration Rate (GFR) is estimated based on the MDRDequation, which assumes a steady state for creatinine (Jennifer Int Med 139/2 137-149, 2003), as recommended by the NationalKidney Disease Education Program in conjunction with the National Institutes of Health and the National KidneyFoundation. The [place] method used in calculating this result is traceable to IDMS standards. Glucose 101 mg/dl 70-110 Normal (applies to non-numeric resul ts) [facility] Sulfasalazine has the potential to false ly depress Glucose results. Sulfapyridine has the potential to falsely elevate Glucose results. Baseline values before medication administration are recommended. Calcium 9.5 mg/dl 8.5-10.1 Normal (applies to non-numeric resul ts) [facility] Total Protein 7.0 g/dl 6.4-8.2 Normal (applies to non-numeric re sults) [facility] Albumin 2.5 g/dl 3.4-5.0 Below low normal [facility] Sodium 141 mEq/L 136-145 Normal (applies to non-numeric resul ts) [facility] Potassium 4.5 mEq/L 3.5-5.1 Normal (applies to non-numeric resul ts) [facility] Chloride 111.0 mEq/L 98.0-107.0 Above high normal [facility] Anion Gap 12.5 [facility] Carbon Dioxide 22.0 mMol/L 21.0-32.0 Normal (applies to non-numeric results) [facility] The above 16 analyt[id number] [address], ,[place] [address] ID Date Data Source [id number] 10/10/2019 10:35:00 AM EDT [facility] Name Value Range Interpretation Code Description Data Dominga rce(s) Supporting Document(s) Magnesium 2.0 mg/dl 1.6-2.6 Normal (applies to non-numeric resul ts) [facility] The above 1 analytes were performed by [facility] [id number], ,[place] [address] ID Date Data Source [id number] 10/10/2019 10:35:00 AM EDT [facility] Name Value Range Interpretation Code Description Data Dominga rce(s) Supporting Document(s) LDH, Total 176 IU/L 84-246 Normal (applies to non-numeric resul ts) [facility] The above 1 analytes were performed by [place] [id number], ,[place] [address] ID Date Data Source [id number] 10/10/2019 10:34:00 AM EDT [facility] Name Value Range Interpretation Code Description Data Dominga rce(s) Supporting Document(s) Fibrinogen 642 mg/dl 200-360 Above high normal [facility] Discrepant results may occur due to anti coagulant effects such asheparin, direct thrombin inhibitors; argatroban (Acova), bivalirudin(Angiomax) or dabigatran (Pradaxa) or direct factor Xa inhibitors;rivaroxaban (Xarelto), apixaban (Eliquis) and edoxaban (Savaysa).The above [address] [facility] [id number] [address], ,[place] [address] ID Date Data Source [id number] 10/10/2019 10:34:00 AM EDT [facility] Name Value Range Interpretation Code Description Data Dominga rce(s) Supporting Document(s) PTT, No Coag Tx/Coag Tx Unk 25.8 Seconds 24.9-30.6 Norm al (applies to non- numeric results) [facility] Attention: Effeciive 07/02/2019The norm al range for PTT has changed:Previous normal range: 24.0-31.5New normal range: 24.9-30.60Discrepant results may occur due to anticoagulant effects such asheparin, direct thrombin inhibitors; argatroban (Acova), bivalirudin(Angiomax) or dabigatran (Pradaxa) or direct factor Xa inhibitors;rivaroxaban (Xarelto), apixaban (Eliquis) and edoxaban (Savaysa).The above 1 analytes were performed by [facility] [id number], ,[place] [address] ID Date Data Source [id number] 10/10/2019 10:34:00 AM EDT [facility] Name Value Range Interpretation Code Description Data Dominga rce(s) Supporting Document(s) PT, No Coag Tx/Coag Tx Unk 10.1 Seconds 10.0-11.4 Ruby l (applies to non-numeric results) [facility] Attention: Effeciive 07/02/2019The norm al range for PT has changed:Previous normal range: 10.1-11.3New normal range: 10.00-11.40PT referenence range reflects values for patients not on anticoagulanttherapy.Discrepant results may occur due to anticoagulant effects such ascoumadin, direct thrombin inhibitors; argatroban (Acova), bivalirudin(Angiomax) or dabigatran (Pradaxa) or direct factor Xa inhibitors;rivaroxaban (Xarelto), apixaban (Eliquis) and edoxaban (Savaysa). INR (No Coag Tx/Coag Tx Unk) 1.0 0.9-1.1 Nor mal (applies to non-numeric results) [facility] International Normalized Ratio ( INR)Indications INR Range Pat ients not on Anticoagulant Therapy *Deep Venous Thrombosis 2.0 - 3.0Pulmonary Embolism 2.0 - 3.0Atrial Fibrillation 2.0 - 3.0Prophylaxis: 2.0 - 3.0 High-Risk Surgery Tissue Heart Valves Atrial Fibrillation Acute Myocardial Infarction Valvular Heart DiseaseMechanical Prosthetic Valve 2.5 - 3.5* Use of INR values should be limited to patients who are on stable oralAnticoagulant Therapy.An INR above 5.0 - 5.5 appears to be associated with an uacceptably highrisk of bleeding.The above 2 analyt[address] [facility] [place] [id number], ,[place] [address] ID Date Data Source [id number] 10/10/2019 10:17:00 AM EDT [facility] Name Value Range Interpretation Code Description Data Dominga rce(s) Supporting Document(s) WBC 12.48 x1000/ul 4.80-10.00 Above high normal [facility] RBC 4.27 x1Mil/ul 4.20-5.40 Normal (applies to non-numeric re sults) [facility] Hemoglobin 11.4 g/dl 12.0-16.0 Below low normal [facility] Hematocrit 34.7 % 37.0-47.0 Below low normal [facility] MCV 81.3 fL 81.0-99.0 Normal (applies to non-numeric resul ts) [facility] MCH 26.7 pg 27.0-31.0 Below low normal [facility] MCHC 32.9 g/dl 32.2-37.0 Normal (applies to non-numeric resul ts) [facility] RDW 13.8 % 11.5-14.5 Normal (applies to non-numeric resul ts) [facility] Platelet Count 185 x1000/ul 130-400 Normal (applies to non-numeric results) [facility] MPV 11.6 fL 9.4-12.4 Normal (applies to non-numeric resul ts) [facility] Neutrophils 77.8 % 40.0-74.0 Above high normal [facility] Lymphocytes 15.8 % 19.0-48.0 Below low normal [facility] Monocytes 4.9 % 3.4-9.0 Normal (applies to non-numeric resul ts) [facility] Eosinophils 0.7 % 0.0-7.0 Normal (applies to non-numeric resu lts) [facility] Basophils 0.2 % 0.0-2.0 Normal (applies to non-numeric resul ts) [facility] Immature Granulocytes 0.6 % 0.0-0.5 Above high normal [facility] Nucleated RBCs 0.00 % 0.00-0.20 Normal (applies to non-numeric r esults) [facility] Abs. Neutrophils 9.70 x1000/ul 1.92-8.31 Above high normal [facility] Abs. Lymphocyte 1.97 x1000/ul 1.20-3.70 Normal (applies to non-n umeric results) [facility] Abs. Monocytes 0.61 x1000/ul 0.14-0.97 Normal (applies to non-nu meric results) [facility] Abs. Eosinophils 0.09 x1000/ul 0.00-0.76 Normal (applie s to non-numeric results) [facility] Abs. Basophils 0.03 x1000/ul 0.00-0.22 Normal (applies to non-n umeric results) [facility] Abs. Immature Gran. 0.08 x1000/ul 0.00-0.02 Above high normal [facility] Abs. Nucleated RBCs 0.00 x1000/ul 0.00-0.02 Normal (appl ies to non-numeric results) [facility] The above 24 analytes were performed by [place] [facility] [id number], ,[place] [address] ID Date Data Source [id number] 10/10/2019 09:23:35 AM EDT [facility] Name Value Range Interpretation Code Description Data Dominga rce(s) Supporting Document(s) Nursing Note [facility] WSZRWt1vAcMNExDt54/DWMuaOOKrw4GaXQlxJBl3NIacVZZgF5TvOQE6sE7qVQA2ZKgYCsJpDzMjEPS7 lbm [file] X2JOLyRuDyTujaISX+MI2vHVy+Ab1Aj1EytoZ1hiWrOLtsNGoeND2MHKWSC1LGHr== ID Date Data Source [id number] 10/09/2019 02:34:13 PM EDT [facility] Patient: MEENU BLAKE : [birth year] [facility]: ULTRASOUND BIOPHYSICAL PROFILE WITH NON STRESS TEST Provider: DANNI NICOLEERICLINICAL HISTORY: 29-year-old female. Maternal hypertension. Evaluation of well-being. Biophysical profile.Limited sonogram for biophysical profile is performed.Cervix is not visualized. There is a single fetus in cephalic presentation. heart rate is 160 per minute.Placenta is posterior. There is no evidence of previa. MARIELA is 93 mm.Biophysical profile s core is 8 out of 8.IMPRESSION: BIOPHYSICAL PROFILE SCORE IS 8 OUT OF 8.Report edited for Jaime Benedict MD 10/09/2019 2:06 PM Electronically Signed by Jaime Benedict MD 10/09/2019 2:34 PM Name Value Range Interpretation Code Description Data Dominga rce(s) Supporting Document(s) ID Date Data Source [id number] 10/08/2019 03:19:57 PM EDT [facility] Name Value Range Interpretation Code Description Data Dominga rce(s) Supporting Document(s) Telephone Encounter [facility] SUWOIb8qBoHLPvWu23/CGCqzCYHtl6SzAAvpXVn5IMdfNGScE7BlQDQ0aV8oZOX9PXtBDeGrZyQsARL9 lbm [file] ICAgICAgICAgICAgICAgICAgICAgICAgICAgICAgICAgICAgICAgICAgICAgICAgICAgICAgICAgICAg SFNmIGKiHUAcZZ0QAICoHBTtQWIqCADyBNLxBPEnSNStEVEjNJYaJDZqYFZpAICkXZJoIOIcIJSwIKZu ICAgICAgICAgICAgICAgICAgICAgICAgICAgICAgIC IyEZRlCIDpPXWfVTNsVBGiMREbHC5ESAMvUDZtTRApFVGgVRQvFCSuGTDdPMAmWTCpFSVbMGSwLMMiLS AgICAgICAgICAgICAgICAgICAgICAgICAgICAgICAgICAgICAgICAgICAgICAgICAgICAgICAgICAgIC YaDZ9CPBFcNZTlFTKjDNHoMRMpUKKrCBRiESLkJFIf ICAgICAgICAgICAgICAgICAgICAgICAgICAgICAgICAgICAgICAgICAgICAgICAgICAgICAgICAgICAg AKLpBHFlDEYmBKZbQF4QHYYqUPGkJAYwVWKzJKEwFMQfGEUrTZTgLVRuNISkZRLkBNTwEHUwFLZjUCXo ICAgICAgICAgICAgICAgICAgICAgICAgICAgICAgIC TsLPXdBPBdPXLaEOJfGFYlEOKkOVUsFO8TMUEsNYDsXERnYIZkETLfPZNgUPBrUJSjVCGcAODsBDDxQQ AgICAgICAgICAgICAgICAgICAgICAgICAgICAgICAgICAgICAgICAgICAgICAgICAgICAgICAgICAgIC VqNUFiPE5UMIXiWNFcULAzBKLjAYJdXRKrRWTaXJHd ICAgICAgICAgICAgICAgICAgICAgICAgICAgICAgICAgICAgICAgICAgICAgICAgICAgICAgICAgICAg DXQrXWEvMPZxXMOnSSOrLQ5DANTzMLZbTCAcBHAnSUQiXBOcESReNUNsRZKzLXSoUBMsYFHzZWRrSCLg ICAgICAgICAgICAgICAgICAgICAgICAgICAgICAgIC OmXMDhZTZzEWYhTSTxAQDjIQBeEKLwIRHxXV2OIDIyELErTBItUONkWMBoDGFmESAoUNZeKECnMUOnUS AgICAgICAgICAgICAgICAgICAgICAgICAgICAgICAgICAgICAgICAgICAgICAgICAgICAgICAgICAgIC LuMXHdPCPuNR0MCZKhOINuRQGtNYWbCOPyORPlDDYt ICAgICAgICAgICAgICAgICAgICAgICAgICAgICAgICAgICAgICAgICAgICAgICAgICAgICAgICAgICAg THHpZZMjAHHfWYNrKSGiUXOfHD8EJQ37pKMsw1L6UDNwIV1agiq/Kk6QCVradnBswUMsIZ2LKkLwSH9t kh9MMiRlLO0ezo0CJBqCKvMeQ2J2wPIhIITcWNETWy AtG31eBQjgOp00VRttVDFrVpHdJLi3Uf5XEbRpI8dkNSWsCeD3QGQxIdXvOHhkQE3Qm6DifZZhIAm+Pg 6GZI2th7WoIMohKbStOX2yra0EVGeVRuWeF2EtefR9ISUeYWSrYg8EGCGkDUHgpTDuNgUvAFBNLeYzD1 GizV62BZIITi5+UZfqsxOnCplOMrOxWHIzf3DyIKn8 SU0HLKSrSUz0nRSlIHUrNPIyb18gHPMjM973xpMrclTtuORKfPgfcMLaVZgsQTXfwklgJMAWXOGVHJV0 EVAnAx7tAGGtTMMdUfT7VLCSOT3ZQVYfNHHcfUOyQQFsFSISVQ4WLTewZUB8IzaguwCcoIEsISvfNE6B YXJlbnQgMjIgMCBSDQo+Ol5ECZ0hu2ZqGFnwTKEsHQ 7gdj2LQPuKVwSvJ2Q4vXKxL8B8ITyeIf5IUYVpXJHwGrJdEURUNLsgKE1PHK4edzF8JT6TzIOjRGTyAK FnaNGkBLw1Q86tsUFiQHfqOS3YRRA+Lily+Wh9LTQAtDHZzNBUjIhFvGLBPByEuG9RlX8IVc0UaT4CaQO 21jDhvdhXkZYldCC3SFG0hOXZiVJDHDV6EmSGfdN0i agHwOaGcZNSAYiAkN44ujHXxHKGvAZSwIVVfRh9WIAQgA3HfyfBpjSvmtrMbZOIyLTOXNI0AYSnedvMq fBTbfLkxAO48aDenRK3LYb3ZMwVzTF4xbn5SvAKjBn1SQHFrBI4UASQgDLHaVFMkRCO6CJAnGaOsTFlw IGXrSGHsPSK8FOCqORTvSO1IPzNxVOSlVHd1TMYtRO CqSUDavm8DCJKzHGIoKQNsXDZgPKRsXWOiTXgmFRToIHRmQUX8CIAlSYBoVI4KWqPcGSNfOAWxElZsJN NfRLDppy6KMRKaEONnFOQxOfQwYDDwWMVyMMauHHGqTTKhRzv7RJJeETVnVA2PYvWuGHNyFRT7GRPlUN QtDRUamr4XTRRpPLJiTev8XIDzERNvTBObBBvdSNBm CPDpVjY1HVRxMQYaYH8VAwUdOBQeFYT2LdTkYJQxMRBzed6YOQLyVGGcTFTbQPOcBKKeXTYzUShiZCDx NRO0GCT4GKDvVZQaBR9IPfUzCATcAMZ9LeGfEUPkHRReye3HADXzZTKoEps9YcQqIDLlKGSbSBeqUTWb LVJ3OgBkZKCbAMKhXL0JAvUsUPCbWGilGdhmKCNoBB Csfb1DNEZvXLKvIUMuMXTqNJFqNADbHIfkTUEiOXW0TIi2URQoPLPmOA8YWaTgXONyZWu0IztkTYDgLY Hmly9IBITvITVpYIF8BHJeHIXfGYAiOKsmRGGnONTgSIUcWCRoPTTuGD5VCrGlHCRbXyX9YTNeMVTlFW Vfxm1RZKUhRIAcTFw6OJVzKAEmLTFqCXg4ynRyfEFu EGa1JT7AS3HflyFaSkQMMq0En791WPM0TQOcUd7LT3dxOg0zRXEePIETOc7CDSb7HXQnHjQ2ADpdPknv F0EbWOG6W8F5IhY4BLQbQgr6MIy+CMebKlOoNkc9APUkYbGuDuHsWTTgXCR4CjW6LwL3KfA0UO5rFBAD Cj4+MKsdoYVhoGjdINRZHeEkXKw1RGkmQBFGYt9M ID Date Data Source [id number] 10/06/2019 11:41:53 AM EDT [facility] Name Value Range Interpretation Code Description Data Dominga rce(s) Supporting Document(s) Progress Notes [facility] SUHFNi2rYuWAIgBn33/UEMsqYZRpv3JxXRpbRJy6WBopBYLoI5HxOBE3hQ4hMCJ8ESoWAmPsUrEhYBH1 lbm [file] ZhYw3XKyX9NszXJeCcQI3NOEc= ID Date Data Source [id number] 10/06/2019 11:41:48 AM EDT [facility] Name Value Range Interpretation Code Description Data Dominga rce(s) Supporting Document(s) Progress Notes [facility] LQSEIb2zWmEVNsUe72/ENIzsNEXat0OvCQyyLDs1UVgeEZUhB4CbUGO8aD8vQCM3NAcFUjUwDpWmVPI2 lbm [file] AgICAgICAgICAgICAgICAgICAgICAgICAgICAgICAg ICAgICAgICAgICAgICAgICAgICAgICAgICAgICAgICAgICAgICANCiAgICAgICAgICAgICAgICAgICAg ICAgICAgICAgICAgICAgICAgICAgICAgICAgICAgICAgICAgICAgICAgICAgICAgICAgICAgICAgICAg ICAgICAgICAgICAgICAgICAgICANCiAgICAgICAgIC AgICAgICAgICAgICAgICAgICAgICAgICAgICAgICAgICAgICAgICAgICAgICAgICAgICAgICAgICAgIC AgICAgICAgICAgICAgICAgICAgICAgICAgICAgICANCiAgICAgICAgICAgICAgICAgICAgICAgICAgIC AgICAgICAgICAgICAgICAgICAgICAgICAgICAgICAg ICAgICAgICAgICAgICAgICAgICAgICAgICAgICAgICAgICAgICAgICANCiAgICAgICAgICAgICAgICAg ICAgICAgICAgICAgICAgICAgICAgICAgICAgICAgICAgICAgICAgICAgICAgICAgICAgICAgICAgICAg ICAgICAgICAgICAgICAgICAgICAgICANCiAgICAgIC AgICAgICAgICAgICAgICAgICAgICAgICAgICAgICAgICAgICAgICAgICAgICAgICAgICAgICAgICAgIC AgICAgICAgICAgICAgICAgICAgICAgICAgICAgICAgICANCiAgICAgICAgICAgICAgICAgICAgICAgIC AgICAgICAgICAgICAgICAgICAgICAgICAgICAgICAg ICAgICAgICAgICAgICAgICAgICAgICAgICAgICAgICAgICAgICAgICAgICANCiAgICAgICAgICAgICAg ICAgICAgICAgICAgICAgICAgICAgICAgICAgICAgICAgICAgICAgICAgICAgICAgICAgICAgICAgICAg ICAgICAgICAgICAgICAgICAgICAgICAgICANCiAgIC AgICAgICAgICAgICAgICAgICAgICAgICAgICAgICAgICAgICAgICAgICAgICAgICAgICAgICAgICAgIC AgICAgICAgICAgICAgICAgICAgICAgICAgICAgICAgICAgICANCiAgICAgICAgICAgICAgICAgICAgIC AgICAgICAgICAgICAgICAgICAgICAgICAgICAgICAg ICAgICAgICAgICAgICAgICAgICAgICAgICAgICAgICAgICAgICAgICAgICAgICANCjw/aARyK9uivZCz jeJ2W3lnGb9KOl6YXR4un6JtBEJtZAkgkmLuNffFSsEyRHZsNscRCgd6RNdwRL6TeFAaR7OuX8OiQOqd IW6OOJRkXJXrrNTfWSAwPMBzDoI9OZZoTVdzJE7DeL CwANlbPEWtDMTxCC7KHCVoB156gvPrOW6OPp9YReRvSU6jzs6RDkPtUDNbLiwVWpz9NWzcPI4WwBUbfP EwOlRfSTCMGsBkN1xpa3GtFyOmTOHICQdrJL9Zn7QhbIZbXGv+Rr1YGZ5nt9DcUEibTfMwSL3tsw3SHM sZSdEyA2FblFvhIFNrb4wvRHEgUI6gaQSlIOQ4EGE4 MTBQvIKiAZ6ko6kxAXBZSZZ8ORUsKE2rZUVbVTV1MrHcGWYPIA6YSRLwNCAuzZAnGXInSMYAGN0UYKca WPN9LymjwyMqwDNbCVkjIY3KMFHczdQfQoJgSYFSAIp+Xm7HCX8ie9KlWEooVKJxDR1fpx9JHPcRPnYf E6Y0cCWzG0Y1KSvfBp4NLPZpGEJdKiIlGEAYCXmpOA 7RUH6wlyM4WK8KrYQyJPCaJRIamOEyCDn5U12fvBChKIlrPA8OINE+Lily+Qs2AWLBvNWVxUMDzNzMhXU YENxWdP7VcI9HDf2WoL1GuRN81aYcrbjDgNQduWV3AGI3wEHJnGLPRLO0WyOJkuI0qcyPnFgQfZYNAOn PzW02apUUlKPJxJXOsDBDwOb8CGYSoI7OpoaTphNdg kcRrKPWaCELJMC7IVGlyvcMfzUMkmTgbLR90fLiyWF7PZm3KLeIxKL1mfw6ElEKdHc4DBQZrZN8VRONf NTLjRMRkCSH8UIWfGzMmXDmbOEVeKSXrGTU0CPQjBXNySO0SBuRqCWDfNXdvMFZkAUItHLKizs0GICPc XAAnHJQ7LIXfKNYeWVVgGGghZCTaPFFzZRO3OFBjVG ZwJL8SSuFpSSKrFNJ6WAgpKNCfZHHwro2KAJGtQBMfGLX4RVMdQIQcYQQrTSheQMFfTKAzYEV7ITNcBJ TsXU7HKkVxBQFcTDWhDBSvJQMgTLLkuf7FPYJrIYZnIeTcHWVwTBEaGHJaCDrcQFLnBTXaHax0TDSlDP SiHS8FAaSnICSxHGZ8FTHaNGViGAWsdp5NVNLjVMXw Vvh1UrZzNJMhYWZtXClyFYUnHCX7JXOaPRGoBAHsBP7BItNuRZUvBYL0JnxbKXEtQVInxo3YFMLuWVZr MnT8RiTjNEBsLUKoACudAEQsMEN2FRy9HCHuGRPxET4YInXfSYRvKRxsZbEiOBBbPXUlbq7IWDRhCVFd Bph0WIMzPCOnPUDnIWaiASZyYPM4XKQcWEJyXYGqBV 4CKsUoAOUiPWszRgHkKCWdSEPjtl1HWCArSQRcNXv0QJCsVKAbQXCmDKreIAJvAYMwLLr3MXFlKRCkAI 7VWdGsAIFcKsOaGRkiCAFvBFDixc5BYIGbDTMsJGGmNRHqTKJyPINmMZs7vuExaIRuRVb9IT0VE7Mcdl MvXrQDDw0Br470WHA3SDWsXg8AX4pqYp2yMYFnJNFR Uk4IIJh7RnEbUAk9WgS7EtqmPQL8MqpsQmHbDjEeH6D9UBZ0Fkh+ECrpK5LvWUQeBTw7XgAjXaWfPyW7 PFQkKuUaFAr1XaUgKO0aOIIPQl0+DFajuSQdoBppLOAOWbEbZkZ0VMvkUOBMWa0K ID Date Data Source [id number] 10/06/2019 10:59:51 AM EDT [facility] Name Value Range Interpretation Code Description Data Dominga rce(s) Supporting Document(s) Progress Notes [facility] MESGXe0pTmVSQoWz12/MVErmZDFcr2IdENnvGUe6UTbfGTErS1XbSGI4tL9hALZ4COvOTdGuFeCbVGG0 lbm [file] C5oNIoOf4GEcI7XtlWNpOqMN7WAEv= ID Date Data Source [id number] 10/03/2019 01:58:58 PM EDT [facility] Name Value Range Interpretation Code Description Data Dominga rce(s) Supporting Document(s) Telephone Encounter [facility] HMXOLb5hFwOUOlZi12/HBVkeSJLxa6PrREnwBFd9CBxqYUIpE2KfONM8aX9kINZ3OMcYWdScWgXfCKPh lbm UwKsbRXbPxJLNuVwlUNyLvRWitWokntEWjEQ9FdSB1THJiH03yTNQjQDVpU0EhHOp0NS2+BAfoEZV0mr IwsK5KBCY1U1fc2zLBcg/Yf+SoIIcUqkcGg8JJlbIASdWjYt/CNlPMXLOaVyp3P/TpV18pZhD4hCNyAL mU8FbCaTpXLMSfF/A5MDgU2x510WVW7Z5+foDaTOCT Lf5uBQEHxXbSlXX6AwgjZc7StBENY0rUHWO9BEXgOcIRk3xZwTDE2f6bXxgLOl26NrY5UUQcWQd2FCiz eKYbUx4klwVLWfxla4WowO5FY5JHUyfNdmCTOGhaRI6kQ101bDQMqrwROfO4c5EyiTpxvD24nAltaHua Lt03UeqLvCpe6WDjNqJw7Lh5QUyEpQCspKN3jIhJ3N KF17tv1BxXEmNuzplazAUrCuvLWNpqbUUQtqXwDmSSDaO3FxDJ2fAlHAnhm91v3QF7nCq4GPsjHf+8ql mQZ6NBcBc9xRsydgWphDWqxHXcEhaW96ZrXG/12TNqkBCNuGv5ULU8WnqCzjzSuZdWdTMKCq0iJnTJwI [id number]/SLlALvKdPdpgfLUj7PmG/2G0et0pQ scB7iitIpzjg1Nx//Ni/I3cmRIh93XSxScYMn5cHqYEzFTRV2izJetzOLu8EXn/SymEKuc+M19qlufO [file] JsYgW3ZFK0WzQtWgBcVITmQQlcLCZ+EZ1hXIa+Or5Du5UpmhE4mfNhASkmQXn7FB4TMHVSW7PJMj== ID Date Data Source [id number] 10/02/2019 03:39:00 PM EDT [facility] Name Value Range Interpretation Code Description Data Domniga rce(s) Supporting Document(s) Progress Notes [facility] PJOOIo8sBhNLNmQv93/UNKusKTRah2DyMTmuNXm6ADuhMHTfR4OcEZN2xA7mSEJ7KGeOGkYhMfXyHCTl lbm [file] Q1DUF0OOW5OjanUYKuPS3vKQAMIy3+QDhojHTavDonLTZZUxX2QwT3HLlnDPMCGo1Z ID Date Data Source [id number] 10/02/2019 03:20:33 PM EDT [facility] Patient: MEENU BLAKE : 1990 MR N: [id number] [facility]: ULTRASOUND BIOPHYSICAL PROFILE WITH NON STRESS TEST Provider: EDGARDO ENRIQUEINICAL HISTORY: 29-year-old female with hypertension. Evaluatebiophysical profile.The biophysical profile score is 8 out of 8. Please see attached data sheet fordetails of the procedure. heart rate is 138 per minute. The fetus is in breech presentation. Fetalmeasurements were not performed. Cervix is closed measuring at least 6 cm.IMPRESSION: BIOPHYSICAL PROFILE IS 8 OUT OF 8.Report edited for Jaime Benedict MD 10/02/2019 3:06 PM Electronically Signed by Jaime Benedict MD 10/02/2019 3:20 PM Name Value Range Interpretation Code Description Data Dominga rce(s) Supporting Document(s) ID Date Data Source [id number] 10/02/2019 12:33:31 PM EDT [facility] Name Value Range Interpretation Code Description Data Dominga rce(s) Supporting Document(s) Nursing Note [facility] OGJCDw3kGxTDFoTu01/QZXfaUXCan6CfUYscTZn4AZgwLWEkZ7GuPYV5tZ8tSMX3AWlECnKfYkPiQXJf lbm [file] DQo+Gm3Kq0VxqfA5udBlXDhcXSd3NQ7KLABRC3NIVt== ID Date Data Source [id number] 10/02/2019 12:20:58 PM EDT [facility] Name Value Range Interpretation Code Description Data Dominga rce(s) Supporting Document(s) Nursing Note [facility] FYSXOs7cNeMTGxIj94/HVHolWRXva9IzECkfKMh5MKfhHJDrI3AcLNI4mJ9hBWR9ITxPXsExJxEnYCLt lbm [file] 7Gx2MklfL6pxJbCMqsZDetRY0KMMCSA0KHXn== ID Date Data Source [id number] 10/02/2019 11:16:14 AM EDT [facility] Name Value Range Interpretation Code Description Data Dominga rce(s) Supporting Document(s) Nursing Note [facility] XBSFJv3vXoADCnDu13/ODLdoCDWmc2DhCNttDIx2FTfqIDUtI8XuHOC0cJ9iVHP2OIzCUjWrZaGhEWYj lbm [file] E2EhWjND4FBj4OXiY3PBU3xRJiQq3MNkI5ByxHQkEwTS4CBAd= ID Date Data Source [id number] 10/02/2019 11:15:59 AM EDT [facility] Name Value Range Interpretation Code Description Data Dominga rce(s) Supporting Document(s) Nursing Note [facility] JCZHVm7tOiIWMeBr25/OZFfyCJNha1CvWKziOYy7ZUvoNEAvP2SnFKY9iF3aMML5TDpHLdKhKhBnKXCz lbm [file] AcWKNqZuMqGR8RCq4UVdT0UEZ6uTGqDr2COtO9LTCGVpRdBC3ZUUz= ID Date Data Source [id number] 10/02/2019 12:06:00 PM EDT [facility] Name Value Range Interpretation Code Description Data Dominga rce(s) Supporting Document(s) AST 12 IU/L 15-37 Below low normal [facility] Sulfasalazine and sulfapyridine have the potential to falsely depressAspartate Aminotransferase results. Baseline values before medication administration are recommended. ALT 16 IU/L 13-56 Normal (applies to non-numeric resul ts) [facility] Sulfasalazine and sulfapyridine have the potential to falsely depressAlanine Aminotransferase results. Baseline values before medication administration are recommended. Alkaline Phosphatase 135 mIU/ml 50-136 Normal (applies to n on-numeric results) [facility] Total Bilirubin 0.30 mg/dl 0.20-1.00 Normal (applies to non-numeric results) [facility] Blood Urea Nitrogen 10 mg/dl 7-18 Normal (applies to non-nume mary results) [facility] Creatinine 0.59 mg/dl 0.51-0.95 Normal (applies to non-numeric resul ts) [facility] N-Acetylcysteine (NAC) and Metamizole zhang ve the potential to falselydepress Creatinine results. Baseline values before medication adminstration are recommended. Patients undergoing treatment with phenindione will have falselydepressed results. Patients on phenindione therapy should be tested with an alternativeCREA method. Glomerular Filtration Rate >90.00 mL/min/1.73m2 [facility] GFR Reference Ranges:Normal Function or Mild Renal Disease,if clinically at risk:>or= 60Moderately decreased:30 - 59Severely decreased:15 - 29Renal Failure:<15 Please note that the MDRD equation requires an additional adjustment forAfrican-Americans (multiply the GFR result by 1.210).Glomarular Filtration Rate (GFR) is estimated based on the MDRDequation, which assumes a steady state for creatinine (Jennifer Int Med 139/2 137-149, 2003), as recommended by the [employer] Disease Education Program in conjunction with the National Institutes of Health and the National KidneyFoundation. The [place] method used in calculating this result is traceable to IDMT standards. Glucose 130 mg/dl 70-110 Above high normal [facility] Sulfasalazine has the potential to false ly depress Glucose results. Sulfapyridine has the potential to falsely elevate Glucose results. Baseline values before medication administration are recommended. Calcium 9.3 mg/dl 8.5-10.1 Normal (applies to non-numeric resul ts) [facility] Total Protein 6.7 g/dl 6.4-8.2 Normal (applies to non-numeric re sults) [facility] Albumin 2.4 g/dl 3.4-5.0 Below low normal [facility] Sodium 139 mEq/L 136-145 Normal (applies to non-numeric resul ts) [facility] Potassium 4.7 mEq/L 3.5-5.1 Normal (applies to non-numeric resul ts) [facility] Chloride 108.0 mEq/L 98.0-107.0 Above high normal [facility] Anion Gap 11.7 [facility] Carbon Dioxide 24.0 mMol/L 21.0-32.0 Normal (applies to non-numeric results) [facility] The above 16 analytes were performed by [facility] [id number], ,[place] [address] ID Date Data Source [id number] 10/02/2019 12:06:00 PM EDT [facility] Name Value Range Interpretation Code Description Data Dominga rce(s) Supporting Document(s) LDH, Total 163 IU/L 84-246 Normal (applies to non-numeric resul ts) [facility] The above 1 analytes were performed by [facility] [id number], ,[place] [address] ID Date Data Source [id number] 10/02/2019 12:06:00 PM EDT [facility] Name Value Range Interpretation Code Description Data Dominga rce(s) Supporting Document(s) Uric Acid 4.2 mg/dl 2.6-6.0 Normal (applies to non-numeric resul ts) [facility] N-Acetylcysteine (NAC) and Metamizole zhang ve the potential to falselydepress Uric Acid results. Baseline values before medication adminstration are recommended.The above [address] [facility] [id number], ,[place] [address] ID Date Data Source [id number] 10/02/2019 11:42:00 AM EDT [facility] Name Value Range Interpretation Code Description Data Dominga rce(s) Supporting Document(s) WBC 11.54 x1000/ul 4.80-10.00 Above high normal [facility] RBC 4.15 x1Mil/ul 4.20-5.40 Below low normal [facility] Hemoglobin 11.2 g/dl 12.0-16.0 Below low normal [facility] Hematocrit 34.1 % 37.0-47.0 Below low normal [facility] MCV 82.2 fL 81.0-99.0 Normal (applies to non-numeric resul ts) [facility] MCH 27.0 pg 27.0-31.0 Normal (applies to non-numeric resul ts) [facility] MCHC 32.8 g/dl 32.2-37.0 Normal (applies to non-numeric resul ts) [facility] RDW 13.9 % 11.5-14.5 Normal (applies to non-numeric resul ts) [facility] Platelet Count 185 x1000/ul 130-400 Normal (applies to non-numeric results) [facility] MPV 12.0 fL 9.4-12.4 Normal (applies to non-numeric resul ts) [facility] Neutrophils 80.7 % 40.0-74.0 Above high normal [facility] Lymphocytes 13.9 % 19.0-48.0 Below low normal [facility] Monocytes 4.2 % 3.4-9.0 Normal (applies to non-numeric resul ts) [facility] Eosinophils 0.5 % 0.0-7.0 Normal (applies to non-numeric resu lts) [facility] Basophils 0.3 % 0.0-2.0 Normal (applies to non-numeric resul ts) [facility] Immature Granulocytes 0.4 % 0.0-0.5 Normal (applies to non-nu meric results) [facility] Nucleated RBCs 0.00 % 0.00-0.20 Normal (applies to non-numeric r esults) [facility] Abs. Neutrophils 9.31 x1000/ul 1.92-8.31 Above high normal [facility] Abs. Lymphocyte 1.60 x1000/ul 1.20-3.70 Normal (applies to non-n umeric results) [facility] Abs. Monocytes 0.49 x1000/ul 0.14-0.97 Normal (applies to non-nu meric results) [facility] Abs. Eosinophils 0.06 x1000/ul 0.00-0.76 Normal (applie s to non-numeric results) [facility] Abs. Basophils 0.03 x1000/ul 0.00-0.22 Normal (applies to non-n umeric results) [facility] Abs. Immature Gran. 0.05 x1000/ul 0.00-0.02 Above high normal [facility] Abs. Nucleated RBCs 0.00 x1000/ul 0.00-0.02 Normal (appl ies to non-numeric results) [facility] The above 24 analytes were performed by [place] [id number], ,[place] [address] ID Date Data Source [id number] 10/02/2019 11:21:00 AM EDT [facility] Name Value Range Interpretation Code Description Data Dominga rce(s) Supporting Document(s) Urine Color Light-Yellow Light-Yellow,Yellow Normal (appl ies to non-numeric results) [facility] Urine Appearance HAZY CLEAR Abnormal (applies to non-numer ic results) [facility] Urine Specific Hext 1.013 1.015-1.025 Below low normal [facility] Urine pH 6.0 5.0-7.0 Normal (applies to non-numeric resul ts) [facility] Urine Protein NEG NEG Normal (applies to non-numeric re sults) [facility] Urine Glucose NEG NEG Normal (applies to non-numeric re sults) [facility] Urine Ketone NEG NEG Normal (applies to non-numeric res ults) [facility] Urine Bilirubin NEG NEG Normal (applies to non-numeric results) [facility] Urine Blood NEG NEG Normal (applies to non-numeric resu lts) [facility] Urine Urobilinogen NORM <0.2,1.0,<2.0,0.2 Abnormal (a pplies to non-numeric results) [facility] Urine Leukocyte Esterase NEG NEG Normal (applies to non -numeric results) [facility] Urine Nitrite NEG NEG Normal (applies to non-numeric re sults) [facility] The above 12 analytes were performed by [facility]'s [id number], ,[place] [address] ID Date Data Source [id number] 10/01/2019 11:58:36 AM EDT [facility] Name Value Range Interpretation Code Description Data Dominga rce(s) Supporting Document(s) Progress Notes [facility] BUPIZn8nJsNXPnMk48/OTEmjTUPqx2UcBFmfNQy0UNrnQYPdL3XvWXO4oM4qLKC7LZmJPqYbLjKtCSX9 [facility] [file] [id number]== ID Date Data Source [id number] 09/29/2019 03:10:25 PM EDT [facility] Patient: MEENU BLAKE : 1990 MR N: [id number] [facility] ULTRASOUND BIOPHYSICAL PROFILE WITH NON STRESS TEST Provider: YUMIKO PICKENS OBSTETRICAL SONOGRAMCLINICAL HISTORY: Proteinuria, maternal hypertension TECHNIQUE: Limited transabdominal obstetrical sonogram was performed.COMPARISON: September 25, 2019FINDINGS:There is a single intrauterine gestation in cephalic presentation. cardiac activity is seen at 177 beats per minute.The placenta is located posterior grade 2 . There is no placenta previa.Biophysical profile: With points for fine finger movements, gross bodymovements, continuous breathing, and appropriate amniotic fluid volume, thebiophysical profile is 8 at 8. MARIELA: The MARIELA is 17.7 cm. IMPRESSION: IMPRESSION : BIOPHYSICAL PROFILE IS 8 OUT OF 8. CARDIAC ACTIVITY ASABOVE. OTHER FINDINGS ABOVE.Report edited for Nasim Goodrich 09/29/2019 1:56 PM Electronically Signed by Nasim Goodrich 09/29/2019 3:10 PM Name Value Range Interpretation Code Description Data Dominga rce(s) Supporting Document(s) ID Date Data Source [id number] 09/29/2019 02:37:37 PM EDT [facility] Name Value Range Interpretation Code Description Data Dominga rce(s) Supporting Document(s) Progress Notes [facility] VAVGSt9bEjXXTdGw12/WVSxzHKMmp0VcTOqxLUm8ABkeACKnB4PkRBR1kM8bWQW8RQaNFdDlYoJcWHP2 lbm [file] [id number]+[id number]+Of2Il1FrxeH2wvPrFZltFnY3GI2AVIVRJ1VUSj== ID Date Data Source [id number] 10/02/2019 06:39:00 AM EDT [facility] Name Value Range Interpretation Code Description Data Dominga rce(s) Supporting Document(s) Amphetamine-by GC/MS Negative ng/mL Cutoff: 25 Normal (jim lies to non-numeric results) [facility] Phentermine-by GC/MS Negative ng/mL Cutoff: 25 Normal (jim lies to non-numeric results) [facility] Methamphetamine-by GC/MS Negative ng/mL Cutoff: 25 Normal (applies to non- numeric results) [facility] Pseudoephedrine-by GC/MS Negative ng/mL Cutoff: 25 Normal (applies to non- numeric results) [facility] MDA (Ecstasy metabolite)-by GC/MS Negative ng/mL Cutoff: 25 Normal (applies to non-numeric results) [facility] MDMA (Ecstasy)-by GC/MS Negative ng/mL Cutoff: 25 Normal ( applies to non-numeric results) [facility] Interpretation Negative. [facility] ADDITIONAL INFORMATIO N This report is intended for use in clinical monitoring andmanagement of patients. It is not intended for use inemployment-related testing.This test was developed and its performance characteristicsdetermined by [facility] in a manner consistent with CLIArequirements. This test has not been cleared or approved bythe U.S. Food and Drug Administration.Test Performed by:[facility] [place] [id number] Director: Live Rodriguez M.D. Ph.D.; CLIA# [id number] above 7 analytes were performed by [facility] ([id number]) ID Date Data Source [id number] 10/02/2019 06:38:00 AM EDT [facility] Name Value Range Interpretation Code Description Data Dominga rce(s) Supporting Document(s) Alcohol Negative mg/dL Cutoff: 10 Normal (applies to non-numeric r esults) [facility] Amphetamines Presumptive Positive ng/mL Cutoff: 500 Abnor mal (applies to non- numeric results) [facility] Drug confirmation to follow. Presumptiv e Positive meansthat the screening method is positive, but the test needsto be run by a confirmatory method before being finalized. Barbiturates Negative ng/mL Cutoff: 200 Normal (applies to non-num yevgeniy results) [facility] Benzodiazepines Negative ng/mL Cutoff: 100 Normal (applies to non-numeric results) [facility] Cocaine Negative ng/mL Cutoff: 150 Normal (applies to non-numeric results) [facility] Methadone Negative ng/mL Cutoff: 300 Normal (applies to non-numeric results) [facility] Opiates Negative ng/mL Cutoff: 300 Normal (applies to non-numeric results) [facility] Phencyclidine Negative ng/mL Cutoff: 25 Normal (applies to non-nu meric results) [facility] Tetrahydrocannabinol Negative ng/mL Cutoff: 50 Normal (jim lies to non-numeric results) [facility] ADDITIONAL INFORMATIO N This report is intended for use in clinical monitoring ormanagement of patients. It is not intended for use inemployment-related testing.This test has been modified from the manager front'sinstructions. Its performance characteristics weredetermined by [facility] in a manner consistent with CLIArequirements. This test has not been cleared or approved bythe U.S. Food and Drug Administration.Test Performed by:[address] [id number] Director: Live Rodriguez M.D. Ph.D.; CLIA# [id number] above 9 analytes were performed by [facility] [employer] ([id number]) ID Date Data Source [id number] 09/30/2019 01:25:00 PM EDT [facility] Name Value Range Interpretation Code Description Data Dominga rce(s) Supporting Document(s) T. Pallidum Result Nonreactive Nonreactive Normal (appli es to non-numeric results) [facility] Results were obained with the IMMULITE X PI Syphilis Screenchemiluminescent EIA. Results from other manfacturers' assay method maynot be used interchangeably.The above 1 analytes were performed by [facility] [id number] [place] [address], ,[place] [address] ID Date Data Source [id number] 09/30/2019 11:03:00 AM EDT [facility] Name Value Range Interpretation Code Description Data Dominga rce(s) Supporting Document(s) Trichomonas vaginalis Negative Negative Normal (applies to non-numeric results) [facility] Test results may be affected by improper specimen collection. Anegative test result does not exclude the possibility ofvaginitis/vaginosis. Gardnerella vaginalis Negative Negative Normal (applies to non-numeric results) [facility] Clarisse Species Negative Negative Normal (applies to non-numeric results) [facility] The above 3 analytes were performed by [facility] [id number], ,[place] [address] ID Date Data Source [id number] 09/30/2019 09:28:00 AM EDT [facility] Name Value Range Interpretation Code Description Data Dominga rce(s) Supporting Document(s) Strep B PCR Positive Negative Very abnormal (applies to non-numer ic units [facility] FAXSED TO OB CLINICThe above 1 analytes were performed by [id number], ,[place] [address] ID Date Data Source [id number] 09/29/2019 11:17:00 PM EDT [facility] Name Value Range Interpretation Code Description Data Dominga rce(s) Supporting Document(s) Source Endocervical [facility] Chlamydia trachomatis, DNA \\Not Detected \\Not Detected Ruby l (applies to non- numeric results) [facility] Neisseria gonorrhoeae, DNA \\Not Detected \\Not Detected Ruby l (applies to non- numeric results) [facility] The above 3 analytes were performed by Erin leah Soliz [address], ,[place] [address] ID Date Data Source [id number] 09/29/2019 06:12:00 PM EDT [facility] Name Value Range Interpretation Code Description Data Dominga rce(s) Supporting Document(s) HIV 1&2 Ab/Ag, Screen Nonreactive Nonreactive Normal (ap plies to non-numeric results) [facility] Initially reactive results will be sent to the reference laboratory forconfirmation.HIV 1/2 antibody/antigen testing performed by immunoassay on the [facility].The above 1 analytes were performed by [facility] [id number] [place] [address], ,[place] [address] ID Date Data Source [id number] 09/29/2019 03:54:00 PM EDT [facility] Name Value Range Interpretation Code Description Data Dominga rce(s) Supporting Document(s) WBC 12.27 x1000/ul 4.80-10.00 Above high normal [facility] RBC 4.33 x1Mil/ul 4.20-5.40 Normal (applies to non-numeric re sults) [facility] Hemoglobin 11.8 g/dl 12.0-16.0 Below low normal [facility] Hematocrit 35.6 % 37.0-47.0 Below low normal [facility] MCV 82.2 fL 81.0-99.0 Normal (applies to non-numeric resul ts) [facility] MCH 27.3 pg 27.0-31.0 Normal (applies to non-numeric resul ts) [facility] MCHC 33.1 g/dl 32.2-37.0 Normal (applies to non-numeric resul ts) [facility] RDW 13.7 % 11.5-14.5 Normal (applies to non-numeric resul ts) [facility] Platelet Count 194 x1000/ul 130-400 Normal (applies to non-numeric results) [facility] MPV 12.2 fL 9.4-12.4 Normal (applies to non-numeric resul ts) [facility] Nucleated RBCs 0.00 % 0.00-0.20 Normal (applies to non-numeric r esults) [facility] Abs. Nucleated RBCs 0.00 x1000/ul 0.00-0.02 Normal (appl ies to non-numeric results) [facility] The above 12 analytes were performed by [facility] [place] [id number], ,[place] [address] ID Date Data Source [id number] 09/29/2019 02:23:16 PM EDT [facility] Name Value Range Interpretation Code Description Data Dominga rce(s) Supporting Document(s) Progress Notes [facility] DHRRNn3oBcPLOdPd95/IYUlfCKGky7DaBNeqTJy6FHpoRLIvQ6NlLDP4hY7bVTS6YXpUEvDwDrIsVBW3 [facility] [file] [id number]N2HNMb== ID Date Data Source [id number] 09/29/2019 02:23:11 PM EDT [facility] Name Value Range Interpretation Code Description Data Dominga rce(s) Supporting Document(s) Progress Notes [facility] LFFLAw9qQqTTSkJf11/NAFteLOGge2FcGXgaSRf4XAizQBAtO5UdCWF3sA3pMAK0MXcJYoVzZjWoDJD9 lbm [file] ICAgICAgICAgICAgICAgICAgICAgICAgICAgICAgIC LkAKMjTLHcURHhEVVxXTMpLRQxMOXrJNQmYQCmZTPhNNYsGQSuUVOkKAKvCLIbBVZzYYGpAJExTH3LDQ AgICAgICAgICAgICAgICAgICAgICAgICAgICAgICAgICAgICAgICAgICAgICAgICAgICAgICAgICAgIC AgICAgICAgICAgICAgICAgICAgICAgICAgICAgICAg YZWrKVOjNH7KJHPeUWIyLWKzNBOnXYGnCDDuEUZyBICjSQOtYPVfQQRpYSKuTCFnYYTtXCMjBQZrDVCv UNLcQBEqRWRqPGJjYJMoJBFbLORbLUOhQUYzEEQcBESdZGUuUEOhNKQeZSPaRZFfAP4ROEHfYOHnHQDt ICAgICAgICAgICAgICAgICAgICAgICAgICAgICAgIC AgICAgICAgICAgICAgICAgICAgICAgICAgICAgICAgICAgICAgICAgICAgICAgICAgICAgICAgICAgIA 0KICAgICAgICAgICAgICAgICAgICAgICAgICAgICAgICAgICAgICAgICAgICAgICAgICAgICAgICAgIC AgICAgICAgICAgICAgICAgICAgICAgICAgICAgICAg ATEpAZHkJASmRD7YWGKaGYQxTULoOAGtCKClDKAmNYIsNYRjPKIwMVXvLWVdHIRjRVQcJONwBEAsZLEp WEOzRRPyLBAvRYKeIRIgHHGyYMYxVTNbJGWfDTGsWTCyDKBxCKAhMUIdNLVlXMGbLECmPV6LUPAxBLXv ICAgICAgICAgICAgICAgICAgICAgICAgICAgICAgIC AgICAgICAgICAgICAgICAgICAgICAgICAgICAgICAgICAgICAgICAgICAgICAgICAgICAgICAgICAgIC FaEI9ZWZHvGLRsNHQnZATcRSJgESJcJQZgETZdVSQpLZLkUDVjITFaCDZzPVWuEOQdNKQoCIBmIBQsPG AgICAgICAgICAgICAgICAgICAgICAgICAgICAgICAg SFCzGOZyDXRmOFLuDN4XRPLvLJKxXCWfFFHvGKRmGCUbJRKiXUKaTECyLPAmVRUwJVHcWIXrKPRmSIPm PMTeKYVxJNRyKKTjBYPoDDZkWTGkMZQsDZQkLGJnXONoIPEgGPSvSHKvYPUgLEBbQGCcZWYfBF5VWJAw ICAgICAgICAgICAgICAgICAgICAgICAgICAgICAgIC AgICAgICAgICAgICAgICAgICAgICAgICAgICAgICAgICAgICAgICAgICAgICAgICAgICAgICAgICAgIC FoBFJeNN8XGF84rMGud7H3OOGfRP1lsfe/Sg4GJRscveWccHTiCR6SAxPsXA5adr0CIcAoAU7pzm2UGH xOTgEsV0M9gZTgVMMgEWFFDqIjJ02qBUrdMn33AMnk DFQdMzTxVYu2Ff9LSaXfF1glAXRsPvP4BJTwEpHwGLolGX4Wq2VrzPYiEJj+Ka3MLO1iw9OqFYsuIeTn FK1fdi3CXQhGVdEmW2NuwuV8BXUaKSQdEr7VYYHwQJMhaVBjSqSsMQCGRfZpN1JugP20FFLVQb5+DQpl yiZbUkaQIuFiSCNud9PoNAy9FC3RZMEcXIw4rIVvGQ HqZ0Njb2GsOh79QKWrZxqkS3W4uEsmAXVxbrocUr1nLKFrWO9cLb6aETOlQPSpOcTcPDVIKX0SUZQkZS MdqLVsXSLiRDUELX6DIRnuPGY8WeerhcSjgFLuSXgsFV4YOQHhgrHuSeLbSDAYLEl+Wl8LUC7eo8LhOV xjGNKgQU6wse8MGLpTKmAkR5I8gHOtP1L9XEqsTp7N TSQeJKTsTwHdAHCGKPdyXS7NZN4fjlN5XK7GlEXfAMNpAZDbeRCdFUu7L82soAFwPTpcTX6AFOQ+Lily+ Yr0TDVCnZLIvELSuFbBvMGRQWbXpM6YkI8FZh1KhE5ObVA88aUsqhtIrBUmhQC7LJK0aPWHdVQGQGN8D bVIwmP1riiEmCsAcISJABkWnY41pxZBeZZGgSVElSY FqDe6SIODkM1DfhjFpgFqqwhIpDMZzKGKSYY2LQTaromJxfDNsqRsvUW97wLsxJD4RFa8UJeQeVX9rqw 3HyTRiOu8LQZPcXM0PZBXzFIDlTOPiHEY9FOZyJdMqRLnhZGGbKMWmUYF5HNSpCZZmCK2AKdVnFLLsSQ w6ZoOaMPGkXAFxny3KZJAvAIPgGIH4BOKrWKVgLPDi IKuoZWZqGIGmXMK9XNJdFUJdLW3QJkIdBKMyUEOzVRpxJDIzPULwim8HAVIvPHRfLTF9BRZrSJGuDRMz IKtsEUZvULMqTgW3ROMdYDLtBZ2CPtPwUKUvYAY7TcMdIWSoDAAawh5IXEPjCIHsTsRxKHVgQBAsKITd KVzkSPCxNYHrHMW2SIKcLIKfMS3OUgNtWZToFLH9Uk YlCUIdWWZbki2ZBAAkVYBuJnq0OqGmNDPbOOSuPEhoYMQcLAK5BorwVBIzSTXrOP2NFcAeELWqSNP2ZM kaCKAkFAHzcx4MGYSzRYBvZwyyJoRaMGWxAMJaVFzdCQZxVOH5YXG9FTYwONFhQL1TXeFgKAMrVLrqHI TdJEAuZHTfae0CLPWuMOQrPDZ9NWQvFBOhLOFyWLrh IEVqQIW3EyHkJXMqGTYmJT0FJlRtNQDqNSm9OXCrSMEfEDWqsk3LEFVsAFIdIYiuKKIiSIBmPKOqILpe HMCrZLViOpD1OZPzBKCqSW5KEaXsTJUeLuP1BmhzGCClAEPgtz8PTHWrEZNfETE1EsUrPEHsITVzXQs2 adYooRSyGGk3HN8US2PtafSdVyKJYt4Zl471HMD7WZ HqBc7CQ9crXf5uCJPkUGOYQe7POVx5HcsjCmJaJpF6FXciFzv4NzOpLqh2BUtcA0X9DVOiRJH+IDwyOG SwARMnAOuvNFUhGmCpE1SvKOaaOIO2MVQ4S7J5Wk5fHJYJKn1+TKzagYXnmUsqMAVWSxOiEAS0HMomQI VPRg0K ID Date Data Source [id number] 09/29/2019 07:03:33 AM EDT [facility] Name Value Range Interpretation Code Description Data Dominga rce(s) Supporting Document(s) Telephone Encounter [facility] CYSYFp0eXrFWVgEf11/HBVqtFNEml4QvGKbqTFh1QLieMGMmO8XdFQX4nS6mYZC1UPrYNjQoKoXjDGK2 lbm ApPrfSShQjUFHkMbsKDhYuMEdyUyahsRJdCW9WkET2DBOeU83xRASxXLWgN9WoPIojZq5+YQnhNPR7hx BffL9MWOI8T4ye0nSUwkxwz6lcYhBXIPnhSyVzMJVYoPIW+Wk5CGhQAscHL7bj27h+Py8y2PkdSF88s6 fhl6o4AdpVxG7+E4dnMtwx/2Nb4IsaFsC6T5EdHctn Va+BEgiEgGUdE3FeAeh8TwncRFRXU84VYm32PXJXyCgQFw1ASNHsoJd2hpga0XTJoqM52sFitlQAB/Joanna [file] XsMRY0OMGnYoCaPH2GPg4NFuT1SBZ3hTDlBz4ASbE7NaJWBdTkNA1VVUc= ID Date Data Source [id number] 09/28/2019 12:39:19 PM EDT [facility] Name Value Range Interpretation Code Description Data Dominga rce(s) Supporting Document(s) Progress Notes [facility] FNKUFg6yKyKABwAy16/JEJdoJYLlk7UqPFcoPRc8GOosQOGiU6PhBSH1zM6wLES4GOyKZfZaAkUsMZO2 lbm [file] ICAgICAgICAgICAgICAgICAgICAgICAgICAgICAgICAgICAgICAgICAgICAgICAgDQogICAgICAgICAg ICAgICAgICAgICAgICAgICAgICAgICAgICAgICAgIC AgICAgICAgICAgICAgICAgICAgICAgICAgICAgICAgICAgICAgICAgICAgICAgICAgICAgICAgICAgDQ ogICAgICAgICAgICAgICAgICAgICAgICAgICAgICAgICAgICAgICAgICAgICAgICAgICAgICAgICAgIC AgICAgICAgICAgICAgICAgICAgICAgICAgICAgICAg ICAgICAgICAgDQogICAgICAgICAgICAgICAgICAgICAgICAgICAgICAgICAgICAgICAgICAgICAgICAg ICAgICAgICAgICAgICAgICAgICAgICAgICAgICAgICAgICAgICAgICAgICAgICAgICAgDQogICAgICAg ICAgICAgICAgICAgICAgICAgICAgICAgICAgICAgIC AgICAgICAgICAgICAgICAgICAgICAgICAgICAgICAgICAgICAgICAgICAgICAgICAgICAgICAgICAgIC AgDQogICAgICAgICAgICAgICAgICAgICAgICAgICAgICAgICAgICAgICAgICAgICAgICAgICAgICAgIC AgICAgICAgICAgICAgICAgICAgICAgICAgICAgICAg ICAgICAgICAgICAgDQogICAgICAgICAgICAgICAgICAgICAgICAgICAgICAgICAgICAgICAgICAgICAg ICAgICAgICAgICAgICAgICAgICAgICAgICAgICAgICAgICAgICAgICAgICAgICAgICAgICAgDQogICAg ICAgICAgICAgICAgICAgICAgICAgICAgICAgICAgIC AgICAgICAgICAgICAgICAgICAgICAgICAgICAgICAgICAgICAgICAgICAgICAgICAgICAgICAgICAgIC AgICAgDQogICAgICAgICAgICAgICAgICAgICAgICAgICAgICAgICAgICAgICAgICAgICAgICAgICAgIC AgICAgICAgICAgICAgICAgICAgICAgICAgICAgICAg ICAgICAgICAgICAgICAgDQogICAgICAgICAgICAgICAgICAgICAgICAgICAgICAgICAgICAgICAgICAg ICAgICAgICAgICAgICAgICAgICAgICAgICAgICAgICAgICAgICAgICAgICAgICAgICAgICAgICAgDQo8 N9iaMQHgCACjME3uCZm5Ml0+HNhZJdLcBAJ8diStwL 3LCD4nt6LlBMthBIBgf6AjTFs2EU1VTXJsZKsmNX1CTVthhz9NMMPpQZQftSWGk0iqWzVfQYJ5MYZtGf gwUN8PYONtH8hgdlOwPLSvKDPVIF0VZsIqK7MgdB29WDTKAw6+GNjzhcYwIwqRUnFiOXAhn9MqZQi8LL 1VJVFdCtcis1BcOmObASKUVWsaOF2CTRM8PESxAZTk Qw5XUBMmK660doEyCS7VZp0XUbZyDU8ekh1RBxOxNIExYurNShl3UIibZO5QzYVgQCjYiu2eufFuaoGS w9SrpwTrtBAKCOH7WLneY6caJJzrYsIkseZiTWBTXdRwnGU9BlGyGgUaRkPhHYJ5SPYqMU6eDGjnKM1K BCN0XLudGBFaSCPjE3wVFeMvYSjbUDMatLyrBZ6TVw DeD4PbvbZeuQFzOnCkHXTHWy3+EVqpruUdUluWTbW1RUOfr1DiSXi2YZ2LXSWnKZnxWW0YDBLuvC1oVX hpOR4APxWaRUXaCJTHVxNbG90niVLmELw4S0QiScEeQJGiRfayFMLbZFmzFjYqBXVuBjKyMWnaOJ9+ID 4+AHexZA9OOPbjaxSnDSGuEo3GLRJaXJQsBY9iRHYg MNArJ5F0jUboDHBBShQxD4zerzolCF1sFRZaA408cMsqaaCnXFHyNLExGj3GUXWdOXB9NYQadFZcPwRq RDUKEWihWU7AeCRaHRW4zE8zIWllKTMtKDFyE3kTWoNqpDczBR40qOuobgEidKBsTIz+Ab7ANF5vs7Ln GVt3ufRvQPjrPHD6QQadBQZgUOXyEGScKNR6YFZ6NQ FQTcFiWDWdSRGlPWyzOSHwGRDbrl7ECAUqZBLtRFOwDXNgXIKyBPIsIJjuFZIrTGPxWFF4GZNbTIQtNT 6XCyAnSTPhJHMaULizUHBoJGHssj9KNDRtBXUbWMp9SiJkLMEfIUGiHDnnHRWdJGYnUYGkRCSvPURvSH 5EIcOsKMVvIDTlBRucUYOvNZSrkr1TCTLrEMTvOyAb LTBcIQBxKSRjVBjiOPPfGIUeIXN8SHVjIBFeEW9XPpOvNEAgITQ0FiIgHKTyHQGibb6YZVZzLJXrFoZ5 JMZhZBCaXGIoCHwbXSNuNNGcLWIqNRUbOCWqTH3BYeRvXRTlQGWxQRGvFYTdRFXkwo1CLHDeFNWhHlEx XQLzFZFzTONkJXpxWCMlKVO2ElB1MREjAIAiDD2VUv ZcLWFeSAD0ETvoPUWfUMHfdw6YQYGbWGIsUbRlPqOzGOLmYRRjSZpvDRIhGWY7PTR6YDZzCWEhFC9BJf QmSTXbWWwgXyOnQUSwFHBtlo5GSAMcIKQiCKHcTnWmGPPhDJDpYOsqOWHmSKA6ZET2AOLdKMFgIU7UNe NaCIMmHcMfJBsrTPPiVUJchw6GTPMdFNSpEJCgKQXc CFWpCWNaQGyrBQWkBEAaSAsfPLZxCYMhDN1DFwVmVDefOZXDAfg4LWjxX0v4ILGmJZ8CP3Fkr2ThWvIc PISRVVqfTS6xgxEmDYXqNq2PO9pHWbhkJqI0ELN7ZDGtQxVgSqHoWgxcLXw2HYosVIjwKoXlKP3pYSV6 KLIvSIWfFFMkOeUzQqIeVEX7ZckdSLI2Y6AoFQRrTq VaEW2MOp9LGwS0NNO4rHXkGe7ZNrM0WzOCUuLkBG1NYPs= ID Date Data Source [id number] 09/25/2019 10:56:07 AM EDT [facility] Patient: MEENU BLAKE : 1990 MR N: [id number] [facility]LLOW [facility]/ONE TIME BIOPHYSICAL PROFILE WITH NON STRESS TEST Provider: ALLA ROCKHISTORY:29 year-old female with hypertension, for evaluation of fetalgrowth and biophysical profile. Clinical estimated gestational age of 35 weeksand 1 day.TECHNIQUE: Multiple static images from real-time, transabdominal obstetricalultrasound are submitted.ENCOUNTER: Subsequent.COMPARISON:09/19/2019FINDINGS: Examination limited by large maternal body habitus. A singleintrauterine gestation is identified. The fetus is currently in cephalicpresentation. Normal body movement, respiratory movement, tone andcardiac activity are observed, with a heart rate of approximately 147beats per minute. There is a normal amount of amniotic fluid present, with afour-quadrant MARIELA measuring 14.3 cm. The placenta is posterior in location,with no low lying placenta or placenta previa. Normal-appearing spine, 4 chambered heart, gastric bubble, kidneys, andurinary bladder are visualized. Remaining portions of anatomysuboptimally visualized due to the advanced gestational age, position, andlimitations of maternal body habitus.Please see accompanying data sheets for growth parameters. Based upon thesedata, the EGA is 36 weeks and 3 days, and EFW 3019 g (+/- 441 g).IMPRESSION: 1. Single, live intrauterine gestation at 36 weeks and 3 days. Additionalgrowth parameters, as noted above.2. Biophysical profile 01/09.3. Examination slightly limited by maternal body habitus.Electronically Signed by Rosalino Perez MD 09/25/2019 10:56 AM Name Value Range Interpretation Code Description Data Dominga rce(s) Supporting Document(s) ID Date Data Source [id number] 09/22/2019 01:08:32 PM EDT [facility] Name Value Range Interpretation Code Description Data Dominga rce(s) Supporting Document(s) Progress Notes [facility] DZPJVj5lCjKUFuPv07/HSSvmBPYqh7QyLNhfXPr7OHdcHRJoY4QsROM5iF7rWNJ7MPgKRqEwBgMsICEo [facility] [file] [id number]Cr2GRwR4IyLWCoTyPW6OBMy= ID Date Data Source [id number] 09/22/2019 06:18:00 PM EDT [facility] Name Value Range Interpretation Code Description Data Dominga rce(s) Supporting Document(s) Urine Creatinine 226.00 mg/dl [facility] Random Urine SpecimenThe above 1 analyte s were performed by [facility] [address] [place] [address],[facility] [id number],[place] [address] ID Date Data Source [id number] 09/22/2019 06:18:00 PM EDT [facility] Name Value Range Interpretation Code Description Data Dominga rce(s) Supporting Document(s) Urine Total Protein 30.5 mg/dl 0.0-11.9 Above high normal [facility] Random Urine SpecimenThe above 1 analyte s were performed by [facility] [address] [place] [address], ,[place] [address] ID Date Data Source [id number] 09/22/2019 01:50:00 PM EDT [facility] Name Value Range Interpretation Code Description Data Dominga rce(s) Supporting Document(s) Uric Acid 4.4 mg/dl 2.6-6.0 Normal (applies to non-numeric resul ts) [facility] N-Acetylcysteine (NAC) and Metamizole zhang ve the potential to falselydepress Uric Acid results. Baseline values before medication adminstration are recommended.The above 1 analytes were performed by [facility] [id number] [place] [address], ,[place] [address] ID Date Data Source [id number] 09/22/2019 01:50:00 PM EDT [facility] Name Value Range Interpretation Code Description Data Dominga rce(s) Supporting Document(s) AST 13 IU/L 15-37 Below low normal [facility] Sulfasalazine and sulfapyridine have the potential to falsely depressAspartate Aminotransferase results. Baseline values before medication administration are recommended. ALT 19 IU/L 13-56 Normal (applies to non-numeric resul ts) [facility] Sulfasalazine and sulfapyridine have the potential to falsely depressAlanine Aminotransferase results. Baseline values before medication administration are recommended. Alkaline Phosphatase 138 mIU/ml 50-136 Above high normal [facility] Total Bilirubin 0.20 mg/dl 0.20-1.00 Normal (applies to non-numeric results) [facility] Blood Urea Nitrogen 9 mg/dl 7-18 Normal (applies to non-nume mary results) [facility] Creatinine 0.69 mg/dl 0.51-0.95 Normal (applies to non-numeric resul ts) [facility] N-Acetylcysteine (NAC) and Metamizole zhang ve the potential to falselydepress Creatinine results. Baseline values before medication adminstration are recommended. Patients undergoing treatment with phenindione will have falselydepressed results. Patients on phenindione therapy should be tested with an alternativeCREA method. Glomerular Filtration Rate >90.00 mL/min/1.73m2 [facility] GFR Reference Ranges:Normal Function or Mild Renal Disease,if clinically at risk:>or= 60Moderately decreased:30 - 59Severely decreased:15 - 29Renal Failure:<15 Please note that the MDRD equation requires an additional adjustment forAfrican-Americans (multiply the GFR result by 1.210).Glomarular Filtration Rate (GFR) is estimated based on the MDRDequation, which assumes a steady state for creatinine (Jennifer Int Med 139/2 137-149, 2003), as recommended by the NationalKidney Disease Education Program in conjunction with the National Institutes of Health and the National KidneyFoundation. The [place] method used in calculating this result is traceable to IDMS standards. Glucose 102 mg/dl 70-110 Normal (applies to non-numeric resul ts) [facility] Sulfasalazine has the potential to false ly depress Glucose results. Sulfapyridine has the potential to falsely elevate Glucose results. Baseline values before medication administration are recommended. Calcium 9.1 mg/dl 8.5-10.1 Normal (applies to non-numeric resul ts) [facility] Total Protein 6.4 g/dl 6.4-8.2 Normal (applies to non-numeric re sults) [facility] Albumin 2.5 g/dl 3.4-5.0 Below low normal [facility] Sodium 140 mEq/L 136-145 Normal (applies to non-numeric resul ts) [facility] Potassium 5.0 mEq/L 3.5-5.1 Normal (applies to non-numeric resul ts) [facility] Chloride 110.0 mEq/L 98.0-107.0 Above high normal [facility] Carbon Dioxide 24.5 mMol/L 21.0-32.0 Normal (applies to non-numeric results) [facility] Anion Gap 10.5 [facility] The above 16 analytes were performed by [facility] [id number] [place] [address], ,[place] [address] ID Date Data Source [id number] 09/22/2019 01:50:00 PM EDT [facility] Name Value Range Interpretation Code Description Data Dominga rce(s) Supporting Document(s) LDH, Total 173 IU/L 84-246 Normal (applies to non-numeric resul ts) [facility] The above 1 analytes were [facility] [id number] [place] [address], ,[place] [address] ID Date Data Source [id number] 09/22/2019 01:48:00 PM EDT [facility] Name Value Range Interpretation Code Description Data Dominga rce(s) Supporting Document(s) WBC 13.08 x1000/ul 4.80-10.00 Above high normal [facility] RBC 4.55 x1Mil/ul 4.20-5.40 Normal (applies to non-numeric re sults) [facility] Hemoglobin 12.1 g/dl 12.0-16.0 Normal (applies to non-numeric resul ts) [facility] Hematocrit 37.6 % 37.0-47.0 Normal (applies to non-numeric resul ts) [facility] MCV 82.6 fL 81.0-99.0 Normal (applies to non-numeric resul ts) [facility] MCH 26.6 pg 27.0-31.0 Below low normal [facility] MCHC 32.2 g/dl 32.2-37.0 Normal (applies to non-numeric resul ts) [facility] RDW 13.7 % 11.5-14.5 Normal (applies to non-numeric resul ts) [facility] Platelet Count 185 x1000/ul 130-400 Normal (applies to non-numeric results) [facility] MPV 12.2 fL 9.4-12.4 Normal (applies to non-numeric resul ts) [facility] Neutrophils 77.5 % 40.0-74.0 Above high normal [facility] Lymphocytes 15.4 % 19.0-48.0 Below low normal [facility] Monocytes 5.6 % 3.4-9.0 Normal (applies to non-numeric resul ts) [facility] Eosinophils 0.6 % 0.0-7.0 Normal (applies to non-numeric resu lts) [facility] Basophils 0.2 % 0.0-2.0 Normal (applies to non-numeric resul ts) [facility] Immature Granulocytes 0.7 % 0.0-0.5 Above high normal [facility] Nucleated RBCs 0.00 % 0.00-0.20 Normal (applies to non-numeric r esults) [facility] Abs. Neutrophils 10.13 x1000/ul 1.92-8.31 Above high normal [facility] Abs. Lymphocyte 2.02 x1000/ul 1.20-3.70 Normal (applies to non-n umeric results) [facility] Abs. Monocytes 0.73 x1000/ul 0.14-0.97 Normal (applies to non-nu meric results) [facility] Abs. Eosinophils 0.08 x1000/ul 0.00-0.76 Normal (applie s to non-numeric results) [facility] Abs. Basophils 0.03 x1000/ul 0.00-0.22 Normal (applies to non-n umeric results) [facility] Abs. Immature Gran. 0.09 x1000/ul 0.00-0.02 Above high normal [facility] Abs. Nucleated RBCs 0.00 x1000/ul 0.00-0.02 Normal (appl ies to non-numeric results) [facility] The above 24 analytes were performed by [facility] [id number] [place] [address],[facility] [id number],[place] [address] ID Date Data Source [id number] 09/22/2019 09:36:48 AM EDT [facility] Name Value Range Interpretation Code Description Data Dominga rce(s) Supporting Document(s) Progress Notes [facility] LZBSGn1tEeLSGvMc69/LYSegFMPwf2RgFNbfGYk3RHnlNRZuR8DgEAH6rG0iQIS6JQwZDoTtFfFqZYCa lbm [file] ICAgICAgICAgICAgICAgICAgICAgICAgICAgICAgIC AgICAgICAgICAgICAgICAgICANCiAgICAgICAgICAgICAgICAgICAgICAgICAgICAgICAgICAgICAgIC AgICAgICAgICAgICAgICAgICAgICAgICAgICAgICAgICAgICAgICAgICAgICAgICAgICAgICAgICAgIC ANCiAgICAgICAgICAgICAgICAgICAgICAgICAgICAg ICAgICAgICAgICAgICAgICAgICAgICAgICAgICAgICAgICAgICAgICAgICAgICAgICAgICAgICAgICAg ICAgICAgICAgICANCiAgICAgICAgICAgICAgICAgICAgICAgICAgICAgICAgICAgICAgICAgICAgICAg ICAgICAgICAgICAgICAgICAgICAgICAgICAgICAgIC AgICAgICAgICAgICAgICAgICAgICANCiAgICAgICAgICAgICAgICAgICAgICAgICAgICAgICAgICAgIC AgICAgICAgICAgICAgICAgICAgICAgICAgICAgICAgICAgICAgICAgICAgICAgICAgICAgICAgICAgIC AgICANCiAgICAgICAgICAgICAgICAgICAgICAgICAg ICAgICAgICAgICAgICAgICAgICAgICAgICAgICAgICAgICAgICAgICAgICAgICAgICAgICAgICAgICAg ICAgICAgICAgICAgICANCiAgICAgICAgICAgICAgICAgICAgICAgICAgICAgICAgICAgICAgICAgICAg ICAgICAgICAgICAgICAgICAgICAgICAgICAgICAgIC AgICAgICAgICAgICAgICAgICAgICAgICANCiAgICAgICAgICAgICAgICAgICAgICAgICAgICAgICAgIC AgICAgICAgICAgICAgICAgICAgICAgICAgICAgICAgICAgICAgICAgICAgICAgICAgICAgICAgICAgIC AgICAgICANCiAgICAgICAgICAgICAgICAgICAgICAg ICAgICAgICAgICAgICAgICAgICAgICAgICAgICAgICAgICAgICAgICAgICAgICAgICAgICAgICAgICAg ICAgICAgICAgICAgICAgICANCiAgICAgICAgICAgICAgICAgICAgICAgICAgICAgICAgICAgICAgICAg ICAgICAgICAgICAgICAgICAgICAgICAgICAgICAgIC AgICAgICAgICAgICAgICAgICAgICAgICAgICANCjw/iGYzX3hygXBokjE3S0nqZv8OCo7BJK7pu1VgNT WgXVdadyKhRsuAZmOdOMUyZixFXso7UXwpUH9SoKYvO0PoQ1GwJHzbLU6XGGVuNTYszRToFLEbPWJaDe A5NBZuXYsuDQ2KvCKtKMwcHKYoDSOrTfQaXCZfIG6H JILtQ253kaGnBz8LXm8MDcJbFJ1vqw6HOsBwQQDeTdtBTmc7EBvhHH1PoPJylXAlKoCwVHUNUfRoV2qi f6QxVlVgQTVORKbvBY9Lu9BfmIUoDAg+Cj3BDD6wg5LnNLxaRuKfJH4oqc1KKZfQInNkD4NtyTomHWDk o2diMQXgVB9hgJIwCXT7XKleaUneukdxVKDHjFDdsH JwPTGEVpCuSSScQG3qYD4uYASyPXO8YwXgDXKZYI7GYWMjPFNnqJEjVMRnNDLDSK4UQTqaHYX1Dlpsrn YtqXVaWHmmXO9BXVYasaVqDvEbERXEFTt+My8NJP0jt4EqWVznIgPzTO3azq6VOTrMRqFbA8S3hYYfH6 K8LEmeFv7UPQDyLKXkHrDtPXVRDHcjOK9IGA1vnpC6 HD1KqJUlVNVcOFQhlKCcAVd8Q13dnXQzJZltYF9UMAQ+Lily+Qz7BRRNaSABxJEMeTyMuVEUNAtIhZ3Ol J6WDl2JuA4EqTM47nUjcdmIhNPbjXN7FDH4iHGPdIDVUNG5RfZEzbE8xruEtHVSfPLBWHnYtR47awUVm HXFxFNM6QVExOw7AMZVtW7TtsxNebYfkluUuXNCiJO LPYF2JGItlfmPpkUGwoIvnEZ60dHsuWZ4TJd6QOwNjNW3lqj0LbTGlGv2TKHPfRV6XJGBnGBObUHIoWG T6KJVeAzGhEXwpDKSoDKWqPUD4OGHoMGSmHI2GHpPaXIOxAfi6LyzyOMHiHNDdee2IMPZlHGU5TQHoGq OwFFEeEBEaNHcyQYIjSCHyBDR7CPPhQKEmWT2LAxNj DRSwNIU6TXUfDZLkKLXrfj4XPXAoCSJbJrkbTKXrMLDlMAPdDQceNPHsROI2TRCrQHAvXQCbAR8IXwVu HEKdDOP2PWqzGMDvSZKply7JUMGyRYMvHLP8PKChTAAoMGBmSLfyQVDcTVX0Hmv3RAKzIZOtQR2CQwHv EPPwWPH2TdKlLPKnMRCuki9BGCIsIKHpIrsjUeDrAP BxUBAiOZsmLNKpCIT7VKQ1EXFxDJRiFU1GKaJwBDHqEZoyGKLhWFHpNWRhmd8GRJRvPLPaSCE4CISyQY GhRTKtIOpfUKQmENY6LOJ2XXGxAZBsCZ9YKuYoKQItTaEsZzUxMCSeKNLlyy3WTJAsBAWkEAAtYaOkRC TgWGWoJFvlAWHwAEUyZVEvBGKoMVEkKL1FTzFjUHCl ZpO9LABdXIVlMFPfus9EECHnBKWaWLH7FtLcLZIyVUYuHLawDRHfBIXvVCj8DHJkIOEbOY2QZwIdVKVg OaS0YDVgNYGuRYBrib7BIXQgIUWtAiNrDEDrJUAdSZLsTSjaBHZjVSQaZLa6ZRFiPVXnIZ5XEwQtCKDe QtD5NGXsSZGqEMQrie5ZYAYlVBOdWqivTBXdTBJkIX PzFFmsUHJhOKN8XAY9IIPqYDRxCG6QLwSfRNMhBuhzRpxiIVRzEYXdfj5SPFZzSGAyBvNsKvUxPAKcCV RaPZgmNWDpJBA5GpV7HUQsTRLgAN6CGlBiYQPrZjo8MVCzMDKqGOGhpw2NAHCuMRZmCCzfOpXtWQPvSP YeDHjpFDFsWFW9HIuyQSYqCBRpBW5VPbPpDSHqZTQ2 ZfVqOQWbMPKnis8PIUZvUPA8UAM6KiElDAGmAZSpRXfjIHOtZMPkFWDnFBKuNKYyHG4TCfItIYsdWOOM Rhl8VAunO8h6HKBbNK9GK6Bdm0QtOnzzWWBXIBzuCK2zrtNiOPToZu2VH1jWOtbbGXAjHYYbIgBvKSm4 LAj3QkSqFFm4QxSmNTV2LvGeXx4yTPMxC2Y5HGKmY7 U3LRVrAms8QFP6UiEsBDX4WPuvBjM0XuIbLQ1QOo9MRrL1RBW5bCJlOa8BRPTuLKNGIfOvKD6MVCg= ID Date Data Source [id number] 09/22/2019 09:36:43 AM EDT [facility] Name Value Range Interpretation Code Description Data Dominga rce(s) Supporting Document(s) Progress Notes [facility] QXCUYi3xJtIQMbUo90/MCWbyNWBuu4ZrKEhxVZs5GNauXQIqK1WrRBX1jA7yESN0FHeAWwVrEzCeYFXz lbm [file] OTlhMTVmNTc+ST1dJUd+Uu4Ff1HgoxW0njLjMKmsYKE2TX3DONDCM4NOHt== ID Date Data Source [id number] 09/19/2019 12:19:34 PM EDT [facility] Name Value Range Interpretation Code Description Data Dominga rce(s) Supporting Document(s) Progress Notes [facility] FUIWQn5xZbPSKfVf05/JRDwhAOCdf7BwZYemQXj8BBkfVLFdB3NbXNW5pU5sCMW7DArNZtTuFzEcDQB2 lbm [file] X2tiCgADjrZCGuEW0JWXEYT1BNJp== ID Date Data Source [id number] 09/19/2019 12:19:29 PM EDT [facility] Name Value Range Interpretation Code Description Data Dominga rce(s) Supporting Document(s) Progress Notes [facility] TLMYQr0hBuXJOsZr43/DZDiiXUCup5VeZMcsJMl2SHcpYUGjS3BcXRN3oW9sACS7ESyHQcTaGtSeCXI5 lbm [file] AgICAgICAgICAgICAgICAgICAgICAgICAgICAgICAg ICAgICAgICAgICAgICAgICAgICAgICAgICAgICAgICAgICAgDQogICAgICAgICAgICAgICAgICAgICAg ICAgICAgICAgICAgICAgICAgICAgICAgICAgICAgICAgICAgICAgICAgICAgICAgICAgICAgICAgICAg ICAgICAgICAgICAgICAgICAgDQogICAgICAgICAgIC AgICAgICAgICAgICAgICAgICAgICAgICAgICAgICAgICAgICAgICAgICAgICAgICAgICAgICAgICAgIC AgICAgICAgICAgICAgICAgICAgICAgICAgICAgDQogICAgICAgICAgICAgICAgICAgICAgICAgICAgIC AgICAgICAgICAgICAgICAgICAgICAgICAgICAgICAg ICAgICAgICAgICAgICAgICAgICAgICAgICAgICAgICAgICAgICAgDQogICAgICAgICAgICAgICAgICAg ICAgICAgICAgICAgICAgICAgICAgICAgICAgICAgICAgICAgICAgICAgICAgICAgICAgICAgICAgICAg ICAgICAgICAgICAgICAgICAgICAgDQogICAgICAgIC AgICAgICAgICAgICAgICAgICAgICAgICAgICAgICAgICAgICAgICAgICAgICAgICAgICAgICAgICAgIC AgICAgICAgICAgICAgICAgICAgICAgICAgICAgICAgDQogICAgICAgICAgICAgICAgICAgICAgICAgIC AgICAgICAgICAgICAgICAgICAgICAgICAgICAgICAg ICAgICAgICAgICAgICAgICAgICAgICAgICAgICAgICAgICAgICAgICAgDQogICAgICAgICAgICAgICAg ICAgICAgICAgICAgICAgICAgICAgICAgICAgICAgICAgICAgICAgICAgICAgICAgICAgICAgICAgICAg ICAgICAgICAgICAgICAgICAgICAgICAgDQogICAgIC AgICAgICAgICAgICAgICAgICAgICAgICAgICAgICAgICAgICAgICAgICAgICAgICAgICAgICAgICAgIC AgICAgICAgICAgICAgICAgICAgICAgICAgICAgICAgICAgDQogICAgICAgICAgICAgICAgICAgICAgIC AgICAgICAgICAgICAgICAgICAgICAgICAgICAgICAg SVZlLQTyGHQuAYBeKVGtJIQoWHCcEZWxBRBeBGCmYRZuSUOzVOFyFXIrPBBvTCd5P4zsJZYyIDPaTH0g TRw5Fg9+DWuJWeDxQYM1krHhjE1FRD6vx7CiAJvlKQJnv6NpJHt2LN8AHXZsWNxuCU9SCRcgxl6KQHSl WSOpvLZKj6goOeNyPHJ8XCKmTvsfVO0YMADoH2crld AxLVFlIKCELI6BBlPrR0VloE80NBXMNi1+AIebhoHfMetTBxQqBDBfn9AmGKd5QV9CODGxJfdpo3MnCo YrSFLSGWfeTS3HIAB5VVOoTYDuXm4YHUEiK107kzMoBO1ZEu3SWiOoZY9hee3XOzDaMJWvUrrLVxf3MH opBB2TvNOpZGnRrs5jufLowkODl8LpvyLdbYBTVVJg cYOSPUUtBVGWSrQvfSY3VfZ1OpYjOnXbWVG9XgCbYD5pXUbeWE9XGJZ9AQdxSWInNEImN0zZUiCgMHoq QIUjxKejDC4HMiBmH2FyhxPjlRTnGuHnDWZPIa4+REjnefNbUvwMLxS4ZVQxj4LuWIz8KO7WFISmBJch OA8UBISflK5rONlqHI0IFmRkTNYlUWZPGrCtW40elJ NpRTc9C9MrVvCcHWMcWbrjMAMhBYhtPzEnZOZtNaEiXOxuFG7+ID4+FTrwAJ3PSPgshkKgVOKvXs4DBQ OtIVQfRK3aJUMcMLQvV8T6hOgjPGGTYjIkR9uxwlewCU6qEZHrU479xQrhmvUvEBAiBBAuDx0DUXAoHY W1SSTpdWAwDzAwHKPTETqhUY6WqYAmZJR3oG7fIAgy NMLwMAZmY2bQXuUacBawNX24wGwjczWjtKArHHk+Zp9TBY4aq3JiMWf9iyGiWYmoPJH2SBhpLWRnIGBc NQHvYKC4SNN8KADIZwWtUMFdGCYhXAzhXERzIVMemu9AHNCcAUOiUKK7MsNzPUEnGOMiVRxtIBMoEVXm FGv9KRWtIJJpSP1PNfQyYIWmXMMkWQjvOOBwXVXryz 1DKVJxHRXrAZz3YGTvUEJpGJCvEJttKHQySTCdHZf5URYuRXRwDP6CSiGbGYGyKNZwNAusPGLmTFNnti 6ZNDPeLYIqAnE2NWWkUWVyAYMpZVlfTLToOWUhJFPtWWZhEHYvPS0AZrUoMRXhAUFvOKEkUSVbVKHmnn 0RWOOzFSTuRqX9IAGwAJMfZHOjNUsuDXAuKDHxSqsd NCWfFIVcUC3SLgZuBRPaHOXlSfMxGMBaUFZvta1JNKSrCJFnWaYjUwFzGRHoKXEsAEjpTTXpLEX8LaN3 FKKwLKTcAJ4NAvPwVIVrVCF6GESuBMHwKUKtqo2XHCImEEKgGaXmFJHdHJAsWDCmUDkjCOXbJVL7RQsg CEQlHYLtWH3LKtPiWHByQUonZSucWMOeBODpek4XQE MrNDTuRHPtGZLjRDAaXUYnEIjmSGSaOTZ5GcN9FXCgDCDaII9VNdAgSRUnVaKiWGSsFLBiWKLqxm0FMV TrVBDlKNT1FkTuBLKkEDCxPKraBUHrLFTlEXSxCJMjMJGmVP0QGfBjOWqxCPCAHkz3SUdwO0o0ZROdOB 3BF7Aro7YhIrAlFMHDZSmwMB2aopOuTBMnIx1BU0aX Zrq8YHDlJHzrLPTiTunoQcPwWcHfJmRhSut6MFt5FTC6Ct3pOXMjEiDsPJJwObG0OkVmSWK4TXKrQtS3 BAQ0BSVxZVZ5PtLdYB0UJz1PTfP7ELY4yYOtWy2NGyK0GBPXIoSwMK6RUTy= ID Date Data Source [id number] 09/19/2019 11:36:45 AM EDT [facility] Patient: MEENU BLAKE : 1990 MR N: [id number] [facility]: ULTRASOUND BIOPHYSICAL PROFILE WITH NON STRESS TEST Provider: ALLA ROCKHISTORY: Hypertension. .Evaluate fetus. Limited exam performed specifically to assess the biophysicalprofile score and MARIELA. Exam was performed as a limited exam. Please see thedata worksheet below.Anatomy not assessed at this time. There is a live IUP, in cephalic presentation, with a normal MARIELA and a normalbiophysical profile score.Please see the data worksheet below. IMPRESSION: LIVE IUP WITH A NORMAL MARIELA AND NORMAL BIOPHYSICAL PROFILE SCORE.Name: MEENU BLAKEPatient ID: [id number]-[id number]:1990 -29 yrs -FemaleRef. Phys: Sasha Date: 09/19/2019Exam Site: [id number]:maternalHTNProcedure: ULTRASOUND BIOPHYSICAL PROFILE WITH NON STRESS TESTFindingsExam Notes Area of interest: [ ].Observations cx n/vcephalic presentationfundal placenta, grade IIFHR 144bpmAFI 162mmbio score 8/8clinical GA 72t3pXGY 10/29/2019Report edited for Nazia Vazquez MD 09/19/2019 11:32 AM Electronically Signed by Nazia Vazquez MD 09/19/2019 11:36 AM Name Value Range Interpretation Code Description Data Dominga rce(s) Supporting Document(s) ID Date Data Source [id number] 09/17/2019 11:10:46 AM EDT [facility] Name Value Range Interpretation Code Description Data Dominga rce(s) Supporting Document(s) Progress Notes [facility] YHTIXt2vTxMZQlUb51/SFYgpWJLlq9ZxTVeiIUv8URlgNWJtT0NdQEV3bK7rOGR0LEdTKaPlNjJkBXG9 lbm [file] supervisor instant potato processing+Im4SNJzUvXkEIj1GJtFvPPw/RIRbRvLdJo0BvkOSAX86eVHfuMaHRxTZ4bEeIkbkYvcPsC9RJY6y [file] ID Date Data Source [id number] 09/17/2019 05:10:00 PM EDT [facility] Name Value Range Interpretation Code Description Data Dominga rce(s) Supporting Document(s) Urine Creatinine 108.00 mg/dl [facility] Random Urine SpecimenThe above 1 analyte s were performed by [facility] [address] [place] [address], ,[place] [address] ID Date Data Source [id number] 09/17/2019 05:10:00 PM EDT [facility] Name Value Range Interpretation Code Description Data Dominga rce(s) Supporting Document(s) Urine Total Protein 15.6 mg/dl 0.0-11.9 Above high normal [facility] Random Urine SpecimenThe above 1 analyte s were performed by [facility] [address], ,[place] [address] ID Date Data Source [id number] 09/17/2019 02:50:00 PM EDT [facility] Name Value Range Interpretation Code Description Data Dominga rce(s) Supporting Document(s) PT, No Coag Tx/Coag Tx Unk 11.2 Seconds 10.2-12.9 Ruby l (applies to non-numeric results) [facility] PT referenence range reflects values for patients not on anticoagulanttherapy.Discrepant results may occur due to anticoagulant effects such ascoumadin, direct thrombin inhibitors; argatroban (Acova), b ivalirudin(Angiomax) or dabigatran (Pradaxa) or direct factor Xa inhibitors;rivaroxaban (Xarelto), apixaban (Eliquis) and edoxaban (Savaysa). INR (No Coag Tx/Coag Tx Unk) 1.0 0.9-1.1 Nor mal (applies to non-numeric results) [facility] Suggested therapeutic INR ranges for ora l anticoagulant therapy: Indication:INRPrevention and treatment of DVT and PE2.0 - 3.0Prevention of systemic embolism with atrial fib., acute MN and 2.0 -3.0 tissue prosthetic heart valves.Prevention of systemic embolism in patients with mechanical heart2.5 -3.5 valves.NOTE: The INR is only valid for patients on stable oral anticoagulanttherapy. The above 2 analytes were performed by [address], ,[place] [address] ID Date Data Source [id number] 09/17/2019 02:50:00 PM EDT [facility] Name Value Range Interpretation Code Description Data Dominga rce(s) Supporting Document(s) PTT, No Coag Tx/Coag Tx Unk 33.0 Seconds 25.1-36.5 Norm al (applies to non- numeric results) [facility] Discrepant results may occur due to anti coagulant effects such asheparin, direct thrombin inhibitors; argatroban (Acova), bivalirudin(Angiomax) or dabigatran (Pradaxa) or direct factor Xa inhibitors;rivaroxaban (Xarelto), apixaban (Eliquis) and edoxaban (Savaysa).The above 1 analytes were performed by [address], ,[place] [address] ID Date Data Source [id number] 09/17/2019 02:30:00 PM EDT [facility] Name Value Range Interpretation Code Description Data Dominga rce(s) Supporting Document(s) AST 13 IU/L 15-37 Below low normal [facility] Sulfasalazine and sulfapyridine have the potential to falsely depressAspartate Aminotransferase results. Baseline values before medication administration are recommended. ALT 18 IU/L 13-56 Normal (applies to non-numeric resul ts) [facility] Sulfasalazine and sulfapyridine have the potential to falsely depressAlanine Aminotransferase results. Baseline values before medication administration are recommended. Alkaline Phosphatase 150 mIU/ml 50-136 Above high normal [facility] Total Bilirubin 0.20 mg/dl 0.20-1.00 Normal (applies to non-numeric results) [facility] Blood Urea Nitrogen 11 mg/dl 7-18 Normal (applies to non-nume mary results) [facility] Creatinine 0.83 mg/dl 0.51-0.95 Normal (applies to non-numeric resul ts) [facility] N-Acetylcysteine (NAC) and Metamizole zhang ve the potential to falselydepress Creatinine results. Baseline values before medication adminstration are recommended. Patients undergoing treatment with phenindione will have falselydepressed results. Patients on phenindione therapy should be tested with an alternativeCREA method. Glomerular Filtration Rate 80.00 mL/min/1.73m2 [facility] GFR Reference Ranges:Normal Function or Mild Renal Disease,if clinically at risk:>or= 60Moderately decreased:30 - 59Severely decreased:15 - 29Renal Failure:<15 Please note that the MDRD equation requires an additional adjustment forAfrican-Americans (multiply the GFR result by 1.210).Glomarular Filtration Rate (GFR) is estimated based on the MDRDequation, which assumes a steady state for creatinine (Jennifer Int Med 139/2 137-149, 2003), as recommended by the NationalKidney Disease Education Program in conjunction with the National Institutes of Health and the National KidneyFoundation. The [place] method used in calculating this result is traceable to IDMS standards. Glucose 81 mg/dl 70-110 Normal (applies to non-numeric resul ts) [facility] Sulfasalazine has the potential to false ly depress Glucose results. Sulfapyridine has the potential to falsely elevate Glucose results. Baseline values before medication administration are recommended. Calcium 9.2 mg/dl 8.5-10.1 Normal (applies to non-numeric resul ts) [facility] Total Protein 6.9 g/dl 6.4-8.2 Normal (applies to non-numeric re sults) [facility] Albumin 2.7 g/dl 3.4-5.0 Below low normal [facility] Sodium 140 mEq/L 136-145 Normal (applies to non-numeric resul ts) [facility] Potassium 4.9 mEq/L 3.5-5.1 Normal (applies to non-numeric resul ts) [facility] Chloride 110.0 mEq/L 98.0-107.0 Above high normal [facility] Carbon Dioxide 22.5 mMol/L 21.0-32.0 Normal (applies to non-numeric results) [facility] Anion Gap 12.4 [facility] The above 16 analytes were performed by [facility] [id number] [place] [address], ,[place] [address] ID Date Data Source [id number] 09/17/2019 02:30:00 PM EDT [facility] Name Value Range Interpretation Code Description Data Dominga rce(s) Supporting Document(s) LDH, Total 160 IU/L 84-246 Normal (applies to non-numeric resul ts) [facility] The above 1 analytes were [facility] [id number] [place] [address], ,[place] [address] ID Date Data Source [id number] 09/17/2019 02:30:00 PM EDT [facility] Name Value Range Interpretation Code Description Data Dominga rce(s) Supporting Document(s) Uric Acid 4.2 mg/dl 2.6-6.0 Normal (applies to non-numeric resul ts) [facility] N-Acetylcysteine (NAC) and Metamizole zhang ve the potential to falselydepress Uric Acid results. Baseline values before medication adminstration are recommended.The above 1 analytes were performed by [facility] [id number] [place] [address], ,[place] [address] ID Date Data Source [id number] 09/17/2019 02:24:00 PM EDT [facility] Name Value Range Interpretation Code Description Data Dominga rce(s) Supporting Document(s) WBC 12.74 x1000/ul 4.80-10.00 Above high normal [facility] RBC 4.69 x1Mil/ul 4.20-5.40 Normal (applies to non-numeric re sults) [facility] Hemoglobin 12.5 g/dl 12.0-16.0 Normal (applies to non-numeric resul ts) [facility] Hematocrit 39.1 % 37.0-47.0 Normal (applies to non-numeric resul ts) [facility] MCV 83.4 fL 81.0-99.0 Normal (applies to non-numeric resul ts) [facility] MCH 26.7 pg 27.0-31.0 Below low normal [facility] MCHC 32.0 g/dl 32.2-37.0 Below low normal [facility] RDW 13.4 % 11.5-14.5 Normal (applies to non-numeric resul ts) [facility] Platelet Count 192 x1000/ul 130-400 Normal (applies to non-numeric results) [facility] MPV 12.0 fL 9.4-12.4 Normal (applies to non-numeric resul ts) [facility] Nucleated RBCs 0.00 % 0.00-0.20 Normal (applies to non-numeric r esults) [facility] Abs. Nucleated RBCs 0.00 x1000/ul 0.00-0.02 Normal (appl ies to non-numeric results) [facility] The above 12 analytes were performed by [facility] [id number] [place] [address],[facility]#: [id number],[place] [address] ID Date Data Source [id number] 08/26/2019 08:28:46 AM EDT [facility] Name Value Range Interpretation Code Description Data Dominga rce(s) Supporting Document(s) Telephone Encounter [facility] QFESJd0zDlNFZjIx97/GNYwgTHDkq0BhFNyyTVb6LRamUAJoM9VdBZZ9pZ5tESZ4NYcDQuWpJrPbYfJ5 lbm [file] ICAgICAgICAgICAgICAgICAgICAgICAgICAgICAgIC AgICAgICAgICAgICAgICAgICAgICAgICANCiAgICAgICAgICAgICAgICAgICAgICAgICAgICAgICAgIC AgICAgICAgICAgICAgICAgICAgICAgICAgICAgICAgICAgICAgICAgICAgICAgICAgICAgICAgICAgIC AgICAgICANCiAgICAgICAgICAgICAgICAgICAgICAg ICAgICAgICAgICAgICAgICAgICAgICAgICAgICAgICAgICAgICAgICAgICAgICAgICAgICAgICAgICAg ICAgICAgICAgICAgICAgICANCiAgICAgICAgICAgICAgICAgICAgICAgICAgICAgICAgICAgICAgICAg ICAgICAgICAgICAgICAgICAgICAgICAgICAgICAgIC AgICAgICAgICAgICAgICAgICAgICAgICAgICANCiAgICAgICAgICAgICAgICAgICAgICAgICAgICAgIC AgICAgICAgICAgICAgICAgICAgICAgICAgICAgICAgICAgICAgICAgICAgICAgICAgICAgICAgICAgIC AgICAgICAgICANCiAgICAgICAgICAgICAgICAgICAg ICAgICAgICAgICAgICAgICAgICAgICAgICAgICAgICAgICAgICAgICAgICAgICAgICAgICAgICAgICAg ICAgICAgICAgICAgICAgICAgICANCiAgICAgICAgICAgICAgICAgICAgICAgICAgICAgICAgICAgICAg ICAgICAgICAgICAgICAgICAgICAgICAgICAgICAgIC AgICAgICAgICAgICAgICAgICAgICAgICAgICAgICANCiAgICAgICAgICAgICAgICAgICAgICAgICAgIC AgICAgICAgICAgICAgICAgICAgICAgICAgICAgICAgICAgICAgICAgICAgICAgICAgICAgICAgICAgIC AgICAgICAgICAgICANCiAgICAgICAgICAgICAgICAg ICAgICAgICAgICAgICAgICAgICAgICAgICAgICAgICAgICAgICAgICAgICAgICAgICAgICAgICAgICAg ICAgICAgICAgICAgICAgICAgICAgICANCiAgICAgICAgICAgICAgICAgICAgICAgICAgICAgICAgICAg ICAgICAgICAgICAgICAgICAgICAgICAgICAgICAgIC AgICAgICAgICAgICAgICAgICAgICAgICAgICAgICAgICANCjw/mAUiN9sxlPOymeX9S6fiEt9SQo1SCU 7go1CnRUAiLNlfcwUhQdrYUeEwFQPlOlbTNpj6CErpON1RoPQnK4FxC7UqQKycKU8RHEQcHCOpmAQcAM EaASYeJiL2XVYaEEpvUI1NhBLtMSpeYGCyICBkSO3L YSPlE714lwBdBO7RAt9FZaLlPP0drv0NBnTiSSKnOayCUug3JTqeMR5PmIMecJZtVkGpYNJNCqLlS3dx g0XrNsNwFWUHPQkaQP1Oc0IerXWfERi+Rs9BIU9zr7SbMMbvEsGfMB4nsy0MOPxIRrHaI6GicLcvSOXh fQVsjD5eJBKAqcXrbP82ZWJhHrtoY0P0nVcuTIVolo lcFu2qNCVgRx1zCV7aZWMgKVB3VvLyOCWPPF4MMBHxMNFpmVPiLWVzRUTTPD6QESfoPMH4WnmuszVmaJ KrSRpoGA0UFCVboeAnNbHfIZLPUWv+Mb4YFY6wp3MqJGieKCBwIZ7ymc6JXKyNSeQlV1B9zLApJ8P5ME vmKe3ASGRrZFJlMuLbNMHNITpsSC3IWN3vxtQ2QN2Y lCZlUSKkWMHorQOgGVx4R21gqSEiBTchBT7VTQN+Lily+Gk9KCWBmSBUwQLPoQkVwGZJFIwMyW6NrU0JL q7OnW2YiGP51gEuhioUyJIxeGM1VSL2tWTKhVAWSLY4LvKGjrH1pmxYnIsQcTENXWmDhU07jtPWxTSAt CZIfZXHoXz2JSGAvP3ZfasYkqQxvtkXjJYNtSNCPBA 3LECzbyiUnjCXlpDitKJ15fYqbDW5AQi5XJxCuLM4jtl2JsBUpJs5QDTMkMK5KMBIsEPKcNWXjTQQ0TV CaZkWtYBxwPRZpEIZkFTW5KDOuCZYzOZ1HOwRdWDUyUZqfQIxvQWPfIIAcsp8UUYVtHYTaTEmzYwPsHN VtALIrOWtvRBByAQZjNRR7PWCrEYLaGG4ONtDbBASv EHJ1UcDbBWShOLPzyl6PYITnVKOsUMuzMONsXOMzLONgEApuBWPlVHFvIfvbYCPqSJKaMS9YNoQdEDNi DRA8ENFdRWGvTIObpe0IOWQjEIPuDbT2GXSlSTPtNSEhLAezYNQnHYB7PPW8HEFtBSXmYQ2XAbFeBTHt LUUpDcOmKYBrQBInqy4SDCUuZAJrEAQkLqKuVXAmLH KwYMsxJQNuVSJ0ZHW7ISYqPXShGT8IXiPzCFGxEZkkKYQgERTqYGQjea9DUJUcSUEpHgC5YQXbNKPsJA XbNGkaGOSdLMX0RyJiFZPqRFLfRE0UDsKhOOYsMKo4VeleYGPfTXOhfx0OBHLcMOBlKIipJPQcRRDqUE AaAQycRDUyIYY6FAX1VDIdXWJgOB1EAuRaNZJjPEfk ErhlQXZdUUPvos8EJCSpFPEsBHD2KlEaMWFcLINlUXwwZUUlEILkDSYhPZEpMWGnDV6YPnYiVTBcSbWd UHVtFQPwMMYfuz3KSDZiEURxDXK4BnAdTSImUXKaAVk4pzVntJIiGWw4SE4UR2FfplSsXzSVOc3Th113 XIQ3PXWiYi2SK9soUj9nXKLtYRHCUf3QBNt5IrIxUT CcFAX1JRJ1CdMeUohwNGHdLUKqXPCxHAXzYLB+SPt4KIA9JcF5QyewKbshZXX3LSXjObJ8RdCqIlZnMo ChUF0mZSNBFa0+JWctyNDkhBxuAJYXLuVjBvn1IDanBUPHSj5F ID Date Data Source [id number] 08/20/2019 09:43:14 AM EDT [facility] Name Value Range Interpretation Code Description Data Dominga rce(s) Supporting Document(s) Progress Notes [facility] HPDGPo0gEjMEBmAr50/FHIvoPJWyg7BxUOdrOVx7EVljUTNyR5FkELY9wK4cTCF7WEdCVgJqMpMmDkJ0 lbm [file] AgICAgICAgICAgICAgICAgICAgICAgICAgICAgICAgICAgICAgICAgICAgICAgICAgICAgICAgICAgIC AgICAgICAgICAgICAgICAgICAgICAgICAgICAgICAg ICAgICANCiAgICAgICAgICAgICAgICAgICAgICAgICAgICAgICAgICAgICAgICAgICAgICAgICAgICAg ICAgICAgICAgICAgICAgICAgICAgICAgICAgICAgICAgICAgICAgICAgICAgICANCiAgICAgICAgICAg ICAgICAgICAgICAgICAgICAgICAgICAgICAgICAgIC AgICAgICAgICAgICAgICAgICAgICAgICAgICAgICAgICAgICAgICAgICAgICAgICAgICAgICAgICANCi AgICAgICAgICAgICAgICAgICAgICAgICAgICAgICAgICAgICAgICAgICAgICAgICAgICAgICAgICAgIC AgICAgICAgICAgICAgICAgICAgICAgICAgICAgICAg ICAgICAgICANCiAgICAgICAgICAgICAgICAgICAgICAgICAgICAgICAgICAgICAgICAgICAgICAgICAg ICAgICAgICAgICAgICAgICAgICAgICAgICAgICAgICAgICAgICAgICAgICAgICAgICANCiAgICAgICAg ICAgICAgICAgICAgICAgICAgICAgICAgICAgICAgIC AgICAgICAgICAgICAgICAgICAgICAgICAgICAgICAgICAgICAgICAgICAgICAgICAgICAgICAgICAgIC ANCiAgICAgICAgICAgICAgICAgICAgICAgICAgICAgICAgICAgICAgICAgICAgICAgICAgICAgICAgIC AgICAgICAgICAgICAgICAgICAgICAgICAgICAgICAg ICAgICAgICAgICANCiAgICAgICAgICAgICAgICAgICAgICAgICAgICAgICAgICAgICAgICAgICAgICAg ICAgICAgICAgICAgICAgICAgICAgICAgICAgICAgICAgICAgICAgICAgICAgICAgICAgICANCiAgICAg ICAgICAgICAgICAgICAgICAgICAgICAgICAgICAgIC AgICAgICAgICAgICAgICAgICAgICAgICAgICAgICAgICAgICAgICAgICAgICAgICAgICAgICAgICAgIC AgICANCiAgICAgICAgICAgICAgICAgICAgICAgICAgICAgICAgICAgICAgICAgICAgICAgICAgICAgIC AgICAgICAgICAgICAgICAgICAgICAgICAgICAgICAg ICAgICAgICAgICAgICANCjw/fIQiC6vnvOJzfoF9Q6gbGg0PXx8MWS3vg2OpOPNuDMyrcbKrXbxZYfNl LLMdMreYDyu3WFfrUX6YyZDvL5FjC6YvAQcuAD7AWRHnVWIwfSOdNXBaXOCuVoC7ICGcGVloCO6EjTOo APmmKQIrKGXgOyLaHXEuFF6LNPMrI668gjLaXg1NLk 6LHdPtZZ2ihz1HZvMlEBBhRjwDTcv4ESejIW2XfBWatUVeZaFeNRHAXmMiB1ure9UkWcXlYQKOATzrTO 0Cu7VblVOzLKf+Vn9GHJ4ud4KqSAqbNiZdHZ8jma1TGZzDInObY6DycFtqHUWeb4owGNIzEX8ojGVaSZ G6RZsxfRezdwhvTPFQxYYhnRMxMRGRCwZyLGSbUj6c TQ2eICFsFSB9CcJtCTGRLP6CXESjVXMbbEZxYOIoIKEWCR5WARsjAIL6EgjjhrGkeJUsAWnrIC2FNKJy bnQgMzUgMCBSDQo+Nr2ALU2zi7BeTLtdBtByTI1qwm7TSBkIDxTsS2P1yHIcA8Y5UCkzTm8MGYVxOZFc IeXyOAKSBFaxNF7RHJ0paiA5MW6WoOUaZVNjCWBhxO EhIUo9Y81feCOiTNdyZX8LBTD+Lily+Tg6IDMYhOITzAJXlQdZbHZHZJhCrI0TrX0QZi4ZlE0OrKX16wB rsxvKnTMybEY0OAX2xFJBkLSXFGT6GuENrbU7aylJeGFHzOXDWHuUfZ36zbSAtBDHbCKJ0BKYwCy9ECK EfU7RpsvMaeNglqlDpOLCfKHQJJR8QLZajipErtFTi qQrvXG19sKicRG1LFv3HBlEhQW7ipc6ZhDTcVr2JWLBhZX9YYYIoEKFyTMPxIIG9HTLtLvJxVQerFSRf FUSjXSD1LASfYSQzUQ5DIpWpYOBoOft9NgboDIDjAIPqbz3DLSNyZHXqNMd4XQQuHKScOFDlGRawJXRp UYRjQCQ0MQQmZFOlHA8WSnFhHHOpMTN7ECNeAPIdZR Fcwb7IQIMpPVGrDrt2VwDeOOYiUPDtUZuyUKRdUNQqLtPpDNMiCTIhDB5IMjMyTYWmQQT3TSVzHGHqGJ Xzka5QNCXgHLXhMHuuUYJwRAMcWRGbDQhpMRYlHAD1ORK3AOKmYONjDO7GUbRsBACgACGxCUPaBCIpBQ Dafx8DYJHoDOWqNcR0IRRaXGJiEGJeLUohGJReSWS4 XgX9GPYnHNYjYF2NQhSzAPUcGJF6HdVmAMYfGIKrxh1JGIKwGMKgUXu7LTOyMVPtWHGwHQlaZZMhSDE5 KGk5GKRyJOWvLM8MOwFaUZChZCh3VFFoWLXiXUBpto6ENYRiVPTpBUS3YCAsQZWgYWVkNFjkHXCoHJR0 AtizSDYfRZQnSE5CPxIvMLKtQlV2ZqSfLJHtKWKcym 8JHYUuLIKrGJuuJEQdVHEhCFRwATqrUCYrHHKnNQUgHHZoZLWmMT6OJjIyZLDvFtDnWJAlLVHaEIImfp 2AJUJuKDAmDeRuFQKvTZBcKXFeZYsqJQDbPCOiJYYeTVMvAATeFK1QXmDsCZCkVxW1EwXtSIQsBCGmzq 9SMLFoTPAnRiM9MwRmTDYjANNtLSkwLPMpSVO1LgJ3 RFMxLVXnMW1EEhEnGJUlKuU7WMrsXALbABAwdm3OPVKmHPXeMwZ0TrJlZJGlWZWrDQjvTXGnJLJ1DWt4 GIMjRALbAR6YMaYeZXHdPbn9MsWyGJLmFHQort5HDMKcHBKrEaj1GrQgXKSuWHNzNBieNYKhHRC5RGLv KDUzSQDiKD7XMpYpFQRyLfj5PVPmWTLqQYAtgo7UXF KwMJQsCIyjWwSfNYUjULNaLKhrTWCaOKIwPRi2KBCsCRMnOI5ZHpVzKBosTOEPEsn7KNfmG9w5JNCmIV 5PG4Pcv5NhQttuZCNJHGqjGX8kanKrPTJmEa1IW5cRDjsvHGr6LWUdHfZxAAYxJBUiAVXiZSQhGfWnM7 E1ZRzmWM9eLDHfBMydYxQxDJA4AIW2OYP5GEG2CsAx SJA2KDw2L2ImCiVoCV7XAi0TFoI9OWQ4zGOzRq3JSIElKsFGCbJoNT5DHLc= ID Date Data Source [id number] 08/06/2019 12:43:25 PM EST [facility] Name Value Range Interpretation Code Description Data Dominga rce(s) Supporting Document(s) Progress Notes [facility] QCOQId6wQiLDSbEk92/FCLjgLTQxj5JwWZjoVSp0AXfeAPTzZ3NqSZL7sP3sPAN1HFgVAsOfTlSzIvG7 lbm [file] [id number]== ID Date Data Source [id number] 08/06/2019 12:43:20 PM EST [facility] Name Value Range Interpretation Code Description Data Dominga rce(s) Supporting Document(s) Progress Notes [facility] SORITt7sQjULPaZe85/IIMdpNHQsn5XfACgoCPd3EYumNQCzM5KqTZA5sR8mMHY9UPcVVxIwNgMbCfK4 lbm [file] [id number]= ID Date Data Source [id number] 08/06/2019 02:22:00 PM EST [facility] Name Value Range Interpretation Code Description Data Dominga rce(s) Supporting Document(s) Hemoglobin A1C 5.2 % 0.0-5.6 Normal (applies to non-numeric r esults) [facility] Attention! Effective: 06/11/2019Please n ote a change in the reference range for Hemoglobin A1C testing.Previous Reference Range: 4.2-6.3New Reference Range: Normal: Less than 5.7% Pre-Diabetes: 5.7 - 6.4% Diabetes: Greater than 6.5%The above 1 analytes were performed [address] [facility] [id number] [facility], ,[place] [address] ID Date Data Source [id number] 08/06/2019 02:20:00 PM EST [facility] Name Value Range Interpretation Code Description Data Dominga rce(s) Supporting Document(s) Glucose after 50gm 135 mg/dl 70-180 Normal (applies to non-numer ic results) [facility] The above 1 analytes were performed by [facility] [id number] [facility], ,[place] [address] ID Date Data Source [id number] 08/06/2019 02:16:00 PM EST [facility] Name Value Range Interpretation Code Description Data Dominga rce(s) Supporting Document(s) WBC 11.67 x1000/ul 4.80-10.00 Above high normal [facility] RBC 4.23 x1Mil/ul 4.20-5.40 Normal (applies to non-numeric re sults) [facility] Hemoglobin 11.6 g/dl 12.0-16.0 Below low normal [facility] Hematocrit 36.7 % 37.0-47.0 Below low normal [facility] MCV 86.8 fL 81.0-99.0 Normal (applies to non-numeric resul ts) [facility] MCH 27.4 pg 27.0-31.0 Normal (applies to non-numeric resul ts) [facility] MCHC 31.6 g/dl 32.2-37.0 Below low normal [facility] RDW 13.9 % 11.5-14.5 Normal (applies to non-numeric resul ts) [facility] Platelet Count 184 x1000/ul 130-400 Normal (applies to non-numeric results) [facility] MPV 12.1 fL 9.4-12.4 Normal (applies to non-numeric resul ts) [facility] Nucleated RBCs 0.00 % 0.00-0.20 Normal (applies to non-numeric r esults) [facility] Abs. Nucleated RBCs 0.00 x1000/ul 0.00-0.02 Normal (appl ies to non-numeric results) [facility] The above 12 analytes were performed by [facility] [id number] [place] [address],[facility] [id number],[place] [address] ID Date Data Source [id number] 08/07/2019 12:07:00 PM EST [facility] Name Value Range Interpretation Code Description Data Dominga rce(s) Supporting Document(s) Alcohol Negative mg/dL Cutoff: 10 Normal (applies to non-numeric r esults) [facility] Amphetamines Negative ng/mL Cutoff: 500 Normal (applies to non-num yevgeniy results) [facility] Barbiturates Negative ng/mL Cutoff: 200 Normal (applies to non-num yevgeniy results) [facility] Benzodiazepines Negative ng/mL Cutoff: 100 Normal (applies to non-numeric results) [facility] Cocaine Negative ng/mL Cutoff: 150 Normal (applies to non-numeric results) [facility] Methadone Negative ng/mL Cutoff: 300 Normal (applies to non-numeric results) [facility] Opiates Negative ng/mL Cutoff: 300 Normal (applies to non-numeric results) [facility] Phencyclidine Negative ng/mL Cutoff: 25 Normal (applies to non-nu meric results) [facility] Tetrahydrocannabinol Negative ng/mL Cutoff: 50 Normal (jim lies to non-numeric results) [facility] ADDITIONAL INFORMATIO N This report is intended for use in clinical monitoring ormanagement of patients. It is not intended for use inemployment-related testing.This test has been modified from the manager front'sinstructions. Its performance characteristics weredetermined by [facility] in a manner consistent with CLIArequirements. This test has not been cleared or approved bythe U.S. Food and Drug Administration.Test Performed by:[facility] - [address] [address]Rrt Director: Live Rodriguez M.D. Ph.D.; CLIA# [id number] above 9 analytes were performed by [employer] ([id number]) ID Date Data Source [id number] 08/01/2019 02:03:53 PM EST [facility] Name Value Range Interpretation Code Description Data Dominga rce(s) Supporting Document(s) Progress Notes [facility] UUEIYs2bGdHWXiZj91/AQQdrRCZzu9SvENpgHTh0OOxxNVCyT9XzFXB8nE6fEWB5FGtVQmYcSlBwXmE4 m [file] ICAgICAgICAgICAgICAgICAgICAgICAgICAgICAgICAgICAgICAgICAgICAgICAgICAgICAgICAgDQog ICAgICAgICAgICAgICAgICAgICAgICAgICAgICAgIC AgICAgICAgICAgICAgICAgICAgICAgICAgICAgICAgICAgICAgICAgICAgICAgICAgICAgICAgICAgIC AgICAgICAgDQogICAgICAgICAgICAgICAgICAgICAgICAgICAgICAgICAgICAgICAgICAgICAgICAgIC AgICAgICAgICAgICAgICAgICAgICAgICAgICAgICAg ICAgICAgICAgICAgICAgICAgDQogICAgICAgICAgICAgICAgICAgICAgICAgICAgICAgICAgICAgICAg ICAgICAgICAgICAgICAgICAgICAgICAgICAgICAgICAgICAgICAgICAgICAgICAgICAgICAgICAgICAg DQogICAgICAgICAgICAgICAgICAgICAgICAgICAgIC AgICAgICAgICAgICAgICAgICAgICAgICAgICAgICAgICAgICAgICAgICAgICAgICAgICAgICAgICAgIC AgICAgICAgICAgDQogICAgICAgICAgICAgICAgICAgICAgICAgICAgICAgICAgICAgICAgICAgICAgIC AgICAgICAgICAgICAgICAgICAgICAgICAgICAgICAg ICAgICAgICAgICAgICAgICAgICAgDQogICAgICAgICAgICAgICAgICAgICAgICAgICAgICAgICAgICAg ICAgICAgICAgICAgICAgICAgICAgICAgICAgICAgICAgICAgICAgICAgICAgICAgICAgICAgICAgICAg ICAgDQogICAgICAgICAgICAgICAgICAgICAgICAgIC AgICAgICAgICAgICAgICAgICAgICAgICAgICAgICAgICAgICAgICAgICAgICAgICAgICAgICAgICAgIC AgICAgICAgICAgICAgDQogICAgICAgICAgICAgICAgICAgICAgICAgICAgICAgICAgICAgICAgICAgIC AgICAgICAgICAgICAgICAgICAgICAgICAgICAgICAg ICAgICAgICAgICAgICAgICAgICAgICAgDQogICAgICAgICAgICAgICAgICAgICAgICAgICAgICAgICAg ICAgICAgICAgICAgICAgICAgICAgICAgICAgICAgICAgICAgICAgICAgICAgICAgICAgICAgICAgICAg SLHbOEOyRSf5X6toKBWlYQIvLI3qWHm0Up9+DQoNCm ZxSOA5ptJyvC4TKT8yx1IiOIrsHPYyg9SfHDf0FD9MUETbHIveVJ9JXQimcd3VJOLuOHWmiRYPh3shVq ZzUHB3OYRwYmzqYH3IZFNsM6lgfnZtHFScUNWUXC6KDdHcL5AruO92QUHWCk7+IJkdyuHkCctZUgW8HX Omb7PgACn1GZ0GYOQdSjtco4TfEmEjCUGKKKipPD8W YYP4ZCC4NLXaMx8JEDPgA300bsDvUM2SYk0QEsUwLZ2ntv2QEjRbOULdRvnOThd8VFowGE3OpBPtBZjL by6slqKwdlAHg7GjdzBykHHTkYijwEHsWNgeZGVgdxyrSLGLJLTDYNQ5HZSxTLTdNyOoITFuVosiVSMM RCgORkZuV9Ytm2NlCiD3XNCeOqWmPDyoNBLbMmE2YH 95sEveRT9TNMDlSEBjZB39JKD1ZRRlUj9FVs4SZaVyWZ0yfy7BYgjtWLVpSmcMAyc7CLwwGB1CgGXqB6 TqySCfz8sBCfSlW7OSOMCrKRNdSr7QJOWjXhAoRCHlZQpuKH2mYNAaGPAUhQpslaL3JB3OFO4cjwEaXL 3UNrYzDd5dJm2VDnVaM6GjQ8WnQRTpKYDAAMweEI7Y OKmjDY0oJP3Ul5JGeBCjiB7qcf7YHISpFXWpXvlfdv0DPmkpH6Q4mEhjZMIwDxQeVIJYTOihYI9WEXMl XOE1JALyOZPuMUJIGuDxR82iAP1DR0Ibe21aYfL6MXDfYtGdESbhNM01xKryoeTggJWnrLgpEQ6QTi6+ DQplbmRvYmoNCnhyZWYNCjAgMjgNCjAwMDAwMDAwMD FnWxE9CsEhCw5KXHVhBFVuVNCoVgVgEUFlIEKwLIozESSvOHArKDU6PEKuHFGqGL3JIiGmXZVvFpFxAL luWSXqRLNher5VUXMeJIVcQCM4EvPiXSWcFWNzBKkeEKRzCYXzFnF7WFBoLGCuVG4PDgAnKJUzAOE3Df DiGRYbJMDplx2MVNXyOXTaDtysLQPvZVXbVQImLHtx YOVvCOW2FOIgWHViVCTdXJ7MBhJiUPLqIRYnKOCuNRXyTACdha4ROPZyQSQoRBD6WEQkWJFdOFKrMCdx HEFrPHU5RsssSHBgPJBbMK7ELoSgIZWuFMR0LPXqRMKaJGVxmx1NCSTxEASdEjhfBsTeWAXhVMIiHKpv XVPlGZI2TcP5SPYlTWHkRI0FQuLeTJYzAHi6XruaDW CmWTJnwu9BVCSmOJVsPUO0ZJLxEVBlMFCqCAseKPNiXQM8ZXP6ZTIhEPKmUZ4LLgWgQVHvGCn8CIGwMK FrDOQxwb4BQXDkASKcCIv3PGDfHHTkPRHlGGxbWEDbAGHmZTL4ZCYnSQLeTI0ZMsUiDMWtIyNbBHqiVP GfSZLims9YCPTnFOTnUPS3MATpBMEqCTPjBNnsOWEy CVDfNPQ2JHQwKAPpMO5CJdAyQRHvUkW7VKbeFBVoSDItsn6WGMCgVNRjYcA9GfNbVVRuQHOuJMlcJJIi RODoYnZ6SRVhQKIqLU3PElZzTYIdGpJ7UhWlEHGjVLFkvi1WzRKbzSxptx9HBMcCEo2QiYweJHV7DDfx Ci5juRQiIjHdXMZQMn4IdbVpLUFhIDCVZRjxRWPrJX Y9BSeqNOg8Vhm7UZKiO8QrY1JzDtCyB3BnWJn8RDS5LeA2IhsnMIV2DXH7Dcv5W9WnCqD4AMBmOUA0ZU VhNzgxYTY+QO0rPEi+Dv5Pi8UsvdO9pxTsSAxhRmb5AR8OFGSQP2IKBz== ID Date Data Source [id number] 07/30/2019 11:01:40 AM EST [facility] Name Value Range Interpretation Code Description Data Dominga rce(s) Supporting Document(s) Telephone Encounter [facility] NZTXXf5cFtEJRjOw02/WGHiqCXHwl3LmFNosZIc4WHgnLVDjR2FlEHG6jT4tFGC6KBzKYaVfVpNjGzS8 lbm [file] ICAgICAgICAgICAgICAgICAgICAgICAgICAgICAgIC AgICAgICAgICAgICAgICAgICAgICAgICAgICAgICAgICAgICAgICAgICAgICAgICAgICAgICAgICAgIC AgICAgICAgDQogICAgICAgICAgICAgICAgICAgICAgICAgICAgICAgICAgICAgICAgICAgICAgICAgIC AgICAgICAgICAgICAgICAgICAgICAgICAgICAgICAg ICAgICAgICAgICAgICAgICAgDQogICAgICAgICAgICAgICAgICAgICAgICAgICAgICAgICAgICAgICAg ICAgICAgICAgICAgICAgICAgICAgICAgICAgICAgICAgICAgICAgICAgICAgICAgICAgICAgICAgICAg DQogICAgICAgICAgICAgICAgICAgICAgICAgICAgIC AgICAgICAgICAgICAgICAgICAgICAgICAgICAgICAgICAgICAgICAgICAgICAgICAgICAgICAgICAgIC AgICAgICAgICAgDQogICAgICAgICAgICAgICAgICAgICAgICAgICAgICAgICAgICAgICAgICAgICAgIC AgICAgICAgICAgICAgICAgICAgICAgICAgICAgICAg ICAgICAgICAgICAgICAgICAgICAgDQogICAgICAgICAgICAgICAgICAgICAgICAgICAgICAgICAgICAg ICAgICAgICAgICAgICAgICAgICAgICAgICAgICAgICAgICAgICAgICAgICAgICAgICAgICAgICAgICAg ICAgDQogICAgICAgICAgICAgICAgICAgICAgICAgIC AgICAgICAgICAgICAgICAgICAgICAgICAgICAgICAgICAgICAgICAgICAgICAgICAgICAgICAgICAgIC AgICAgICAgICAgICAgDQogICAgICAgICAgICAgICAgICAgICAgICAgICAgICAgICAgICAgICAgICAgIC AgICAgICAgICAgICAgICAgICAgICAgICAgICAgICAg ICAgICAgICAgICAgICAgICAgICAgICAgDQogICAgICAgICAgICAgICAgICAgICAgICAgICAgICAgICAg ICAgICAgICAgICAgICAgICAgICAgICAgICAgICAgICAgICAgICAgICAgICAgICAgICAgICAgICAgICAg ICAgICAgDQogICAgICAgICAgICAgICAgICAgICAgIC AgICAgICAgICAgICAgICAgICAgICAgICAgICAgICAgICAgICAgICAgICAgICAgICAgICAgICAgICAgIC KySXFrJNKkRDPtEFScELTeMBt1K5vjESXkUDRfTS8eEFr7Tt8+CCpZPiQlZIS7lgBbbJ8DRH9an5EbCP ptUAYhn3AvWYt4MY6IBMInXWzvFC5KRDstsq9VIQRa VFRxcBYBk9adLcWtSXC2SHVpVszgUG0IYOXwR4weeaTvQXQqIFYLPQ8OUhGnL3PkhD47CNARAc1+DQpl qvRxJnmHLlKfLSDjd4LoQXn8OR3IHEDsQciqq9VaVhRpJMFNRRpfWR0YEWE3GZUwEKMjDe8ZJPGjP939 ynFyVT2ZMw4AYcNmCK9hjx7VUwPnJIIkHkcGTib2PX jeXN3YwFMeFEiTOIckiEgfldGgNQ3wo3XeuHLrFRP6DUPfdaLsMICdG0WqQ1AltH0sTPeGY8dxFZTvEh 7pWd7qBQIlPNNcLxO2GEQWYO3MVHOnSBYflSRwCQLsFMSIWK8QISyaMNX1EqgrvoKblRQfHGqgRH9IXH JlbnQgMjIgMCBSDQo+Ff2EKL4bg0QiOKzsFMQtWZ5x bq0WOZzZEoDgF3N9zIJbI8L3HNnfUt2OBXKqBZAmVhSjRVDWLXtqHM5ENL1fblA9FD0PaHBuTEHeDSKc cMYlADf2J05iiSVeJSqeZH6AZMD+Lily+Cb9AJGWyIHExNKPbCsFnQBRUEhPcP5SjI4MJx5TwU7PtNK24 cVgdurFqDRsuQR0ZBE8fDIGeWVJXCA4RaAFsdK4obu WdUtGyHVSURwSdQ11fjHIuENDfVWChMUZeCx8HNJEiQ7LikxNfgYlltnJtIQXaHUIQDW5QGMmzpfDzcD ZkoQpeLS65yLqcNQ0AOl0ETkHtLP1vpb0ZjEUtVr7SGNSdVN9LNRDcTVXpXPTwTIM4UEWfRzXcJKycON BcWUKsCXH6DUFuISYuZE9RApYjUXLgQBy9CWLgIJJd EXCkxy4QSZDmHRRhWHT6GPNiTWAbKIFvWJajBSRdKSSgYMD8YGYnLETeEB0FUqXrVTPtPEX3EiivVFCi BTTjtu2QCBPhHPVjItB8ICOuWXYpGKTaHXyxVEFuSDDsBOM4RIXwEZMtLL0ISkEqTTUlZEViWZHtACFb VRMgkt0NJGPpLIRvWjEeYZIxFDBzNXQtHXgaZLSrIW S1QIw6RYTrIJPoOF2XAuRaOPSyTSH3ZOHiPKHnMRRmrs2QKUCiLUEcSRn6MtGgPREdKKYoBBisRHDpBP G4DwMoDDAsZZStZV8AYsEbOKLdFXq8MtdnSFKsAUQhhv8TDVZnCNEyDixqLpOpWHMyRWUyMIhtUYFcTB U9PAs3FUFpEVRqZN0ISuAnQJNuCUytYpMyHUEuDXIi ms8QVRPbZNNqUJX1UYLeSBSrUTJsXOtuTKKsNGX4SvZeAMNdMTVyQK1TIiTsEAOlZXa1NuVdGDLxVEJj ju7IZLNcTNNoEFeqHBAcNSKoQBBxPKahJRLzIGFrUuc0XQSfVVDrSE3IVoJfQOHrXvRmPEvtITAbXXIx ru9KSGTxJWTnPZMgIkHuIZOpIDVlTEy6veLeuVSaDP a8RJ7NX3MihwDoMkATFj5Go869YAA2BXEpLy3YN2djNn2vRNXyMKMXFb1XWUu5LkL6XNAzMBUxNMR3IX P7SHHxBOj4KTKmWQEtUIKeZPQ+YNymIpylQTU2AmFfGTG9GNUlQfLgMJTjDyL7CIN1F5XxDy8cJKWNLi 4+OKwntZTkkMgeNOAIYsXzYhGaFAeiZYXYJr1P ID Date Data Source [id number] 07/16/2019 02:24:01 PM EST [facility] Name Value Range Interpretation Code Description Data Dominga rce(s) Supporting Document(s) Progress Notes [facility] YSARXo1uIcWESrPb50/RADmyBRQil8HyXGgeUBu2VRpsTFFzZ0ZhDVI2wH7fDPX0MHvKZzQfCfSrGtXq lbm [file] KQG0kNFwQn5MIHG9NpIRYsEuCU3ZXGc= ID Date Data Source [id number] 07/16/2019 02:23:56 PM EST [facility] Name Value Range Interpretation Code Description Data Dominga rce(s) Supporting Document(s) Progress Notes [facility] YLNQVc8gJvNPFzVt37/EQDvbVPIxw5EmSPufVBa4MAvsHRHbL9VxUOO5hN5eIUF7LAiMKjPyDnBvPrMk lbm [file] 5qUSPNMf6+FQbazUHvnCbfEYVDLeDxRRKkZFenJZEAVf1X ID Date Data Source [id number] 07/04/2019 11:51:18 AM EST [facility] [facility] Name Value Range Interpretation Code Description Data Dominga rce(s) Supporting Document(s) Telephone Encounter [facility] ZZZRWw9kPcDTVlCr27/EYSdiQKGhz4SaYNjlMBt6LZpwHPDbY1TtGZG4hJ4dZCQ7SBuAVsYuJkWuFFGi lbm [file] ICAgICAgICAgICAgICAgICAgICAgICAgICAgICAgICAgICAgICAgICAgICAgICAgICAgICAgICAgICAg ICAgICAgICAgICAgICAgICAgDQogICAgICAgICAgICAgICAgICAgICAgICAgICAgICAgICAgICAgICAg ICAgICAgICAgICAgICAgICAgICAgICAgICAgICAgIC AgICAgICAgICAgICAgICAgICAgICAgICAgICAgDQogICAgICAgICAgICAgICAgICAgICAgICAgICAgIC AgICAgICAgICAgICAgICAgICAgICAgICAgICAgICAgICAgICAgICAgICAgICAgICAgICAgICAgICAgIC AgICAgICAgICAgDQogICAgICAgICAgICAgICAgICAg ICAgICAgICAgICAgICAgICAgICAgICAgICAgICAgICAgICAgICAgICAgICAgICAgICAgICAgICAgICAg ICAgICAgICAgICAgICAgICAgICAgDQogICAgICAgICAgICAgICAgICAgICAgICAgICAgICAgICAgICAg ICAgICAgICAgICAgICAgICAgICAgICAgICAgICAgIC AgICAgICAgICAgICAgICAgICAgICAgICAgICAgICAgDQogICAgICAgICAgICAgICAgICAgICAgICAgIC AgICAgICAgICAgICAgICAgICAgICAgICAgICAgICAgICAgICAgICAgICAgICAgICAgICAgICAgICAgIC AgICAgICAgICAgICAgDQogICAgICAgICAgICAgICAg ICAgICAgICAgICAgICAgICAgICAgICAgICAgICAgICAgICAgICAgICAgICAgICAgICAgICAgICAgICAg ICAgICAgICAgICAgICAgICAgICAgICAgDQogICAgICAgICAgICAgICAgICAgICAgICAgICAgICAgICAg ICAgICAgICAgICAgICAgICAgICAgICAgICAgICAgIC AgICAgICAgICAgICAgICAgICAgICAgICAgICAgICAgICAgDQogICAgICAgICAgICAgICAgICAgICAgIC AgICAgICAgICAgICAgICAgICAgICAgICAgICAgICAgICAgICAgICAgICAgICAgICAgICAgICAgICAgIC AgICAgICAgICAgICAgICAgDQogICAgICAgICAgICAg ICAgICAgICAgICAgICAgICAgICAgICAgICAgICAgICAgICAgICAgICAgICAgICAgICAgICAgICAgICAg AZGgZOEuWFGjNKPiCDAkNAFqFVIdBSZwJBKlGUf0X6enDBGtQRWfKB2jLEd9Pc1+OFbQBaKgXKZ7twEl bT7QXJ4mr4OoBDcdKINbx0LkIMd4JD0VJALeSIwhHR 2OOHgcvx3GVSAmNKXqkDWFn8adQeEnXPJ8PVZqZvexNY3OCBCkG1feyhLwTWYsFTIRDF3MOnXyC3WymC 00VMSNYy4+BHgsycMaCcuUNmGnHDJoz0KfSDl5YA4TENOwCsfbu6BcBaDsGOREULqyOR3RPVN1AJFrCZ NiYf9AWVPxZ779lpBdVS8SJx8CZjOgBN7zdn5YLvQy IPOqVinHFso4RUpfHD9OdKAaUSrKFXohsQlbhcFoQU3cg4PpgDNgOXP3ULIocgZnNUHaU7YzZ5KniJ3e RLyQT8tnLAAgKX1zKE0bIBXcOSVlObQ8FOSOGX6AJJBnGWAfpRMkYFYnUDFQMJ5ZHEurYHV3OoelmyDv sXCfFIjoJH7WZSIhnbWbTcYyQOSBCWb+Yy8LIO2vp8 WuMHsuADVbOU7rqu0XEOyFUoEvT8F6zZEcN4W6ZBqoVe1HLXToODHhCfHgIMRWWToySY8NAP1pcwI4VE 9OjCQsJMBeVVKdtQRfRTf1B01frFWwNNmqSX6OXVU+Lily+Sr3XNZFoTCApBCTzRjMgDHQUOgYtZ0AuV2 PAo4EgT3FvSP66aCvdpgAmZHijZD2TQH6aNWAiPLDJ WK3GfCQuiQ5ibhIkAoVcASJOLcWmV68khJCxWKUgMWGwDYAwUy1NBBGtB9TccjWneTwvplBpLSEnGVZT AT2BKScpbyOsqFHjrMljQQ53uAbwFP8IZq9OZgPuUQ6nfh3GsQGbOl1QVYSfRP8TXXDtOLTcUPPlWYZ3 BKAxIuQmSFdjGKDvJBXeYOM2LLFhPWLcJU7CJkJjHM GmMOi4LDkpANBzRVEcbh5GAHYoSYCfKDNxXtJqIWUiJBQfQEatUIWjYYMqLXC7HRQrRJPdRC4OGdMqRU OhAMLoPeDgXKIlOEQboh1FTUMgQUPnZOOeCXUxAFLhDWPwTYbnCPFrGSBvYzzuINOcQFFvPF8PCzWgXL HwAAP9EOQsYLNqMIFivc9QZDZnXCRmKuy2PSYkWGOj AQMdKUrqJVTzHQRwVmW3UBNqHBWkME9KLoOzJVMnBYN1TdQrEEIwBWFfpw1TNCPlHKPxPCApEhHoBFAj SXMgQOcpFZLwMQV2HKR1ICSoFPLiOO9NFyLpSCUfGXB9LEKsLFLkCJXayv0UPTCgDWTpQbs3YEBkNTEw QELhDSkdMBBwHLJ2OpAaRKKnVHAtCB4VJnMhFOZcMI uzHrPuEMZaFIKkhl2VRCMfIHBsJOPnZASlISMnRUMiBGvlLUTaPIO7BHUwVPDiCSBzXY4NRtTzKYHjME b5ByCuWDRsCREjlr8MXVBiMYGjOMN8ChRbTAAzFXVsABcqYFTmFBZeHJTuTCXaTZVcNH1MVsYzEBHoZz Z3ZOEvYATeJOSzbi6FMOXxZVBhQOy5IQWzCLAdKYOc KHr4fsWkdMZuDOe8YY8RI2TviyVbGsPUZw3Cx956FIR8VMYhTb1GH1xtIx8aOLCzKGBBVc7AYVm4Keg9 WJBfRmZmRtyxVbY9BZI9IiZgE0AyUUYdVeJ7Fds+MBidUMs8ZtG3OEEoGZBxIGs0JMO2NuZpYSN1VfJ3 VlRfHf0gQXYXDv3+WZlbsFUxfFttDENDAfVaOTYhLSukSRKNJc2P ID Date Data Source [id number] 06/18/2019 02:56:48 PM EST [facility] Name Value Range Interpretation Code Description Data Dominga rce(s) Supporting Document(s) Progress Notes [facility] OOKTWp2wZgBPOsMp70/XKDrpEVGqs5BbWCwkUPi8WQovAARbL5UiOQV6vF0hQCE4QHfYSwJwMqJoHKZ7 lbm [file] CONSTRUCTION MANAGER+Gf8VNLEoJWd4W8C3LBRrQDp2J7FVT1ULRIMsKTgaPSnpHMMrLHa4B9S1PHTiL7PXX5Zjvlislf1+ RD1DK11LZYShLWj8W8Q0kMIcE5X6bNiKlMM5MF3QVB1RqZl4mORocE2+JY9OY9JKBtRmTQq4V3F9sZGw W4S2dJmRdDB6SP3TRK9WeRJvKRHtcvAtLt5vJ9SPMC jYIlPTWYG7BO9RxFApHS0XsKRXA1GmbFOmUd6aGZljwZFklM7sNw4jWOycQU0SJcAIUNfJLZX6ZJ5ZeT MjAB7ZqNJYL8FcbYIlLt0wFLwalAZgib6+SV7TBWOzRr3JJb4+MAeaqmOlSybDIhReYQZus0GxFHs7VN 3TZP7yhKglXTO3Dz6InLA4qMAtS9wTBC0MdDBcN53e dZYnUPEqKm9MBtD9pfUhgB1DTC45bHJzg4S6HYSkU9jgAAmws30xSJcqFCwFHW2aCFVOCFsuDYgiFWG8 YxQwjjkjGWLpYb6HErFpJXn9tO7luOP5PFU8JyevrLOlBZjyGhRbOzWiCiQ8kXcsgkp9PXzdGE0gEIas czptZXRhLyc+EFakICKiXEEyYhpKFZGlpR4rhhU3fm QlNNpcrDDcHh6qm9d0XonnEt5fJt1jYYc8VuYmRuXxWXAaDm4xjK74YLaecoIxQr8OXlWcHUN1D2VkAd pSREY+SBpyNYwpdVz2pPVlBQSwUg7GQKRuMFCdJIUpLAIpHKQuRGGjQJYzZRLlGFBeNRLwOENxPHSrLP AgICAgICAgICAgICAgICAgICAgICAgICAgICAgICAg USRtOGFbWSDkFQTjRSIvRVAlKXPxOUPsOKNvLFPiJG8GDZWlEBTcBGNuACDpBVEqXGSyKCKgVZDdTRLi ICAgICAgICAgICAgICAgICAgICAgICAgICAgICAgICAgICAgICAgICAgICAgICAgICAgICAgICAgICAg YVVkECQgVNUzTJNhZN6BZFBsLBEzKDZsCQVgVYPhEU AgICAgICAgICAgICAgICAgICAgICAgICAgICAgICAgICAgICAgICAgICAgICAgICAgICAgICAgICAgIC DwWAPmDSLsNIMsKORiTOSrTXTeZHJbXF7QVOQsIWTgYVWuAMEaCCUkAKXcVSCqBMCuJLFwIYAqMTUjUJ AgICAgICAgICAgICAgICAgICAgICAgICAgICAgICAg NBLrGRNmXJRoQPRgBPPhRPNwCJDcHSXnVVTkUBNbFBBoTM2EERRqKQLdCROqRIHaBEEfMRCqFGWbUNDa ICAgICAgICAgICAgICAgICAgICAgICAgICAgICAgICAgICAgICAgICAgICAgICAgICAgICAgICAgICAg FSZmFJZsTDFpNLQxTMXtRF9PBUJgQQEeKEDzOEGwDA AgICAgICAgICAgICAgICAgICAgICAgICAgICAgICAgICAgICAgICAgICAgICAgICAgICAgICAgICAgIC ZcKIMrUKLqMMSoSLBiQDAuYCTgJIUiNMWfOV5BRVGdYACaOECyUUYaDTEaVDIgGBUhBVTqSXHoEKBjKK AgICAgICAgICAgICAgICAgICAgICAgICAgICAgICAg SJWgMIQfUJKdEMYlLQVlLEQrVLIaESDdLJCyKXHcLIStHUGtQV7VWGLnJMClUHHqYYRuYBNmFTVmSKTy ICAgICAgICAgICAgICAgICAgICAgICAgICAgICAgICAgICAgICAgICAgICAgICAgICAgICAgICAgICAg GNEaOIDhHHMgHBEyMSUtSVAnJS1LAUBiXVJoRSTmSG AgICAgICAgICAgICAgICAgICAgICAgICAgICAgICAgICAgICAgICAgICAgICAgICAgICAgICAgICAgIC TaBSOdXPPjIVXdZMCzIHSoEVEoTSUmWWSdDNErDO3WMUVoYXLnNRCgUDCzADXsVRCoJBJvJVXnSOAkMM AgICAgICAgICAgICAgICAgICAgICAgICAgICAgICAg GGJuTAJyWRWaYELpMVKwPIFgOJWfJLTaQSNgVCWmXRVzNOQuRCMeYR9ZCG12cFVcq7F0LZHfVB1jnyn/ Ev8YFCmvxiHzmHZdHE7HTlEtMB7mms0KPaJtJO8oty4BGPrAErNrE3M6pNOuGVQoNATNAgIjL50uCVeu Ul99ZYrrDLTzDkObFEf3Ao2UVqYdW8crQUEsCqC4WF MgUkV9WMHlYoCzJXrmCU5Gt5BeuEOkYEj+Ea1WBX8bo8LySIadMzJuTZ8uhr1RYEiAFtCaP6WtvjK8RJ FxWMShNb7TKGQbREGrvSWpMpUsTKPSGcWyK7PhsH06NJXRCr1+IWwftxDjNnaZMfCfWEHvf5UqHOl4FP 9DNVUaVXs9xXUnJFXlF9Ggp5NkWs72VJOcXqpoIpsi KDenNXQPtrCoPL1nykovII3GWwRvkZRrRvEvZpQcEUSlWBemQYWDJOwQViJiF2Sze2FcGvF5KRSoJvLk HTxdKEVhVuC6QM06xXxbUA1KSYTwEEDpZZ04LJJmCKKiRw4QSl3DGtRiWU5dfe2VJiFrAYNrBrhBSfh4 CTllIX5TvIVjF9YlaPHfx1xTGzKeX0KPERIxFRDwSw 6XYWFmTtKwZMSiHZugTE0uTOKuLUUPkLbnmnT8ZN3HCS8atySqGT4NLbKaCr3sXc1OXyEcA2OdV1OdKT HvBVHHAColXR0ALBtlTH5jKZ7Cc8YDqFDdpA3mzd0QJHWcGVNlHhrnzw2YYbriX5E7vQhsLZKyZuOaMS JGONxkVJ4UCKQnEFG3CRMwXBZxKJBHIiOnL54kDW6S D2Mhi60qAxC9OHNbRjHaVCqtKV30fTywtlPmdPAqfJnfFR7PPj5+DQplbmRvYmoNCnhyZWYNCjAgMzUN IbWcCLWpJJBnCBViJrW8IzByZm3LBYAaPUUaIAGsJxJbJSGsHTCfVRrlWGUnOJDdBpXbDZPnHTAeIX2N DkRjTVNePKEtGBZdKUPcDVFfyj8AWBXbWNXyMDU3Ms YiAWXpAWHqIDkfUSVbPSP1MUo3CDFxSBXuSI4SOeGkMIQkWFGaEtamXSQiCGBnzu6IXIYtBLBvAAe8XY OmDDQqVHUbYZrfZUEmRWI7ITi6HIInMMEhZN6KZyYoRRYuFZP2NRJdSJCuDSVjku2HUQVqKUSkAaS5Pg DuXQXrZDQrBIaaOZNnSHA2VwS9OCJrQKMqQW6SIbCh VAOuYQtwQYmmQJNhUNLiuc4LJMEaPFRhCvC1HhUcKTSfSDHrGXmwEVWxIYR1Rsw7TGZgHOFlBZ5HOjFd COXmWnXdCsslUAAhCVExul5CJNOkYNDoOBD4ISGfVVGhMYGsEPjaDRYsJHHgBSGxGQMsMBJgAH6RGiZf WLElVhB1KMPiJCTaFCWpsi2RVDPjNDXuZUzaMYTpKM OnTZLfWStyEDLrRXTuPYtuEHZsWRTiMT7MMfRrWTEbYaLzAnXnVJWlSSScpv4MCFJeMAYtPuLiSQVgEZ QsRDAuSYrqMDNgSGIaLBkpYNPyQBCvQK7LOdOeYGAxOdWcJeYzISCiUUOrdt2OAGStBPWpNoO1XQHzOM NdFIRvJIkpBEHeGYRyVPOcUGWtUWAdJU7FWbDkWYSy IYD5RgCqCEBwYIDjwd5FOHKoRZM2QLd3LAXnESPaJLAtWJccOLRfYOAdEPdaEBSjLSEsOJ2CUwXcWVCi RCQkVpGsQTTiARZniv8KDIVuEFK4OUw2AWTsPLSzWZTiPHpqTWLeGXDpHqA5QCJhOLJgYF0IJvYxMXUu AXYkQVSfESWnRQQbpj3NQMWdUBC8ShOeFgHaTNAdYC VxSHi3dfTphOKwPLz3VZ3SO8RxjeRoSnZECx9Ep023UJW8ENDfYn3DK8ifCj7dZQZiXILZSb5JJBp1GU L0MQLeTdE0RAcjSAV1GDSjEWj1AJQ3ZmK6RvmgXFM+VDq1Oif3AFSwGfloNXVhZtajENZ4EGKxZLFcZI W9DLCiTx9oNJUJKp2+UClzvXOlqLshMJNDYlQbAoolYRxlPRMMMd9C ID Date Data Source [id number] 06/10/2019 01:26:11 PM EST [facility] HISTORY:29 year-old female for evaluation. Clinical estimatedgestational age of 19 weeks and 6 days.TECHNIQUE: Multiple static images from real-time, transabdominal obstetricalultrasound are s ubmitted.ENCOUNTER: Subsequent.COMPARISON:05/08/2019FINDINGS: A single intrauterine gestation is identified. The fetus is currentlyin breech presentation. Normal body movement and cardiac activity areobserved, with a heart rate of approximately 155 beats per minute. Thereis a normal amount of amniotic fluid present. The placenta is posterior inlocation, with no low lying placenta or placenta previa. The maternalendocervical canal appears normal, measuring 5.0 cm in length.Normal-appearing head, nose/lips, spine, upper extremities, lowerextremities, 4 chambered heart, three-vessel umbilical cord, gastric bubble,kidneys, and urinary bladder are visualized.Please see accompanying data sheets for growth parameters. Based upon thesedata, the EGA is 19 weeks and 6 days, which confirms appropriate intervalgrowth.IMPRESSION: Single, live intrauterine gestation at 19 weeks and 6 days,currently in breech presentation. Normal anatomic survey.Electronically Signed by Rosalino Perez MD 06/10/2019 1:26 PM Name Value Range Interpretation Code Description Data Dominga rce(s) Supporting Document(s) ID Date Data Source [id number] 06/06/2019 01:48:07 PM EST [facility] Name Value Range Interpretation Code Description Data Dominga rce(s) Supporting Document(s) Addendum Note [facility] HCRKBl2yQmFVIsBf24/EVDotXGPgk1RzEVezFRo1HZrdTBKhH4GhKXE7yG7zOUP3FUlPBvQuWaGiFCVt [facility] [file] DQo+Zu9By2XqveH7jiReKWdaJGS7SP6NJONWK9RLSx== ID Date Data Source [id number] 06/19/2019 09:56:00 AM EST [facility] Name Value Range Interpretation Code Description Data Dominga rce(s) Supporting Document(s) Patient's Estimated Due Date (ROSE MARY) 10/29/19 [facility] Method used to Determine ROSE MARY ultrasound [facility] Result Summary Normal risk [facility] Down syndrome screen risk estimate <1/50,000 <1/270 Normal (applies to non- numeric results) [facility] Down syndrome maternal age risk 1/620 [facility] Trisomy 18 screen risk estimate 13,700 <1/100 Normal (applies to non-numeric results) [facility] Neural tube defect risk est /8,000 [facility] AFP 40.2 ng/mL [facility] AFP MoM 1.24 MoM <2.50 Normal (applies to non-numeric resul ts) [facility] uE3 1.01 ng/mL [facility] uE3 MoM 0.76 MoM [facility] hCG, TOTAL 6.3 IU/mL [facility] hCG, Total MoM 0.47 MoM [facility] Inhibin MoM 0.55 MoM [facility] INHIBIN 63 pg/mL [facility] INTERPRETATION See Ref Lab Comment [facility] Screen negative for neural tube defects, Down syndrome andtrisomy 18. RECOMMENDED FOLLOW UP None. [facility] Additional comments Reviewed by Kunal Armstrong M.D. [facility] Collection Date 06/06/19 [facility] Birth[birth year] [facility] Units (lbs or kg) 296 [facility] Calculated age at ROSE MARY 29 years [facility] Maternal Weight 296 lbs [facility] Insulin dependent diabetes No [facility] Patient Race non-Black [facility] Current Cigarette Smoking Status: non-Smoker [facility] ROSE MARY by U/S scan 10-29-19 [facility] GA on collection by U/S scan 19,2 wk,d [facility] GA used in risk estimate Scan estimate [facility] IVF No [facility] Number of Fetuses 1 [facility] Number of Chorions Not provided by client [facility] Prev Down (T21)/Trisomy Preg No [facility] Prev w/Neural Tube Defct No [facility] Patient or Father has NTD No [facility] Initial or repeat testing Initial testing [facility] Physician Phone Number Not provided [facility] GENERAL TEST INFORMATION See Ref Lab Comment [facility] This screening provides an estimation of risk, not adiagnosis. Incorrect or incomplete information maysignificantly alter results. Risks are adjusted for donoreggs, frozen embryos, and IVF.Results may be unreliable in twin pregnancies with a fetaldemise. Results are not available for pregnancies withtriplets and higher-order multiples.A positive result occurs when the risk for Down syndromeequals or exceeds 1 in 270, when the risk for trisomy 18equals or exceeds 1 in 100, or when the AFP MoM equals orexceeds 2.5.Screen results and family history influence individualrisk. If there is a family history of a neural tube defect,chromosome abnormality, or other inherited condition,consider the option of a genetic consultation.For further information, please contact the maternalscreening laboratory at . ADDITIONAL INFORMATION This test was developed and its performance characteristicsdetermined by [facility] in a manner consistent with CLIArrady children's hospitalirements. This test has not been cleared or approved bythe U.S. Food and Drug Administration.Test Performed by:[place], [place] [address]Lab Director: Live Rodriguez M.D. Ph.D.; CLIA# [id number] above 38 analytes were performed by [employer] ([id number]) ID Date Data Source [id number] 06/10/2019 06:05:00 PM EST [facility] Name Value Range Interpretation Code Description Data Dominga rce(s) Supporting Document(s) Latex, IgE <0.35 kU/L [facility] Class 0 (Negative <0.35)Test Performed b y:[address] [address] Director: Live Rodriguez M.D. Ph.D.; CLIA# [id number] above 1 analytes were performed by [facility] ([id number]) ID Date Data Source [id number] 06/06/2019 09:48:16 AM EST [facility] Name Value Range Interpretation Code Description Data Dominga rce(s) Supporting Document(s) Addendum Note [facility] WLMEJy3yOmYWVoDp94/SGRnyRFXlo2KvCMztQGj4OWsmXZZbA6FvHOZ3sN4rIZW4HUsJFyTiBaJbFJLj lbm [file] JULIÁN+Cc5d23CM0X9JztT+5Hmr7LI4wjQ7FgfW8eEbHlxf+q7ub6m00s7gBzk0bHiu9YGkRtjoYwwBnkgf0 [file] LeEoJD5TMw7SQqC3KRX5sDTwOg3NCNn0QNIIYgZfSB3ITRp= ID Date Data Source [id number] 06/06/2019 09:48:11 AM EST [facility] Name Value Range Interpretation Code Description Data Dominga rce(s) Supporting Document(s) Progress Notes [facility] BAZZLy4dUyRBYgSk05/HBAdfWLJaj3SbKRjwBLh5TJraAQCvP6UfBGK8zN4bODC9MRlCThTrDlSkHLVq lbm YkVcmLUcIdLQZmHidEXsTdQAkdLphbdGRuQO8KqLT2BEWtN90qELVfKMYfG1NwGQX5DED+Hv8WGLPikS ZzAJ6YZzvI5Mndf3w21w7m/K81znB1NItDFDB7SlOMtuhufaD76jx7pmK8wOW5lNds5Ydtcz1AtLqnOl x1YlA5wvP3DAWZ8E54hnizAWO/fmZHmeacs/r/3a+Z sbzqxt19R5u1ZRs1Jkso7ACyXZYOP4/B/arE/Z7JAeQIht/FN2fFdW0VZImHcqMkfmSvBjAO7N1T+[address]/DAETyfs+UFrow5e8mGqzSnW6S0NoDiStQhYG+bahGifXmLwsQcb6Ztl04uJFjmzQ94ROEtg+Ekh /NFFUadj5TxrtsNNUQXHVpFCVFfGEMX1YGOc/JDb0N [file] QaVSkxSEHPRk0D ID Date Data Source [id number] 06/06/2019 09:31:56 AM EST [facility] Name Value Range Interpretation Code Description Data Dominga rce(s) Supporting Document(s) Progress Notes [facility] MSCJHq7mJtPMLqYs22/XWRzgOVJin4NpPKwkETf4WJqbUHXaY3WdQIQ3zY7tEUI5CLtLFlVjAvFlTAGc lbm [file] ICAgICAgICAgICAgICAgICAgICAgICAgICAgICAgICAgICAgICAgICAgICAgICANCiAgICAgICAgICAg ICAgICAgICAgICAgICAgICAgICAgICAgICAgICAgIC AgICAgICAgICAgICAgICAgICAgICAgICAgICAgICAgICAgICAgICAgICAgICAgICAgICAgICAgICANCi AgICAgICAgICAgICAgICAgICAgICAgICAgICAgICAgICAgICAgICAgICAgICAgICAgICAgICAgICAgIC AgICAgICAgICAgICAgICAgICAgICAgICAgICAgICAg ICAgICAgICANCiAgICAgICAgICAgICAgICAgICAgICAgICAgICAgICAgICAgICAgICAgICAgICAgICAg ICAgICAgICAgICAgICAgICAgICAgICAgICAgICAgICAgICAgICAgICAgICAgICAgICANCiAgICAgICAg ICAgICAgICAgICAgICAgICAgICAgICAgICAgICAgIC AgICAgICAgICAgICAgICAgICAgICAgICAgICAgICAgICAgICAgICAgICAgICAgICAgICAgICAgICAgIC ANCiAgICAgICAgICAgICAgICAgICAgICAgICAgICAgICAgICAgICAgICAgICAgICAgICAgICAgICAgIC AgICAgICAgICAgICAgICAgICAgICAgICAgICAgICAg ICAgICAgICAgICANCiAgICAgICAgICAgICAgICAgICAgICAgICAgICAgICAgICAgICAgICAgICAgICAg ICAgICAgICAgICAgICAgICAgICAgICAgICAgICAgICAgICAgICAgICAgICAgICAgICAgICANCiAgICAg ICAgICAgICAgICAgICAgICAgICAgICAgICAgICAgIC AgICAgICAgICAgICAgICAgICAgICAgICAgICAgICAgICAgICAgICAgICAgICAgICAgICAgICAgICAgIC AgICANCiAgICAgICAgICAgICAgICAgICAgICAgICAgICAgICAgICAgICAgICAgICAgICAgICAgICAgIC AgICAgICAgICAgICAgICAgICAgICAgICAgICAgICAg ICAgICAgICAgICAgICANCiAgICAgICAgICAgICAgICAgICAgICAgICAgICAgICAgICAgICAgICAgICAg ICAgICAgICAgICAgICAgICAgICAgICAgICAgICAgICAgICAgICAgICAgICAgICAgICAgICAgICANCjw/ mKHzP7vjtANqjcL5S6ziWg1PAf1UCN4yk3HmCYNxPN mvxaVxWanWAkIkDPCzHuvNOco1RWwfFT1EvAUwG2RaO2BnZVwpQS2ZTKLjVKQwtJUhDTBmTYPiHvM3QU HaGNhgDL3LfHJuRNjsREFuRHQqIY0WWEFzN290xaFzRT5DTo4HDoHiLW3zrk2ZRtQoMRVgNnrLPgg3TI jePS6NmTGvzZGuEeAmBBUNPnBzP9rxo9OmRjFnYKFJ MTwgIA7On7AztRIpPBt+Sr8UYK2hv6KgZNdoJaVwWT0zys3RBFsKIpEdO6OnyUgqSWGsx5ayJFNmMU0g lAJyTDF1HY8dwagbGHoFvT7mODNYVLJkiF4iDVPAQEY6WECnIh2mEOOcXOK0UiBsNMEOFD1NYCSkGRLq zIXaVDDuAWGTOQ8HVCkzMQT5MwiezkIcpKJoTSnaSU 9QYXJlbnQgMjIgMCBSDQo+Mn9WVA8wm6FcZOyhKMVkQB3djk8WGQlPLdPfM9N3cVXhD3Y0ZBzlKy7RHB CqEOEvGrVnSGIGUPniUQ6AFS6wgwY8UF5WpNKiJWBuKTBgxXHrRNy9E17usAPcODntZW2SKNA+Lily+Pg 5WMRKkLBOtXIVrDbJfLWVPQwToX1RhJ6LNl8XcD8Bp CK45pFpslpHiEXsdNX3KKF2cRHAaKCTEYZ7WqPPkaS6nzoJzNaLwPOURQzJpQ98aiAUiHWNvRLKqXNWb Qj4RAYOdW7VizbCylMmxidFmFAWaKTYOTV5KYPuroyNtoTYeuNqsLF61uXpvCT9BIe0KHaOyRL8pak9A lSMhFc8WNADwPX2FYZWfAIFkYFWnLWG4WBSsBpCrNL peKDXdXXHxSUO7RIDySUWkMB5ZXzKjCPLfNLt4MbWjAYLlYFDprq5XQQUbWXZtWMK1QUHmALLzMWSiXP uiZYVqOILwPFF1SMPaPSBgGJ0KCyAoLZRgLVL0QJNcPRDmBHUhgu4IPNZmCQLmVCY8UYNuTMBoXJHmVS mpRIJnGMRwWOH5CHClVGVeCF0TIrKjEHKzAJSdGNsc NSJyKXQyyo4PYIFsXLCqYsCqFUTbJDOePCXfZZurMBZsTEWhVQUwUHEmMFAiWI0GTiMmZTEwTQU3BiMe XNVkJZKxrx5GEFRxRVZiJzj4NjYhERAeFSLvPJowNRQgNNE7IQvjBZFuIMJgKM2UTyVdNJHxJZK2XEjh LLQsLCOiys3DPUTnWCZdBexeEePzZDZfHYFfELhvBT ClYQQ8TRI4SZEgOSChRX6CQeZjXONhPOnvPFVrQDPnQQNfmr0ASAYoNKEiATJ1KXDoRUFhSAYzWLalUI XvCCM1WcV1XDYdABAwNX6BFuFtNKMwXKa1PAExCLUpKVYjzg0LTIUiMEYnRJdqJHTrIQNiIVUvYPbbEA RfTCDhYcG4LSDrUVYwSS9SBxLyPAYfIwLdRxtsEAWp NYLrxe4QHLXjQCQqWLB9PLRrEKHoTBRgIEd2yqXvjGVaZEh7UM4TN0VdyvRgRlSHKb9Mv876IKY2ELSb Cf4JT3gjCe1mFNYxEHTZAd0ECFn2SpVtALUoWXOgDWUlYhR6ZLQ7RZKyDrkzHCO2XvRqZDH+IDxmYzI4 UwO9Z4N7DoRvYGP7VYGoLIPcEUAtDigaApRmWy1k XSANCj4+XSnirCXvjJduPTUVGsArFeK6DRbjJYHUJc2P Procedure Social History Code Duration Value Status Description Data Source(s ) Smoking 05/18/2020 12:00:00 AM EST Never Smoker completed Never S moker eCW1 ([facility]) Smoking 05/18/2020 12:00:00 AM EST Never Smoker completed Never S moker eCW1 ([facility]) Alcohol intake 10/13/2019 12:00:00 AM EDT Never completed [facility] Smoking 10/13/2019 12:00:00 AM EDT Never smoker completed Never s moker [facility] Alcohol intake 10/09/2019 12:00:00 AM EDT Never completed [facility] Smoking 10/09/2019 12:00:00 AM EDT Never smoker completed Never s moker [facility] Alcohol intake 10/02/2019 12:00:00 AM EDT Never completed [facility] Smoking 10/02/2019 12:00:00 AM EDT Never smoker completed Never s [facility] Vital Signs ID Date Data Source UNK Name Value Range Interpretation Code Description Data Source(s) Body surface area Derived from formula 2.46 m2 2.46 m2 [facility] ([facility]) Body weight 144.302 kg 144.302 kg [facility] ([facility] [place] body weight 135 [lb_av] 135 [lb_av] [facility] Body mass index (BMI) [Ratio] 49.8 kg/m2 49.8 k g/m2 [facility] ([facility]) Body weight 318.12 [lb_av] 318.12 [lb_av] [facility] Body height 67 [in_i] 67 [in_i] [facility] ([facility]) 5'7" Diastolic blood pressure 65 mm[Hg] 65 mm[Hg] [facility] ([facility]) Systolic blood pressure 130 mm[Hg] 130 mm[Hg] M [facility] ([facility] ) Diastolic blood pressure 84 mm[Hg] 84 mm[Hg] eCW1 ([facility]) Systolic blood pressure 132 mm[Hg] 132 mm[Hg] e CW1 ([facility]) Body temperature 97.9 [degF] 97.9 [degF] eCW1 ( [facility]) Respiratory rate 18 /min 18 /min eCW1 ([facility]) Heart rate 83 /min 83 /min eCW1 ([facility]) Body mass index (BMI) [Ratio] 49.83 kg/m2 49.83 kg/m2 eCW1 ([facility]) Body height 67 [in_i] 67 [in_i] eCW1 ([facility]) Body weight 318.2 [lb_av] 318.2 [lb_av] eCW1 ([facility]) Respiratory rate 20 /min 20 /min [facility] Body temperature 36 Rhonda 36 Rhonda [facility] Heart rate 91 /min 91 /min [facility] Diastolic blood pressure 68 mm[Hg] 68 mm[Hg] [facility] Systolic blood pressure 138 mm[Hg] 138 mm[Hg] [facility] Oxygen saturation in Arterial blood by Pulse oximetry 99 % 99 % [facility] Body mass index (BMI) [Ratio] 50.43 kg/m2 50.43 kg/m2 [facility] Body weight 146.058 kg 146.058 kg [facility] Body height 170.2 cm 170.2 cm [facility] Respiratory rate 18 /min 18 /min [facility] Body temperature 36.28 Rhonda 36.28 Rhonda [facility] Heart rate 95 /min 95 /min [facility] Diastolic blood pressure 63 mm[Hg] 63 mm[Hg] [facility] Systolic blood pressure 136 mm[Hg] 136 mm[Hg] [facility] Body mass index (BMI) [Ratio] 50.43 kg/m2 50.43 kg/m2 [facility] Body weight 146.058 kg 146.058 kg [facility] Body height 170.2 cm 170.2 cm [facility] Patient Treatment Plan of Care Planned Activity Planned Date Details Description Data Source (s) blood pressure kit-extra large kit 09/25/2019 12:00:00 AM EDT [facility] Labetalol hydrochloride 200 MG Oral Tablet 09/25/2019 12:00:00 AM E DT [facility] Omeprazole 20 MG Delayed Release Oral Capsule 08/06/2019 12:00:00 A M EST [facility] Sertraline 25 MG Oral Tablet 06/06/2019 12:00:00 AM EST [facility] Aspirin 81 MG Chewable Tablet 05/06/2019 12:00:00 AM EST [facility]
[2020-07-27] MEDS ORDERED: LR 1,000 ML IV ONE (06:30)
[2020-07-27] MEDS ORDERED: fentaNYL 250 MCG/5 ML INJECTION (J3010) As Ordered ONE (06:56)
[2020-07-27] MEDS ORDERED: MIDAZOLAM INJ 2MG/2ML VIAL (J2250 PER 1MG) As Ordered ONE (06:56)
[2020-07-27] MEDS ORDERED: dexameTHASONE 4 MG/ML 1ML VIAL (J1100 PER 1MG) As Ordered ONE (06:57)
[2020-07-27] MEDS ORDERED: KETOROLAC 60MG 2ML VIAL As Ordered ONE (06:57)
[2020-07-27] MEDS ORDERED: PHENYLephrine 500MCG 5ML (100MCG/ML) SYRINGE As Ordered ONE (06:57)
[2020-07-27] MEDS ORDERED: ePHEDrine SULFATE 25 MG/5 ML(5MG/ML) SYRINGE As Ordered ONE (06:57)
[2020-07-27] MEDS ORDERED: ONDANSETRON 4MG/2ML VIAL As Ordered ONE (06:57)
[2020-07-27] MEDS ORDERED: ACETAMINOPHEN 1000MG 100ML IV BTL (OFIRMEV) (J0131 PER 10MG) As Ordered ONE (06:57)
[2020-07-27] MEDS ORDERED: SUGAMMADEX SODIUM 500 MG/5 ML VIAL (BRIDION) As Ordered ONE (06:58)
[2020-07-27] MEDS ORDERED: ROCURONIUM BROMIDE 50 MG/5 ML VIAL As Ordered ONE ×2 (06:58→09:00)
[2020-07-27] MEDS ORDERED: LIDOCAINE 2% 100MG/5ML SDV (FOR ANES.) As Ordered ONE (06:58)
[2020-07-27] MEDS ORDERED: propofoL 200 MG/20 ML VIAL As Ordered ONE (06:59)
[2020-07-27] MEDS ORDERED: BUPIVACAINE HCL 0.25% 30ML VIAL As Ordered ONE (07:13)
[2020-07-27] MEDS ORDERED: BUPIVACAINE LIPOSOME/PF 1.3% 20ML VIAL (13.3MG/ML)(EXPAREL)(C9290 PER1MG) As Ordered ONE (07:14)
[2020-07-27] MEDS ORDERED: fentaNYL 100 MCG/2 ML INJECTION (J3010) As Ordered ONE (09:27)
[2020-07-27] MEDS ORDERED: NALOXONE INJ 0.4MG/1ML VIAL (J2310 PER 1MG) As Ordered ONE (09:59)
[2020-07-27] MEDS: fentaNYL 100 MCG/2 ML INJECTION (J3010) IV PRN ×4 (10:29→10:45)
[2020-07-27] MEDS ORDERED: ACETAMINOPHEN 500 MG TAB PO PRN (10:30)
[2020-07-27] MEDS ORDERED: LR 1,000 ML IV SCH (10:30)
[2020-07-27] MEDS ORDERED: NORCO, ANEXSIA 5/325MG TABLET (HYDROcodone/ACETAMINOPHEN) PO PRN (10:30)
[2020-07-27] MEDS ORDERED: ONDANSETRON 4MG/2ML VIAL IV PRN (10:30)
[2020-07-27] MEDS ORDERED: IBUPROFEN 600MG TAB PO PRN (10:30)
[2020-07-27] MEDS: oxyCODONE 5MG TAB PO PRN ×2 (11:02→11:35)
[2020-07-27 14:40] VITALS: BP 144/79
--- NOTE | 2020-07-27 21:15 | RO ---
OPERATIVE NOTE DATE OF OPERATION: 07/27/2020 PREOPERATIVE DIAGNOSIS: Ventral hernia. POSTOPERATIVE DIAGNOSIS: Ventral hernia. PROCEDURE: Robotic-assisted laparoscopic repair of ventral hernia with mesh. The mesh utilized was a 12 cm round Parietex patch, reference code [id number] and lot number [id number]. SURGEON: Prashant Chun MD PUBLIC RELATIONS: None. ANESTHESIA: General. INDICATIONS FOR THE PROCEDURE: The patient is a 30-year-old woman who was seen for a small bulge noted above the umbilicus. Imaging confirmed a fascial defect just above the level of the umbilical dimple. She has had a previous cholecystectomy and is unclear if this represents a primary umbilical hernia although I suspect this may well be an incisional hernia related to one of her laparoscopic trocar sites. She is now for repair. DESCRIPTION OF PROCEDURE: The patient was brought to the operating room and placed on the table in a supine position. The patient was placed under general endotracheal anesthesia. The patient's abdomen was prepped and draped in a sterile fashion. 1/4% Marcaine was infiltrated at each of the trocar sites as needed. Initially a transverse incision was made in the lateral left upper quadrant just below the costal margin. I attempted to pass a Veress needle but because of her significant obesity, I could not be certain of its placement. I therefore made an incision through an old scar high in the epigastrium. The Veress needle was inserted and after a positive hanging drop test, the abdomen was inflated with carbon dioxide gas. An 8 mm robotic port was placed over the scope and this was advanced through the initial incision in the lateral left upper quadrant without difficulty. Initial inspection showed no evidence of Veress needle or trocar injury. There was some omentum identified extending up into her supraumbilical hernia along the midline. The Veress needle was seen high in the epigastrium. A second 8 mm port was placed further lateral and approximately 8-10 cm inferior to the first port and a third port was placed low in the left lower quadrant. The patient was tilted to a slight Trendelenburg position to level the abdomen. The Veress needle was removed. The patient cart with the [employer] XI robot was brought into position and the endoscope arm was docked to the middle port. Targeting took place on her hernia. She has been rolled slightly to the right prior to docking the robot. After targeting, a cauterizing scissor and a fenestrated bipolar were inserted. I then moved to the control console to proceed with the surgery. Initially, the omentum was reduced from within her hernia. Her hernia defect was approximately 2-1/2 cm but appeared to have some lobulations into the subcutaneous tissues. Most of the omentum reduced readily but there were two fine adhesions that were cut to free the last strands. I then began creating a flap of the peritoneum and preperitoneal fat beginning at the lateral edge on the left of the preperitoneal fat and extending across the midline to the right. As the hernia defect was encountered, it was not possible to reduce the peritoneum into the abdomen intact and so there was a defect at the middle of the flap. A second smaller, approximately 1 cm fascial defect was identified just inferior and slightly at the right edge of the larger defect. The flap development continued to the right lateral edge of the preperitoneal fat. This gave an approximately 9 cm wide area initially for placement of mesh. A 1-0 Stratafix suture was inserted and this was used to close the fascial defects longitudinally. The pressure within the abdomen was reduced to 10 mmHg while this was accomplished. This did narrow the available space for placement of mesh. A 12 cm round Parietex patch was trimmed on both edges to create a piece of mesh approximately 12 cm in length but only 9 cm in width. This was rolled and inserted into the abdomen. It was too wide to fit within the preperitoneal space so approximately a cm to a cm and a half was trimmed off one edge. An absorbable 2-0 V-Loc suture was then begun and sutured across the midpoint of the mesh and then down one side to suture the periphery. A second suture was carried down the longitudinal midline of the mesh, suturing this in place and then continued to perform a portion of the suturing of the circumference of the mesh. The circumferential suturing was completed with an additional suture. This seemed to nicely apply the mesh along her midline, nicely covering the sutured defect with an excellent overlap. The peritoneal flap was then closed with a running suture of 2-0 V-Loc. A final suture was placed to close the defect in the midline of the peritoneum. The intra-abdominal pressure was reduced while this was sutured and the gas was compressed from beneath the mesh as the final suture was placed. The remaining needle and fragments of mesh were removed from the abdomen. Inspection showed no evidence of any bleeding. Robotic instruments were removed. The robot was undocked and patient cart withdrawn. I then returned to the patient's side. The abdomen was deflated and the trocars were removed. The three trocar sites and the Veress needle site were all closed with buried sutures of 4-0 Vicryl and Steri-Strips. Light dressings were applied. The patient tolerated the procedure well without apparent complication. She was awakened in the operating room, extubated and moved to the recovery room in stable condition. SANTOS
== END 2020-07-27 15:06 | disposition home or self-care (01) ==
LOC: M SDC 06:16
PROVIDERS: ATTEND Surgery
DX: K43.9 Ventral hernia without obstruction or gangrene (principal); E66.01 Morbid (severe) obesity due to excess calories; Z91.040 Latex allergy status; K21.9 Gastro-esophageal reflux disease without esophagitis; F41.9 Anxiety disorder, unspecified; J45.909 Unspecified asthma, uncomplicated
CPT/HCPCS: 49652; 81025; C1781; J0131; J1100; J1885; J2250; J2310; J2370; J2405; J3010; S2900

== ENCOUNTER → 2022-09-11 | Outpatient (CLI) | payer OTHER | LOC: M SOG 08:22 | PROVIDERS: ATTEND Physician Assistant | DX: M25.531 Pain in right wrist (principal) ==